=== PATIENT | female | born 1985 | race Two or more races ===

== ENCOUNTER → 2020-07-08 11:19 | Outpatient (BNVA) | payer MEDICAID, SELFPAY | PROVIDERS: Visit Provider Obstetrics & Gynecology | DX: Z76.89 Persons encountering health services in other specified circumstances (principal) ==

== ENCOUNTER 2020-11-19 21:19 | Emergency (ER) | payer MEDICAID, SELFPAY ==
[2020-11-19 21:59] VITALS: BP 134/80; PULSE 71; RESP 16; TEMP 36.6; O2SAT 100; BMI 21.6
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
[2020-11-20] MEDS: Lidocaine HCl 1 % MPF 5 ML VIAL SUBCUT (01:47)
[2020-11-20] MEDS: Ibuprofen 600 MG TABLET PO (02:01)
== END 2020-11-20 02:02 | disposition home or self-care (01) ==
PROVIDERS: Emergency Provider Emergency Medicine; PCP Internal Medicine
DX: M60.28 Foreign body granuloma of soft tissue, not elsewhere classified, other site (principal); Z18.81 Retained glass fragments
CPT/HCPCS: 20520; 99283; 99284

== ENCOUNTER 2022-02-05 22:07 | Emergency (ER) | payer MEDICAID, SELFPAY ==
--- NOTE | 2022-02-05 23:17 | PC.NURSE ---
pt called to triage, no answer
[2022-02-05 23:27] VITALS: BP 118/70; PULSE 80; RESP 20; TEMP 37.6; O2SAT 100; BMI 24.3
--- NOTE | 2022-02-06 00:22 | ED.EXTPRO ---
HPI - Extremity Problem General Chief complaint: Extremity Problem Stated complaint: knee/ thigh injury Time Seen by Provider: 02/05/22 23:24 Source: patient Mode of arrival: ambulatory Limitations: no limitations History of Present Illness HPI Narrative: Patient healthy was lifting heavy box at work about 4 days ago since then complaining of slight pain in the left lower back and left knee able to ambulate as such no swelling of the knee no prior history of knee or back problems Related Data Home Medications Medication Instructions Recorded Confirmed azithromycin 250 mg tablet mg PO 07/08/20 benzonatate 100 mg capsule 100 mg PO Q8H PRN cough 07/08/20 ussuptkfkp-hvbtmaqlmhjmi-echiavnk 1 tab PO TID PRN migraine 07/08/20 50 mg-325 mg-40 mg tablet docusate sodium 100 mg capsule 100 mg PO BID PRN 07/08/20 hydrochlorothiazide 12.5 mg capsule 12.5 mg PO DAILY 07/08/20 sertraline 50 mg tablet 50 mg PO DAILY 07/08/20 tramadol 50 mg tablet 50 mg PO Q12H PRN 07/08/20 Previous Rx's Medication Instructions Recorded ibuprofen 600 mg tablet 600 mg PO Q6H PRN pain #20 tabs 02/06/22 Allergies Allergy/AdvReac Type Severity Reaction Status Date / Time acetaminophen [ACETAMINOPHEN] Allergy Severe FATTY LIVER Unverified 02/05/22 23:31 sodium [SODIUM] Allergy Unknown UNKNOWN Unverified 02/05/22 23:31 sodium chloride Allergy Unknown Swelling Verified 02/05/22 23:31 Motrin Allergy Unknown Swelling Uncoded 02/05/22 23:31 Review of Systems Review of Systems: Yes all other systems are reviewed and are negative PMFSH Past Medical History Medical History Endometriosis Surgical History Tubal ligation status Social History Social History Alcohol intake: never Advance Directives: No Advance Directives Information Provided: Yes Physical Exam Vital Signs: Vital Signs: Last Vital Signs Temp 99.6 F 02/05/22 23:27 Pulse 80 02/05/22 23:27 Resp 20 02/05/22 23:27 BP 118/70 02/05/22 23:27 Pulse Ox 100 02/05/22 23:27 O2 Del Method 02/05/22 23:27 BMI result Body Mass Index 24.3 Back/Spine/Pelvis: Back/spine/pelvis image: 1. Slight tenderness no midline tenderness good range of movement Extrem: Knee images: 1. Slight tenderness about the patella good tendon function no knee effusion anterior drawer sign negative Huy's sign negative MDM - Extremity (Nontraumatic) MDM Narrative Medical decision making narrative: Patient with musculoskeletal lower back and left knee discharge patient home on ibuprofen Discharge Plan Discharge Clinical Impression: Strain of left knee Patient Disposition: Home, Self-Care Instructions: Knee Pain (ED) Additional Instructions: Rest your left knee apply Deangelo wrap or knee brace Ibuprofen for pain as prescribed Prescriptions: New ibuprofen 600 mg tablet 600 mg PO Q6H PRN (Reason: pain) Qty: 20 0RF No Action tramadol 50 mg tablet 50 mg PO Q12H PRN cgvpbdzftr-cgeskpgobgeqc-tccn 50-325-40 mg tablet 1 tab PO TID PRN (Reason: migraine) sertraline 50 mg tablet 50 mg PO DAILY hydrochlorothiazide 12.5 mg capsule 12.5 mg PO DAILY docusate sodium 100 mg capsule 100 mg PO BID PRN benzonatate 100 mg capsule 100 mg PO Q8H PRN (Reason: cough) azithromycin 250 mg tablet PO Interventions: ED Discharge Assessment Last Done: 02/06/22 00:30 Discharge Date/Time: 02/06/22 00:32
== END 2022-02-06 00:32 | disposition home or self-care (01) ==
PROVIDERS: Emergency Provider Internal Medicine
DX: S86.812A Strain of other muscle(s) and tendon(s) at lower leg level, left leg, initial encounter (principal); X50.0XXA Overexertion from strenuous movement or load, initial encounter; M54.50 Low back pain, unspecified; Y93.89 Activity, other specified; Y92.59 Other trade areas as the place of occurrence of the external cause; Y99.0 Civilian activity done for income or pay
CPT/HCPCS: 99282; 99283

== ENCOUNTER 2022-03-06 14:02 | Emergency (ER) | payer MEDICAID, SELFPAY ==
--- NOTE | ~2022-03-06 | XR_ITS ---
EXAMINATION: XR KNEE, RIGHT CLINICAL INFORMATION: Fall, bilateral knee pain COMPARISON: None TECHNIQUE: Four views of the right knee. FINDINGS: Bones and soft tissues are normal. No fracture or joint effusion. Alignment is anatomic. Joint spaces are well maintained. No abnormal soft tissue calcification. XR/XR knee RT 4V IMPRESSION: Normal right knee.
--- NOTE | ~2022-03-06 | XR_ITS ---
EXAMINATION: XR KNEE, LEFT CLINICAL INFORMATION: Fall, bilateral knee pain. COMPARISON: None TECHNIQUE: Four views of the left knee. FINDINGS: Bones and soft tissues are normal. No fracture or joint effusion. Alignment is anatomic. Joint spaces are well maintained. No abnormal soft tissue calcification. XR/XR knee LT 4V IMPRESSION: Normal left knee.
--- NOTE | ~2022-03-06 | CT_ITS ---
EXAMINATION: CT ANGIOGRAM OF THE CHEST WITH AND WITHOUT CONTRAST (CT PULMONARY ANGIOGRAM FOR PE) CLINICAL INFORMATION: Reason for Exam elevated d-dimer and bilateral leg swelling COMPARISON: Chest CT 01/18/2019 TECHNIQUE: Prior to contrast administration, noncontrast localization images were obtained. Subsequently, multidetector volumetric imaging was performed from the thoracic inlet to below the diaphragms following the administration of 61 mL Omnipaque 350 intravenous contrast. No contrast reaction reported Sagittal, coronal, and MIP oblique sagittal reformatted images were obtained on the CT workstation, uploaded to PACS, and reviewed. This CT examination was performed using dose optimization techniques as appropriate, variously including the following: *Automated exposure control *Adjustment of mA and/or kV according to patient size (this includes techniques or standardized protocols for targeted exams where dose is matched to indication/reason for exam; i.e. extremities or head) *Use of iterative reconstruction technique Total exam dose-length product 243 mGy-cm FINDINGS: QUALITY OF STUDY/CONTRAST BOLUS: Satisfactory. PULMONARY ARTERIES: No central or segmental pulmonary emboli. THORACIC AORTA: No aneurysm or dissection. LUNG: Tiny calcified granuloma along the horizontal fissure in the right lung. No noncalcified pulmonary nodules. No airspace consolidation. Central airways are clear. PLEURA: No pleural effusion or pneumothorax. MEDIASTINUM: Normal heart size. No pericardial effusion. No hilar or mediastinal lymphadenopathy. Soft tissue density in the anterior mediastinum is compatible with residual thymic tissue. No evidence of septal bowing or right heart strain. CHEST WALL/AXILLA: No axillary or internal mammary lymphadenopathy. OSSEOUS STRUCTURES: No acute or suspicious osseous abnormality. UPPER ABDOMEN: Status post cholecystectomy. Surgical clips in the gallbladder fossa. No biliary ductal dilation. Imaged upper abdominal viscera otherwise grossly unremarkable. No reflux of contrast into the hepatic veins to suggest elevated right heart pressures. CT/CT angio chest PE protocol IMPRESSION: 1. No evidence of pulmonary embolus. VTE: negative
--- NOTE | ~2022-03-06 | XR_ITS ---
EXAMINATION: XR CHEST CLINICAL INFORMATION: Leg swelling COMPARISON: Chest x-ray on 08/08/2019 TECHNIQUE: 2 views of the chest were obtained. FINDINGS: No significant abnormality is noted involving the heart, lungs, mediastinum, bony thorax or soft tissues. XR/XR chest 2V IMPRESSION: Unremarkable examination.
--- NOTE | ~2022-03-06 | XR_ITS ---
EXAMINATION: XR HIP, LEFT CLINICAL INFORMATION: Fall, left hip and bilateral knee pain COMPARISON: None TECHNIQUE: Two views of the left hip. PA view of the pelvis. FINDINGS: Bones and soft tissues are normal. No fracture. Alignment is anatomic. Hip joint space is maintained. XR/XR hip LT w PEL1V IMPRESSION: Normal left hip.
--- NOTE | ~2022-03-06 | US_ITS ---
EXAMINATION: US VENOUS ULTRASOUND WITH DOPPLER LOWER EXTREMITY, BILATERAL CLINICAL INFORMATION: Bilateral leg swelling with pain COMPARISON: None TECHNIQUE: Ultrasound of the deep veins is performed from the hip to the calf with compression sonography and color and pulse Doppler assessment. Spectral analysis with color-flow imaging is performed. FINDINGS: RIGHT: There is normal venous compression and respiratory variation and augmented flow. The visualized common femoral vein, superficial femoral vein, profunda femoral vein shows no evidence of deep venous thrombosis. There is echogenic material within the lumen of the right popliteal vein eccentrically, concerning for nonocclusive thrombus. Posterior tibial and peroneal veins are not well seen. There is dopplerable flow within the imaged of the vessels. LEFT: There is normal venous compression and respiratory variation and augmented flow. The visualized common femoral vein, superficial femoral vein, profunda femoral vein, popliteal vein, and the trifurcation region shows no evidence of deep venous thrombosis. Visualized posterior tibial and peroneal calf veins appear patent. US/US venous duplex LE BI IMPRESSION: 1. Findings concerning for small amount of nonocclusive thrombus in the right popliteal vein. 2. Limited assessment of the right calf veins. 3. No evidence of left lower extremity DVT. This critical result was discussed with Agata COLLINS at 8:40 PM on 03/06/2022 and it was ascertained that the content and urgency of the report was understood at the time of direct communication.
[2022-03-06 14:11] VITALS: BP 112/70; PULSE 87; RESP 16; TEMP 36.6; O2SAT 96; BMI 25.3
[2022-03-06] MEDS: oxyCODONE HCl Immed Release 5 MG TABLET PO (16:37)
[2022-03-06 17:17] LABS: MANUAL DIFF FLAG NO
[2022-03-06 17:19] LABS: Basophils Percent Auto 0.1 % (0-2); Eosinophils Percent Auto 0.1 % (0-4); Hematocrit 32.7 % (37.0-47.0); Hemoglobin 10.8 g/dl (12.0-16.0); Imm Gran Abs Auto 0.04 X10*3/uL (0.00-0.03); Imm Gran Pct Auto 0.4 % (0.0-0.4); Lymphocytes Absolute Auto 1.4 X10*3/uL (1.2-4.9); Mean Corpuscular Hemoglobin 26.7 pg (27.0-33.0); Mean Corpuscular Volume 80.7 fL (80.0-98.0); Mean Platelet Volume 11.1 fL (9.4-12.3); Monocytes Absolute Auto 0.7 X10*3/uL (0.1-1.2); Monocytes Percent Auto 7.6 % (2-11); Neutrophils Absolute Auto 7.1 x10*3/uL (2.0-8.3); Neutrophils Percent Auto 76.8 % (45-73); Platelet Count 208 X10*3/uL (160-400); Red Blood Count 4.05 X10*6/uL (4.20-5.50); Red Cell Distribution Width 13.5 % (11.0-16.0); White Blood Count 9.2 X10*3/uL (4.8-10.8)
[2022-03-06 17:25] LABS: INTERNATIONAL NORM RATIO 1.1 (0.9-1.1); Prothrombin Time 12.2 SEC (10.0-13.1)
[2022-03-06 17:27] LABS: D Dimer High Sensitivity 360 NG/ML
[2022-03-06 17:46] LABS: Alanine Aminotransferase 11 U/L (0-31); Albumin Level 4.4 g/dL (3.5-5.0); Alkaline Phosphatase 90 U/L (39-117); Anion Gap 15 (12-20); Aspartate Amino Transferase 16 U/L (5-31); Bilirubin Total 0.4 mg/dL (0.0-1.0); Blood Urea Nitrogen 10 mg/dL (9-16); Calcium 8.9 mg/dL (8.4-10.2); Carbon Dioxide 25 mmol/L (22-29); Chloride 102 mmol/L (96-108); Creatinine Clr Calc Pharmacy 108.5; Estimated Glomerular Filt Rate > 60; Glucose Random 91 mg/dL (60-115); Magnesium 2.3 mg/dL (1.6-2.6); Potassium 3.3 mmol/L (3.3-5.1); Sodium 139 mmol/L (135-145); Total Protein 7.2 g/dL (6.5-8.0)
[2022-03-06 17:54] LABS: B Type Natriuretic Peptide 39 pg/mL (<100)
--- NOTE | 2022-03-06 18:25 | ED.EXTPRO ---
HPI - Extremity Problem General Chief complaint: Extremity Injury, Lower <DENNIS Manley - Last Filed: 03/06/22 19:19> Stated complaint: knee pain/ankle pain, swollen <DENNIS Manley - Last Filed: 03/06/22 19:19> Time Seen by Provider: 03/06/22 16:08 <DENNIS Manley - Last Filed: 03/06/22 19:19> Source: patient <DENNIS Manley - Last Filed: 03/06/22 19:19> Mode of arrival: ambulatory <DENNIS Manley - Last Filed: 03/06/22 19:19> Limitations: no limitations <DENNIS Manley Last Filed: 03/06/22 19:19> History of Present Illness HPI Narrative: 36-year-old female who is [place]-speaking presenting to the ED with her daughter at bedside with a past medical history of hypertension endometriosis currently on 12.5 mg of hydrochlorothiazide recently increased to 25 mg over the past few weeks due to her PCP recommended presenting to the ED with increased bilateral leg swelling/pain from her knees down for the past few weeks worse today. She reports that this all initially started on 02/01/22 when she was at work and she carried a 50 lb box and her knees she came here for further evaluation treatment on 02/06/22 they explained to her that she had a strain she did not have any imaging although since then she has been having severe pain and now this swelling which she has never had in the past. She reports she has been having some difficulty walking in a few days ago she fell down approximately 12 steps injuring her left hip. She denies head injury loss of consciousness or prolonged down time or any symptoms prior to the fall. She reports only pain to left hip and worsening difficulty walking since she fell. She denies neck pain or back pain or injury. She denies any paresthesias, fevers, recent travel on a long plane train or car ride, hypercoagulation disorder that she is aware of, history of cancer or recent immobilization or surgery, any estrogen usage or any IV drug use. She is currently on Suboxone reports that she is on that due to she was given tramadol in the past and her PCP did not want her to get addicted therefore she they placed her on Suboxone for pain control. <DENNIS Manley - Last Filed: 03/06/22 19:19> MD Complaint: extremity swelling <DENNIS Manley - Last Filed: 03/06/22 19:19> Onset (ago): week(s) (2-3 weeks ) <DENNIS Manley - Last Filed: 03/06/22 19:19> Pain Consistency: constant <DENNIS Manley - Last Filed: 03/06/22 19:19> Location: left, right and lower extremity <DENNIS Manley - Last Filed: 03/06/22 19:19> Quality: burning <DENNIS Manley - Last Filed: 03/06/22 19:19> Radiation: distal <DENNIS Malney - Last Filed: 03/06/22 19:19> Relieving factors: nothing <DENNIS Manley - Last Filed: 03/06/22 19:19> Exacerbating factors: weight bearing, walking and palpation <DENNIS Manley - Last Filed: 03/06/22 19:19> Associated symptoms: denies other symptoms <DENNIS Manley - Last Filed: 03/06/22 19:19> Related Data Home medications: Home Medications Medication Instructions Recorded Confirmed azithromycin 250 mg tablet mg PO 07/08/20 benzonatate 100 mg capsule 100 mg PO Q8H PRN cough 07/08/20 glkpqsuhds-kqfyiyjjbhuba-lzoqgvtu 1 tab PO TID PRN migraine 07/08/20 50 mg-325 mg-40 mg tablet docusate sodium 100 mg capsule 100 mg PO BID PRN 07/08/20 hydrochlorothiazide 12.5 mg capsule 12.5 mg PO DAILY 07/08/20 sertraline 50 mg tablet 50 mg PO DAILY 07/08/20 tramadol 50 mg tablet 50 mg PO Q12H PRN 07/08/20 Previous Rx's Medication Instructions Recorded ibuprofen 600 mg tablet 600 mg PO Q6H PRN pain #20 tabs 02/06/22 apixaban 5 mg (74 tabs) tablets in 5 mg PO BID #74 ea 03/06/22 a dose pack (Eliquis DVT-PE Treat 30D Start) <DENNIS Manley - Last Filed: 03/06/22 19:19> Allergies/Adverse reactions: Allergies Allergy/AdvReac Type Severity Reaction Status Date / Time acetaminophen [ACETAMINOPHEN] Allergy Severe FATTY LIVER Verified 03/06/22 14:11 sodium [SODIUM] Allergy Unknown UNKNOWN Verified 03/06/22 14:11 sodium chloride Allergy Unknown Swelling Verified 03/06/22 14:11 Motrin Allergy Unknown Swelling Uncoded 02/05/22 23:31 <DENNIS Manley - Last Filed: 03/06/22 19:19> Review of Systems Review of Systems: Constitutional : No Weight loss, No Fever, No Chills, No Night Sweats, No Fatigue, No Malaise ENT/Mouth : No Hearing loss, No Ear Pain, No Nasal Congestion, No Sinus Pain, No Hoarseness, No sore throat, No Rhinorrhea, No Swallowing Difficulty Eyes: No Eye Pain, No Swelling, No Redness, No Foreign Body, No Discharge, No Vision Changes Cardiovascular : + bilateral lower leg edema, No Chest Pain, No SOB, No Dyspnea on Exertion, No Orthopnea, No Palpitations Respiratory : No Cough, No Sputum, No Wheezing, No Smoke Exposure, No Dyspnea Gastrointestinal : No Nausea, No Vomiting, No Diarrhea, No Constipation, No abdominal Pain, No Hematochezia, No Melena Genitourinary : no irregular bleeding, No Dysuria, No Urinary Frequency, No Hematuria, No Urinary Incontinence, No Urgency, No Flank Pain, No Urinary Flow Changes, No Hesitancy Musculoskeletal : No joint pain, No Myalgias, No Joint Swelling Skin : No Skin Lesions, No rash Neuro : No Weakness, No Numbness, No Paresthesias, No Loss of Consciousness, No Dizziness, No Headache Psych : No Anxiety/Panic, No Depression, No SI/HI/AH/VH, No Social Issues, Heme/Lymph: No Bruising, No Bleeding,No Lymphadenopathy Endocrine : No Polyuria, No Polydipsia, No Temperature Intolerance <DENNIS Manley - Last Filed: 03/06/22 19:19> Yes all other systems are reviewed and are negative <DENNIS Manely - Last Filed: 03/06/22 19:19> [facility] Past Medical History Attestation statement: The following information was validated with the patient. <DENNIS Manley Last Filed: 03/06/22 19:19> Source: old records reviewed, obtained from family and nursing notes reviewed <DENNIS Manley - Last Filed: 03/06/22 19:19> Medical History: Medical History Endometriosis <DENNIS Manley - Last Filed: 03/06/22 19:19> Surgical History: Surgical History Tubal ligation status <DENNIS Manley - Last Filed: 03/06/22 19:19> Social History Social History: Social History Alcohol intake: never Advance Directives: No Advance Directives Information Provided: No <DENNIS Manley - Last Filed: 03/06/22 19:19> Physical Exam Vital Signs: Vital Signs: Last Vital Signs Temp 97.9 F 03/06/22 14:11 Pulse 87 03/06/22 14:11 Resp 16 03/06/22 14:11 BP 112/70 03/06/22 14:11 Pulse Ox 96 03/06/22 14:11 O2 Del Method 03/06/22 14:11 BMI result Body Mass Index 25.3 vital signs have been reviewed as normal and appeared to be correct. Blood pressure normal. Heart rate normal. Respiration rate normal. Temperature normal. Oxygen saturation normal. <DENNIS Manley - Last Filed: 03/06/22 19:19> Vital Signs: Last Vital Signs Temp 97.9 F 03/06/22 14:11 Pulse 87 03/06/22 14:11 Resp 16 03/06/22 14:11 BP 112/70 03/06/22 14:11 Pulse Ox 96 03/06/22 14:11 O2 Del Method 03/06/22 14:11 BMI result Body Mass Index 25.3 <DENNIS Magana - Last Filed: 03/06/22 22:09> Appearance: Alert. Oriented X3. No acute distress. Head: Normal external exam. Normocephalic. Atraumatic. Eyes: PERRLA. EOMI. Conjunctiva and sclera normal. Eyelids normal. ENT: Pharynx normal. Uvula midline. Moist mucous membranes. No lesions/ulcerations or masses noted on the tongue. Normal voice. No trismus noted. No drooling noted. No muffled voice noted. Neck: Normal inspection. Neck supple. FROM. No adenopathy. Thyroid Normal. No meningeal signs. No neck mass noted. CVS: Normal heart rate and rhythm. Heart sound normal. Pulses normal throughout. No murmurs/rales/gallops. Respiratory: No respiratory distress. Painless inspiration. Breath sounds normal. No wheezes/rales/rhonchi noted. Chest nontender. No crepitus is noted. No accessory muscle usage noted or decreased air movement noted. Abdomen: Soft and nontender. Bowel sounds normal in all 4 quadrants. No distention noted. No organomegaly noted. No visible injury noted. Back: No CVA tenderness. Full range of motion noted. Nontender. No signs of trauma. Patient neuro intact bilaterally and distally on all 4 extremities. Patient's reflexes intact bilaterally and distally on all 4 extremities. No rashes/lesion/induration/fluctuance or signs of infection noted. Skin: Skin warm and dry. Normal skin color. Normal skin turgor. No rashes/lesions/lacerations noted. Extremities: Patient with bilateral knee tenderness although full range of motion no obvious ligamentous or tendon injury noted. Not consistent with joint effusion. She does have +1 lower extremity pitting edema in bilateral calf tenderness. She does also have some tenderness palpation to the left hip/buttocks with some bruising although no obvious deformities and she has full range of motion of bilateral hips no obvious ligamentous or tendon injury noted to bilateral hips. Otherwise all other Extremities exhibit normal range of motion and nontender. Neuro: Oriented X 3. No motor deficit. No sensory deficit. Reflexes normal. Normal steady gait. No focal neuro deficits noted. CN's II-XII intact bilaterally? Vascular: + radial pulses/+ 2 distal pedal pulses/+2 dorsalis pedis b/l. Normal cap refill. No cyanosis noted to upper extremity nails and lower extremity toes nails. <DENNIS Manley - Last Filed: 03/06/22 19:19> Course Course Course Narrative: 16:30pm - 36-year-old female who is [place]-speaking presenting to the ED with a past medical history of hypertension and endometriosis currently on 12.5 mg of hydrochlorothiazide recently increased to 25 mg over the past few weeks presenting to the ED with increased bilateral leg swelling/pain from her knees down for the past few weeks worse today. She reports that this all initially started on 02/01/22 when she was at work and she carried a 50 lb box and since then her knees have been having pains and swelling progressively worsening since January 2022. She came here for further evaluation treatment on 02/06/22 they explained to her that she had a strain she did not have any imaging. She reports she has been having some difficulty walking in a few days ago she fell down approximately 12 steps injuring her left hip. She denies head injury loss of consciousness or prolonged down time or any symptoms prior to the fall. She reports only pain to left hip and worsening difficulty walking since she fell. Plan: Will obtain labs, chest x-ray, venous duplex ultrasound of bilateral lower extremity, D-dimer, x-ray of left hip and bilateral knees provide symptomatic treatment with 5 mg of oxycodone and re-evaluate. <DENNIS Manley - Last Filed: 03/06/22 19:19> Reevaluation(s) Reevaluation #1: - labs reviewed patient with an H&H of 10.8/32.7 this is new when compared to prior although our priors are and 2019. Patient denies any bleeding at this time. D-dimer [address] at this time although patient denies any shortness of breath/dyspnea on exertion or orthopnea or chest pain. Otherwise all other labs are within normal limits. BNP is 39. Chest x-ray is within normal limits no acute processes noted. Left hip x-ray within normal limits no acute processes noted. Bilateral knee x-rays within normal limits no acute processes noted. - at this time waiting for CT and bilateral duplex ultrasound of lower extremity. If negative patient most likely pedal edema. Sign out to [facility] <DENNIS Manley - Last Filed: 03/06/22 19:19> Time: 18:42 <DENNIS Manley - Last Filed: 03/06/22 19:19> Reevaluation #2: Patient was noted to have a nonocclusive thrombus in the right popliteal vein. No evidence of left lower extremity DVT. CTA without acute findings. I reached out to Dr. Byrd who recommends Eliquis and follow up with PCP promptly. Patient will be started on Eliquis, she has normal platelets and coags. Advised her to look out for any bleeding, if she is bleeding she is to return for further evaluation. Advised her to not take aspirin or ibuprofen. At this time patient will be discharged home with Eliquis. Advised for for prompt PCP follow-up. <DENNIS Magana - Last Filed: 03/06/22 22:09> Time: 22:09 <DENNIS Magana - Last Filed: 03/06/22 22:09> MDM - Extremity (Nontraumatic) Medical Records Attestation: I reviewed the patient's medical records. <DENNIS Manley - Last Filed: 03/06/22 19:19> Lab Data Attestation: I reviewed the patient's lab results. <DENNIS Manley - Last Filed: 03/06/22 19:19> Result diagrams: : 03/06/22 17:08 03/06/22 17:08 <DENNIS Manley - Last Filed: 03/06/22 19:19> Labs: Lab Results 03/06/22 03/06/22 03/06/22 Range/Units 17:08 17:08 17:08 WBC 9.2 (4.8-10.8) X10*3/uL RBC 4.05 L (4.20-5.50) X10*6/uL Hgb 10.8 L (12.0-16.0) g/dl Hct 32.7 L (37.0-47.0) % MCV 80.7 (80.0-98.0) fL MCH 26.7 L (27.0-33.0) pg MCHC 33.0 (31.0-35.0) g/dl RDW 13.5 (11.0-16.0) % Plt Count 208 (160-400) X10*3/uL MPV 11.1 (9.4-12.3) fL Immature Gran % (Auto) 0.4 (0.0-0.4) % Neut % (Auto) 76.8 H (45-73) % Lymph % (Auto) 15.0 L (20-40) % [place] % (Auto) 7.6 (2-11) % Eos % (Auto) 0.1 (0-4) % Baso % (Auto) 0.1 (0-2) % Lymph # (Auto) 1.4 (1.2-4.9) X10*3/uL [place] # (Auto) 0.7 (0.1-1.2) X10*3/uL Eos # (Auto) 0.0 (0.0-0.4) X10*3/uL Baso # (Auto) 0.0 (0.0-0.2) X10*3/uL Abs Immat Gran (auto) 0.04 H (0.00-0.03) X10*3/uL Absolute Neuts (auto) 7.1 (2.0-8.3) x10*3/uL Absolute Nucleated RBC 0.000 (0.0-0.012) X10*3/uL Nucleated RBC % (auto) 0.0 (0.0-0.2) /100WBC PT 12.2 (10.0-13.1) SEC INR 1.1 (0.9-1.1) D-Dimer High Sensitivty 360 NG/ML Sodium 139 (135-145) mmol/L Potassium 3.3 (3.3-5.1) mmol/L Chloride 102 (96-108) mmol/L Carbon Dioxide 25 (22-29) mmol/L Anion Gap 15 (12-20) BUN 10 (9-16) mg/dL Creatinine 0.71 (0.5-1.4) mg/dL Estim Creat Clear Calc 108.5 Estimated GFR > 60 Random Glucose 91 (60-115) mg/dL Calcium 8.9 (8.4-10.2) mg/dL Magnesium 2.3 (1.6-2.6) mg/dL Total Bilirubin 0.4 (0.0-1.0) mg/dL AST 16 (5-31) U/L ALT 11 (0-31) U/L Alkaline Phosphatase 90 (39-117) U/L B-Natriuretic Peptide (<100) pg/mL Total Protein 7.2 (6.5-8.0) g/dL Albumin 4.4 (3.5-5.0) g/dL 03/06/22 Range/Units 17:08 WBC (4.8-10.8) X10*3/uL RBC (4.20-5.50) X10*6/uL Hgb (12.0-16.0) g/dl Hct (37.0-47.0) % MCV (80.0-98.0) fL MCH (27.0-33.0) pg MCHC (31.0-35.0) g/dl RDW (11.0-16.0) % Plt Count (160-400) X10*3/uL MPV (9.4-12.3) fL Immature Gran % (Auto) (0.0-0.4) % Neut % (Auto) (45-73) % Lymph % (Auto) (20-40) % [place] % (Auto) (2-11) % Eos % (Auto) (0-4) % Baso % (Auto) (0-2) % Lymph # (Auto) (1.2-4.9) X10*3/uL [place] # (Auto) (0.1-1.2) X10*3/uL Eos # (Auto) (0.0-0.4) X10*3/uL Baso # (Auto) (0.0-0.2) X10*3/uL Abs Immat Gran (auto) (0.00-0.03) X10*3/uL Absolute Neuts (auto) (2.0-8.3) x10*3/uL Absolute Nucleated RBC (0.0-0.012) X10*3/uL Nucleated RBC % (auto) (0.0-0.2) /100WBC PT (10.0-13.1) SEC INR (0.9-1.1) D-Dimer High Sensitivty NG/ML Sodium (135-145) mmol/L Potassium (3.3-5.1) mmol/L Chloride (96-108) mmol/L Carbon Dioxide (22-29) mmol/L Anion Gap (12-20) BUN (9-16) mg/dL Creatinine (0.5-1.4) mg/dL Estim Creat Clear Calc Estimated GFR Random Glucose (60-115) mg/dL Calcium (8.4-10.2) mg/dL Magnesium (1.6-2.6) mg/dL Total Bilirubin (0.0-1.0) mg/dL AST (5-31) U/L ALT (0-31) U/L Alkaline Phosphatase (39-117) U/L B-Natriuretic Peptide 39 (<100) pg/mL Total Protein (6.5-8.0) g/dL Albumin (3.5-5.0) g/dL <DENNIS Manley - Last Filed: 03/06/22 19:19> Lab Results 03/06/22 03/06/22 03/06/22 Range/Units 17:08 17:08 17:08 WBC 9.2 (4.8-10.8) X10*3/uL RBC 4.05 L (4.20-5.50) X10*6/uL Hgb 10.8 L (12.0-16.0) g/dl Hct 32.7 L (37.0-47.0) % MCV 80.7 (80.0-98.0) fL MCH 26.7 L (27.0-33.0) pg MCHC 33.0 (31.0-35.0) g/dl RDW 13.5 (11.0-16.0) % Plt Count 208 (160-400) X10*3/uL MPV 11.1 (9.4-12.3) fL Immature Gran % (Auto) 0.4 (0.0-0.4) % Neut % (Auto) 76.8 H (45-73) % Lymph % (Auto) 15.0 L (20-40) % [place] % (Auto) 7.6 (2-11) % Eos % (Auto) 0.1 (0-4) % Baso % (Auto) 0.1 (0-2) % Lymph # (Auto) 1.4 (1.2-4.9) X10*3/uL [place] # (Auto) 0.7 (0.1-1.2) X10*3/uL Eos # (Auto) 0.0 (0.0-0.4) X10*3/uL Baso # (Auto) 0.0 (0.0-0.2) X10*3/uL Abs Immat Gran (auto) 0.04 H (0.00-0.03) X10*3/uL Absolute Neuts (auto) 7.1 (2.0-8.3) x10*3/uL Absolute Nucleated RBC 0.000 (0.0-0.012) X10*3/uL Nucleated RBC % (auto) 0.0 (0.0-0.2) /100WBC PT 12.2 (10.0-13.1) SEC INR 1.1 (0.9-1.1) D-Dimer High Sensitivty 360 NG/ML Sodium 139 (135-145) mmol/L Potassium 3.3 (3.3-5.1) mmol/L Chloride 102 (96-108) mmol/L Carbon Dioxide 25 (22-29) mmol/L Anion Gap 15 (12-20) BUN 10 (9-16) mg/dL Creatinine 0.71 (0.5-1.4) mg/dL Estim Creat Clear Calc 108.5 Estimated GFR > 60 Random Glucose 91 (60-115) mg/dL Calcium 8.9 (8.4-10.2) mg/dL Magnesium 2.3 (1.6-2.6) mg/dL Total Bilirubin 0.4 (0.0-1.0) mg/dL AST 16 (5-31) U/L ALT 11 (0-31) U/L Alkaline Phosphatase 90 (39-117) U/L B-Natriuretic Peptide (<100) pg/mL Total Protein 7.2 (6.5-8.0) g/dL Albumin 4.4 (3.5-5.0) g/dL 03/06/22 Range/Units 17:08 WBC (4.8-10.8) X10*3/uL RBC (4.20-5.50) X10*6/uL Hgb (12.0-16.0) g/dl Hct (37.0-47.0) % MCV (80.0-98.0) fL MCH (27.0-33.0) pg MCHC (31.0-35.0) g/dl RDW (11.0-16.0) % Plt Count (160-400) X10*3/uL MPV (9.4-12.3) fL Immature Gran % (Auto) (0.0-0.4) % Neut % (Auto) (45-73) % Lymph % (Auto) (20-40) % [place] % (Auto) (2-11) % Eos % (Auto) (0-4) % Baso % (Auto) (0-2) % Lymph # (Auto) (1.2-4.9) X10*3/uL [place] # (Auto) (0.1-1.2) X10*3/uL Eos # (Auto) (0.0-0.4) X10*3/uL Baso # (Auto) (0.0-0.2) X10*3/uL Abs Immat Gran (auto) (0.00-0.03) X10*3/uL Absolute Neuts (auto) (2.0-8.3) x10*3/uL Absolute Nucleated RBC (0.0-0.012) X10*3/uL Nucleated RBC % (auto) (0.0-0.2) /100WBC PT (10.0-13.1) SEC INR (0.9-1.1) D-Dimer High Sensitivty NG/ML Sodium (135-145) mmol/L Potassium (3.3-5.1) mmol/L Chloride (96-108) mmol/L Carbon Dioxide (22-29) mmol/L Anion Gap (12-20) BUN (9-16) mg/dL Creatinine (0.5-1.4) mg/dL Estim Creat Clear Calc Estimated GFR Random Glucose (60-115) mg/dL Calcium (8.4-10.2) mg/dL Magnesium (1.6-2.6) mg/dL Total Bilirubin (0.0-1.0) mg/dL AST (5-31) U/L ALT (0-31) U/L Alkaline Phosphatase (39-117) U/L B-Natriuretic Peptide 39 (<100) pg/mL Total Protein (6.5-8.0) g/dL Albumin (3.5-5.0) g/dL <DENNIS Magana - Last Filed: 03/06/22 22:09> Imaging Data Chest x-ray: Attestation: I personally reviewed and interpreted this imaging study as follows: <DENNIS Manley - Last Filed: 03/06/22 19:19> Radiologist's impression: FINDINGS: No significant abnormality is noted involving the heart, lungs, mediastinum, bony thorax or soft tissues. XR/XR chest 2V IMPRESSION: Unremarkable examination. <DENNIS Manley - Last Filed: 03/06/22 19:19> Left hip and pelvis x-ray: Attestation: I personally reviewed and interpreted this imaging study as follows: <DENNIS Manley - Last Filed: 03/06/22 19:19> Radiologist's impression: FINDINGS: Bones and soft tissues are normal. No fracture. Alignment is anatomic. Hip joint space is maintained. XR/XR hip LT w [id number] IMPRESSION: Normal left hip. <DENNIS Manley - Last Filed: 03/06/22 19:19> Bilateral knee x-ray: Attestation: I personally reviewed and interpreted this imaging study as follows: <DENNIS Manley - Last Filed: 03/06/22 19:19> Radiologist's impression: FINDINGS: Bones and soft tissues are normal. No fracture or joint effusion. Alignment is anatomic. Joint spaces are well maintained. No abnormal soft tissue calcification.? XR/XR knee LT 4V IMPRESSION: Normal left knee. FINDINGS: Bones and soft tissues are normal. No fracture or joint effusion. Alignment is anatomic. Joint spaces are well maintained. No abnormal soft tissue calcification.? XR/XR knee RT 4V IMPRESSION: Normal right knee. <DENNIS Mnaley - Last Filed: 03/06/22 19:19> Critical Care Time Critical Care Time Critical Care Time: Yes <DENNIS Manley - Last Filed: 03/06/22 19:19> Total Critical Care Time: 60 <DENNIS Manley - Last Filed: 03/06/22 19:19> Attestation: I personally attest to this time spent taking care of the patient <DENNIS Manley - Last Filed: 03/06/22 19:19> Discharge Plan Discharge Clinical Impression: Deep vein blood clot of right lower extremity, Pedal edema, Sprain of left hip, Fall, Left knee sprain, Right knee sprain, Anemia <DENNIS Manley Last Filed: 03/06/22 19:19> Patient Disposition: Home, Self-Care <DENNIS Manley Last Filed: 03/06/22 19:19> Instructions: Knee Sprain (ED), Hip Sprain (ED), Anemia (ED), Fall Prevention (ED), Edema (ED) <DENNIS Manley Last Filed: 03/06/22 19:19> Additional Instructions: Take your medications as prescribed. If you were prescribed antibiotics today, it is important that you take your medication to their entirety, do not skip any doses, do not finish them early. Follow-up with your primary care provider this week. Return to the emergency department with new or worsening symptoms. Such as fevers, chills, chest pain, shortness of breath, nausea, vomiting, dizziness, headache, vision changes, lethargy In case of emergency call 911 You will be started on Eliquis, this is a blood thinner to take care of the blood clot in your right lower extremity, it is important that you take this medication as prescribed, follow-up with your PCP for chronic management of this. If you fall or hit your head it is important that you be evaluated as you are now on a blood thinner. This increases chances of bleeding. Do not take aspirin or ibuprofen with this blood thinner as it increases chances of bleeding US/US venous duplex LE BI IMPRESSION: ? 1. Findings concerning for small amount of nonocclusive thrombus in the right popliteal vein. 2. Limited assessment of the right calf veins. 3. No evidence of left lower extremity DVT. CT/CT angio chest PE protocol IMPRESSION: ? 1. No evidence of pulmonary embolus. ? VTE: negative ? <DENNIS Manley Last Filed: 03/06/22 19:19> Prescriptions: New Eliquis DVT-PE Treat 30D Start 5 mg (74 tabs) tablets,dose pack 5 mg PO BID Qty: 74 0RF No Action ibuprofen 600 mg tablet 600 mg PO Q6H PRN (Reason: pain) Qty: 20 0RF tramadol 50 mg tablet 50 mg PO Q12H PRN kovymyysbm-aoyetqzleptbm-tgtl 50-325-40 mg tablet 1 tab PO TID PRN (Reason: migraine) sertraline 50 mg tablet 50 mg PO DAILY hydrochlorothiazide 12.5 mg capsule 12.5 mg PO DAILY docusate sodium 100 mg capsule 100 mg PO BID PRN benzonatate 100 mg capsule 100 mg PO Q8H PRN (Reason: cough) azithromycin 250 mg tablet PO <DENNIS Manley - Last Filed: 03/06/22 19:19> Referrals: Kelsey Huggins MD [Primary Care Provider] - 2 days <DENNIS Manley - Last Filed: 03/06/22 19:19>
[2022-03-06] MEDS: iohexoL 350 MG/ML 100 ML INFUS..BTL IV (19:45)
== END 2022-03-06 22:57 | disposition home or self-care (01) ==
PROVIDERS: Physician Assistant Medical; Emergency Provider Emergency Medicine; PCP Internal Medicine
DX: I82.431 Acute embolism and thrombosis of right popliteal vein (principal); R60.0 Localized edema; S83.91XA Sprain of unspecified site of right knee, initial encounter; S83.92XA Sprain of unspecified site of left knee, initial encounter; S73.102A Unspecified sprain of left hip, initial encounter; M79.605 Pain in left leg; M79.604 Pain in right leg; D64.9 Anemia, unspecified; M25.552 Pain in left hip; I10 Essential (primary) hypertension; W10.9XXA Fall (on) (from) unspecified stairs and steps, initial encounter; Y93.9 Activity, unspecified; Y92.9 Unspecified place or not applicable; Y99.9 Unspecified external cause status; Z79.891 Long term (current) use of opiate analgesic
CPT/HCPCS: 36415; 71046; 71275; 73502; 73564; 80053; 83735; 83880; 85025; 85379; 85610; 93970; 99283; 99284; Q9967

== ENCOUNTER 2022-05-09 15:13 | Emergency (ER) | payer MEDICAID, SELFPAY ==
--- NOTE | ~2022-05-09 | US_ITS ---
EXAMINATION: US VENOUS ULTRASOUND WITH DOPPLER LOWER EXTREMITY, BILATERAL CLINICAL INFORMATION: Pain, rule out DVT COMPARISON: None TECHNIQUE: Ultrasound of the deep veins is performed from the hip to the calf with compression sonography and color and pulse Doppler assessment. Spectral analysis with color-flow imaging is performed. FINDINGS: RIGHT: There is normal venous compression and respiratory variation and augmented flow. The visualized common femoral vein, superficial femoral vein, profunda femoral vein, popliteal vein, and the trifurcation region shows no evidence of deep venous thrombosis. There is no significant popliteal fossa cyst. LEFT: There is normal venous compression and respiratory variation and augmented flow. The visualized common femoral vein, superficial femoral vein, profunda femoral vein, popliteal vein, and the trifurcation region shows no evidence of deep venous thrombosis. There is no significant popliteal fossa cyst. If the patient's symptoms persist, followup ultrasound in 5 days 7 days might be of value to exclude proximal propagation from a non-visualized calf vein. US/US venous duplex LE BI IMPRESSION: No DVT demonstrated in the bilateral lower extremity.
[2022-05-09 15:50] VITALS: BP 107/75; PULSE 97; RESP 16; TEMP 37.6; O2SAT 98; BMI 26.4
--- NOTE | 2022-05-09 17:09 | PC.NURSE ---
called to emc x 2 no answer
--- NOTE | 2022-05-09 20:52 | ED.GENADULT ---
HPI - General Adult General Chief complaint: Extremity Problem Stated complaint: pain in both legs Time Seen by Provider: 05/09/22 20:52 Source: patient Mode of arrival: ambulatory Limitations: no limitations History of Present Illness HPI narrative: Patient is a 36 year old female presenting to the emergency department today with bilateral leg pain. Patient states that she has a history of a DVT and is currently on Xarelto. Patient states that she is concerned that she may have another clot. Patient denies any dizziness, lightheadedness, abdominal pain, nausea, vomiting, fever, chills, blurry vision, double vision, loss of vision, chest pain, difficulty breathing, shortness of breath, back pain, night sweats, pain with urination, increased urinary frequency, increased urinary urgency, blood in her urine or stool, syncope or a near syncopal episode, recent trauma or falls, bowel incontinence, bladder incontinence, bowel retention, bladder retention, or any other complaints at this time. Onset (ago): day(s) Location: left, right and lower extremity Radiation: non-radiation Severity: mild Severity scale (1-10): 2 Quality: aching and dull Pain Consistency: constant Relieving factors: none Exacerbating factors: none Associated symptoms: denies other symptoms Treatments prior to arrival: none Related Data Home Medications Medication Instructions Recorded Confirmed azithromycin 250 mg tablet mg PO 07/08/20 benzonatate 100 mg capsule 100 mg PO Q8H PRN cough 07/08/20 03/16/22 [id number]-[id number] 1 tab PO TID PRN migraine 07/08/20 03/16/22 50 mg-325 mg-40 mg tablet hydrochlorothiazide 12.5 mg capsule 12.5 mg PO DAILY 07/08/20 03/16/22 sertraline 50 mg tablet 50 mg PO DAILY 07/08/20 03/16/22 tramadol 50 mg tablet 50 mg PO Q12H PRN Pain, Severe 07/08/20 03/16/22 Previous Rx's Medication Instructions Recorded ibuprofen 600 mg tablet 600 mg PO Q6H PRN pain #20 tabs 02/06/22 apixaban 5 mg (74 tabs) tablets in 5 mg PO BID #74 ea 03/06/22 a dose pack (Appies DVT-PE Treat 30D Start) oxycodone 5 mg capsule 5 mg PO BID PRN pain #8 caps 03/06/22 ferrous sulfate 325 mg (65 mg 325 mg PO BID #60 tabs 03/16/22 iron) tablet (iron) Allergies Allergy/AdvReac Type Severity Reaction Status Date / Time acetaminophen [ACETAMINOPHEN] Allergy Severe FATTY LIVER Verified 03/16/22 16:10 sodium [SODIUM] Allergy Unknown UNKNOWN Verified 03/16/22 16:10 sodium chloride Allergy Unknown Swelling Verified 03/16/22 16:10 Motrin Allergy Unknown Swelling Uncoded 03/16/22 16:10 Review of Systems Constitutional: Constitutional: Reports no additional constitutional complaints, Denies chills, Denies fever(s) and Denies night sweats Eyes: Eyes: Reports no additional eye complaints, Denies blurry vision, Denies change in vision, Denies diplopia, Denies eye discharge, Denies loss of vision and Denies eye pain ENT: Denies dizziness Cardiovascular: Cardiovascular: Reports no additional cardiovascular complaints, Denies chest pain, Denies lightheadedness, Denies Loss of Consciousness and Denies dyspnea Respiratory: Respiratory: Reports no additional respiratory complaints and Denies dyspnea Gastrointestinal: Gastrointestinal: Reports no additional gastrointestinal complaints, Denies abdominal pain, Denies melena, Denies hematochezia, Denies change in bowel habits and Denies change in stool character Genitourinary: Genitourinary: Denies hematuria, Denies urinary frequency, Denies dysuria, Denies urinary incontinence, Denies urinary hesitancy and Denies urinary urgency Musculoskeletal: Musculoskeletal: Reports no additional musculoskeletal complaints, Denies numbness and Denies tingling Comments: bilateral lower leg pain Neurologic: Denies dizziness, Denies loss of vision, Denies numbness and Denies tingling Psychiatric: Psychiatric: Reports no additional psychiatric complaints Endocrine: Endocrine: Reports no additional endocrine complaints Hematologic/Lymphatic: Hematologic/Lymphatic: Reports no additional hematologic/lymphatic complaints Allergic/Immunologic: Allergic/Immunologic: Reports no additional allergic/immunologic complaints [facility] Past Medical History Attestation statement: The following information was validated with the patient. Source: old records reviewed Medical History Endometriosis Surgical History Tubal ligation status Family History Family History Mother Arthritis Maternal Grandmother Arthritis Mother Epilepsia Paternal Grandmother Cancer Social History Social History Household Members: Children Housing: Apartment Alcohol intake: never Patient Tobacco Use Status: Current everyday Tobacco user Tobacco use type: Cigarette Advance Directives: No service: No Current occupational status: employed Physical Exam ED Vital Signs: Vital Signs - 24 hr 05/09/22 15:50 Temperature 99.7 F Pulse Rate 97 Respiratory Rate 16 Blood Pressure 107/75 Pulse Oximetry 98 Oxygen Delivery Method Room Air BMI result Body Mass Index 26.4 Const General: cooperative, no acute distress, alert and awake Nutritional Appearance: well nourished Orientation/consciousness: patient oriented x3 Limitations: no limitations HENMT Head: Yes normal to inspection and Yes atraumatic Ears: hearing grossly normal bilaterally and external ears normal General nose exam: Normal external nose present, no nasal discharge noted and no epistaxis Face and sinus: Yes normal facial exam, No abrasion and No laceration Mouth: Normal oral and palatal mucosa present, no drooling and no muffled voice Eyes General: appearance normal, both eyes and all related structures Periorbital: periorbital findings normal Eyelids: Yes eyelids normal Conjunctivae: conjunctivae normal Pupils: Equal, round and reactive pupils present EOM: EOMs intact bilaterally Neck Neck: Yes normal visual inspection, Yes full ROM and Yes no lymphadenopathy Chest Chest palpation & inspection: normal inspection of the chest Resp Effort & Inspection: normal respiratory effort and able to speak in complete sentences Auscultation: clear to auscultation bilaterally Cardio Rate: regular rate Rhythm: regular rhythm GI Inspection: Yes normal to inspection Neuro General: patient oriented x3 and moves all extremities Cranial nerves: Yes Equal, round and reactive pupils present Cognition (Neuro): normal cognition Motor exam (neuro): 5/5 motor strength present throughout Sensory Exam: Normal double simultaneous stimulation for sensation Coordination: [id number] test normal Extrem General: Yes normal to inspection, Yes full ROM and Yes capillary refill normal Psych Appearance: grossly normal Mental Status: mental status grossly normal Affect: normal affect Attitude: cooperative Thought process: Normal thought process present Thought content: Normal thought content present Insight: Good insight present (Psych) Medical Decision Making MDM Narrative Medical decision making narrative: Patient is a 36 year old female presenting to the emergency department today with bilateral lower leg pain. Patient's physical exam was unremarkable. Patient's bilateral lower leg US showed no acute process. I explained my physical exam findings as well as all test results to the patient. I answered all questions asked by the patient. Patient received PO Flexeril which she stated helped her pain significantly. I stressed the importance of the patient taking her medication as prescribed. I stressed the importance of the patient following up with her primary care provider. I stressed the importance of the patient returning to the emergency department immediately if her symptoms were to worsen or if she were to develop any dizziness, shortness of breath, difficulty breathing, chest pain, blurry vision, loss of vision, nausea, vomiting, abdominal pain, fever, chills, back pain, or any other complaints. Patient verbalized agreement and understanding with this treatment plan and discharge. Medical Records Medical records reviewed: Yes I reviewed the patient's medical records. Imaging Data Venous US: Attestation: I personally reviewed and interpreted this imaging study as follows: My impression: No acute process. Radiologist's impression: EXAMINATION:? US VENOUS ULTRASOUND WITH DOPPLER LOWER EXTREMITY, BILATERAL CLINICAL INFORMATION:? Pain, rule out DVT COMPARISON:? None TECHNIQUE: Ultrasound of the deep veins is performed from the hip to the calf with compression sonography and color and pulse Doppler assessment. Spectral analysis with color-flow imaging is performed. FINDINGS: RIGHT: There is normal venous compression and respiratory variation and augmented flow. The visualized common femoral vein, superficial femoral vein, profunda femoral vein, popliteal vein, and the trifurcation region shows no evidence of deep venous thrombosis. ? There is no significant popliteal fossa cyst. LEFT: There is normal venous compression and respiratory variation and augmented flow. The visualized common femoral vein, superficial femoral vein, profunda femoral vein, popliteal vein, and the trifurcation region shows no evidence of deep venous thrombosis. ? There is no significant popliteal fossa cyst. If the patient's symptoms persist, followup ultrasound in 5 days 7 days might be of value to exclude proximal propagation from a non-visualized calf vein. US/US venous duplex LE BI IMPRESSION: No DVT demonstrated in the bilateral lower extremity. Dictated By: Chung Monte MD Signed By: Electronically signed by Chung Monte MD 05/09/22 [id number] Discharge Plan Discharge Clinical Impression: Acute leg pain Patient Disposition: Home, Self-Care Instructions: Leg Pain (ED) Additional Instructions: Follow up with your primary care provider. Return to the emergency department immediately if your symptoms worsen or if you develop any dizziness, shortness of breath, difficulty breathing, chest pain, blurry vision, loss of vision, nausea, vomiting, abdominal pain, fever, chills, back pain, or any other complaints. Prescriptions: No Action ferrous sulfate [iron] 325 mg (65 mg iron) Tablet 325 mg PO BID Qty: 60 3RF ibuprofen 600 mg tablet 600 mg PO Q6H PRN (Reason: pain) Qty: 20 0RF Eliquis DVT-PE Treat 30D Start 5 mg (74 tabs) tablets,dose pack 5 mg PO BID Qty: 74 0RF oxycodone 5 mg capsule 5 mg PO BID PRN (Reason: pain) Qty: 8 0RF Rx Instructions: Partial Fill upon patient request. tramadol 50 mg tablet 50 mg PO Q12H PRN (Reason: Pain, Severe) keykxkbxlt-wntxbflawsaio-dotl 50-325-40 mg tablet 1 tab PO TID PRN (Reason: migraine) sertraline 50 mg tablet 50 mg PO DAILY hydrochlorothiazide 12.5 mg capsule 12.5 mg PO DAILY benzonatate 100 mg capsule 100 mg PO Q8H PRN (Reason: cough) azithromycin 250 mg tablet PO Referrals: [facility] [place] [facility] [Provider Group] (Call to establish and follow up with an orthopedic provider. ) Kelsey Huggins MD [Primary Care Provider] - Interventions: ED Discharge Assessment Last Done: 05/09/22 21:27 Discharge Date/Time: 05/09/22 21:28 Print Language: Yi
== END 2022-05-09 21:28 | disposition home or self-care (01) ==
PROVIDERS: Emergency Provider Internal Medicine; PCP Internal Medicine
DX: M79.604 Pain in right leg (principal); M79.605 Pain in left leg; R60.0 Localized edema; F17.210 Nicotine dependence, cigarettes, uncomplicated; Z79.899 Other long term (current) drug therapy; Z71.6 Tobacco abuse counseling
CPT/HCPCS: 93970; 99282; 99283

== ENCOUNTER 2022-05-12 08:23 | Outpatient (REF) | payer MEDICAID, SELFPAY ==
[2022-05-12 08:46] LABS: COVID-19 Test Negative (Negative); IDNOW Serial# 16C4AD1C
== END 2022-05-12 08:24 | disposition home or self-care (01) ==
LOC: HO.LAB 08:23
PROVIDERS: Visit Provider Internal Medicine
DX: Z20.822 Contact with and (suspected) exposure to COVID-19 (principal)
CPT/HCPCS: 87635; C9803

== ENCOUNTER 2022-05-12 16:51 | Outpatient (REF) | payer MEDICAID, SELFPAY ==
--- NOTE | ~2022-05-12 | CT_ITS ---
EXAMINATION: CT HEAD WITHOUT CONTRAST CLINICAL INFORMATION: Vomiting. Headache. COMPARISON: None. TECHNIQUE: Contiguous axial imaging was performed from the skull base to vertex without intravenous administration of contrast. Coronal and sagittal reformatted images are performed at the CT scanner. [This CT examination was performed using dose optimization techniques as appropriate, variously including the following: *Automated exposure control *Adjustment of mA and/or kV according to patient size (this includes techniques or standardized protocols for targeted exams where dose is matched to indication/reason for exam; i.e. extremities or head) *Use of iterative reconstruction technique] DLP: 757 mGy-cm. FINDINGS: There is no evidence of acute intracranial hemorrhage or territorial infarction. No abnormal mass-effect or midline shift is seen. Rivera to white matter differentiation is well preserved. No extra-axial fluid collections are identified. The ventricles are normal in size. There is no abnormal attenuation within the brain parenchyma. There is no osseous abnormality. The mastoid air cells and visualized portions of the paranasal sinuses are well-aerated. CT/CT head/brain wo IV con IMPRESSION: No acute intracranial pathology.
== END 2022-05-12 16:52 | disposition home or self-care (01) ==
LOC: HO.CT 16:51
PROVIDERS: PCP Internal Medicine; Visit Provider Emergency Medicine
DX: R51.9 Headache, unspecified (principal); R11.2 Nausea with vomiting, unspecified
CPT/HCPCS: 36415; 70450; 80048; 85027; 99283

== ENCOUNTER 2022-05-12 17:41 | Emergency (ER) | payer MEDICAID, SELFPAY ==
[2022-05-12 18:34] VITALS: BP 108/77; PULSE 65; RESP 16; TEMP 36.8; O2SAT 98; BMI 24.5
[2022-05-12 19:21] LABS: Hematocrit 39.7 % (37.0-47.0); Hemoglobin 12.8 g/dl (12.0-16.0); Mean Corpuscular HGB Conc 32.2 g/dl (31.0-35.0); Mean Corpuscular Volume 77.7 fL (80.0-98.0); Mean Platelet Volume 10.4 fL (9.4-12.3); Platelet Count 321 X10*3/uL (160-400); Red Blood Count 5.11 X10*6/uL (4.20-5.50); Red Cell Distribution Width 14.6 % (11.0-16.0); White Blood Count 8.8 X10*3/uL (4.8-10.8)
[2022-05-12 19:37] LABS: Anion Gap 17 (12-20); Blood Urea Nitrogen 16 mg/dL (9-16); Calcium 9.6 mg/dL (8.4-10.2); Carbon Dioxide 33 mmol/L (22-29); Chloride 96 mmol/L (96-108); Creatinine Clr Calc Pharmacy 102.5; Estimated Glomerular Filt Rate > 60; Glucose Random 112 mg/dL (60-115); Potassium 3.2 mmol/L (3.3-5.1); Sodium 143 mmol/L (135-145)
[2022-05-12 21:07] VITALS: BP 117/67; PULSE 76; RESP 17; TEMP 36.7; O2SAT 99
[2022-05-13] MEDS: Butalb/Acetamin/Caff 50/325/40 TABLET 1 TAB PO (00:28)
[2022-05-13] MEDS: Ondansetron ODT 4 MG TAB.RAPDIS TRANSLINGU (00:28)
--- NOTE | 2022-05-13 00:37 | ED_ITS ---
HPI - Headache General Chief Complaint: Nausea/Vomiting/Diarrhea Stated Complaint: Vomiting, PCP referred Time Seen by Provider: 05/12/22 23:51 Source: patient Mode of arrival: ambulatory Limitations: no limitations History of Present Illness HPI Narrative: Patient presents emergency department for evaluation of concern for headache with vomiting while on anticoagulants. She states that she presented to her doctor's office today reporting episodes of vomiting since early this morning. She had COVID-19 and influenza testing which was negative, had a urinalysis performed and testing which she also reports was negative. Her PCP tried to give her oral ondansetron but she was unable to keep this down. She then reported that she was experiencing a posterior headache that was brought on during episodes of vomiting, however when not vomiting was not experiencing headache. She did have some light sensitivity during these episodes as well however and reports a distant history of migraines but has not required medications in quite some time. PCP was concerned about possible intracranial bleeding given that she is on Xarelto for DVT. Denies fevers, chills, dizziness, lightheadedness, neck pain, neck stiffness, chest pain, palpitations, shortness of breath, difficulty breathing, numbness or tingling of the extremities, unsteady gait, weakness. Denies recent fall, head injury. Related Data Home Medications Medication Instructions Recorded Confirmed azithromycin 250 mg tablet mg PO 07/08/20 benzonatate 100 mg capsule 100 mg PO Q8H PRN cough 07/08/20 03/16/22 ykewglonlm-dzxbndzhbnvmg-jzeealtp 1 tab PO TID PRN migraine 07/08/20 03/16/22 50 mg-325 mg-40 mg tablet hydrochlorothiazide 12.5 mg capsule 12.5 mg PO DAILY 07/08/20 03/16/22 sertraline 50 mg tablet 50 mg PO DAILY 07/08/20 03/16/22 tramadol 50 mg tablet 50 mg PO Q12H PRN Pain, Severe 07/08/20 03/16/22 Previous Rx's Medication Instructions Recorded ibuprofen 600 mg tablet 600 mg PO Q6H PRN pain #20 tabs 02/06/22 apixaban 5 mg (74 tabs) tablets in 5 mg PO BID #74 ea 03/06/22 a dose pack ([employer] DVT-PE Treat 30D Start) oxycodone 5 mg capsule 5 mg PO BID PRN pain #8 caps 03/06/22 ferrous sulfate 325 mg (65 mg 325 mg PO BID #60 tabs 03/16/22 iron) tablet (iron) Allergies Allergy/AdvReac Type Severity Reaction Status Date / Time acetaminophen [ACETAMINOPHEN] Allergy Severe FATTY LIVER Verified 03/16/22 16:10 sodium [SODIUM] Allergy Unknown UNKNOWN Verified 03/16/22 16:10 sodium chloride Allergy Unknown Swelling Verified 03/16/22 16:10 Motrin Allergy Unknown Swelling Uncoded 03/16/22 16:10 Review of Systems Review of Systems: Constitutional: No weight loss. No fever. No chills. No weakness. No fatigue. Skin: No rash. No itching. Cardiovascular: No chest pain. No chest pressure. No palpitations. No pedal edema. Respiratory: No shortness of breath. No cough. No sputum production. Gastrointestinal: No anorexia. Positive nausea. Positive vomiting. No diarrhea. No abdominal pain. No blood in stool. Genitourinary: No burning micturition. No urinary frequency. No incontinence. Neurologic: Positive headache. No dizziness. No pre-syncope/ syncope. No unilateral weakness. No ataxia. No numbness. No tingling. No change in bowel or bladder control. Musculoskeletal: No muscle pain. No back pain. No joint pain. No stiffness. Hematologic: No bleeding. No bruising. Yes all other systems are reviewed and are negative PMFSH Past Medical History Attestation statement: The following information was validated with the patient. Source: old records reviewed Medical History Endometriosis Surgical History Tubal ligation status Family History Family History Mother Arthritis Maternal Grandmother Arthritis Mother Epilepsia Paternal Grandmother Cancer Social History Social History Household Members: Children Housing: Apartment Alcohol intake: never Patient Tobacco Use Status: Current everyday Tobacco user Tobacco use type: Cigarette Advance Directives: No service: No Current occupational status: employed Physical Exam Vital Signs: Vital Signs: Last Vital Signs Temp 98.0 F 05/12/22 21:07 Pulse 76 05/12/22 21:07 Resp 17 05/12/22 21:07 BP 117/67 05/12/22 21:07 Pulse Ox 99 05/12/22 21:07 O2 Del Method 05/12/22 21:07 BMI result Body Mass Index 24.5 Appearance: Alert.?Oriented to person, place and time. No acute distress.?Normal affect. Eyes: Pupils equal, round and reactive to light.? ENT: Pharynx normal.?? Neck: Normal inspection.? Neck supple.?? CVS: Heart sounds normal. Normal heart rate and rhythm.? Pulses normal.?? Respiratory: No respiratory distress.? Lung sounds clear to auscultation bi laterally?? Abdomen: Soft and non-tender. Normoactive bowel sounds. ? Skin: Skin warm and dry.? Normal skin color.? Extremities: No lower extremity edema.? Neuro: Moves all extremities spontaneously. Sensation intact bilaterally. CN II- XII intact. No focal neuro deficits. Ambulates with normal steady gait. NIH Stroke Scale Time: 00:00 Level of Consciousness: Alert Level of Consciousness Questions: Answers both questions correctly Level of Consciousness Commands: Performs both tasks correctly Best Gaze: Normal Visual: No visual loss Facial Palsy: Normal Motor Arm (Right): No drift Motor Arm (Left): No drift Motor Leg (Right): No drift Motor Leg (Left): No drift Limb Ataxia: Absent Sensory: Normal Best Language: No aphasia Dysarthia: Normal Extinction and Inattention: No abnormality Score: 0 Course Course Course Narrative: Patient is a 36-year-old female with a past medical history of migraine, hypertension, endometriosis, DVT presenting to emergency department for evaluation of vomiting with headache referred from PCP for rule out intracranial bleeding. She is currently on Xarelto for DVT. She is overall well-appearing. No focal neurological deficits upon examination. Review of labs obtained from triage reveals an overall unremarkable CBC no anemia or thrombocytopenia. BMP is overall unremarkable. CT of the head reveals no acute intracranial pathology . Will trial sublingual ondansetron and Fioricet at this time, disposition pending results. Reevaluation(s) Reevaluation #1: Patient reports improvement in headache, completely resolved at this time. Has not had any further episodes of vomiting while in the emergency department. Requesting to be discharged at this time, stating she will follow up with her primary care provider she continues to have persistent vomiting. At this time she states that she thinks it may be secondary to something that she ate as she did go out to dinner the night previous. She is tolerating oral intake. Stable for discharge home. Reviewed worrisome signs symptoms that she should return back to the emergency department for. All questions were answered, patient was discharged home in stable condition. Time: 00:45 [facility] - Headache Medical Records Attestation: I reviewed the patient's medical records. Lab Data Attestation: I reviewed the patient's lab results. Result diagrams: 05/12/22 19:16 05/12/22 19:16 Labs: Lab Results 05/12/22 05/12/22 Range/Units 19:16 19:16 WBC 8.8 (4.8-10.8) X10*3/uL RBC 5.11 D (4.20-5.50) X10*6/uL Hgb 12.8 (12.0-16.0) g/dl Hct 39.7 D (37.0-47.0) % MCV 77.7 L (80.0-98.0) fL MCH 25.0 L (27.0-33.0) pg MCHC 32.2 (31.0-35.0) g/dl RDW 14.6 (11.0-16.0) % Plt Count 321 D (160-400) X10*3/uL MPV 10.4 (9.4-12.3) fL Absolute Nucleated RBC 0.000 (0.0-0.012) X10*3/uL Nucleated RBC % (auto) 0.0 (0.0-0.2) /100WBC Sodium 143 (135-145) mmol/L Potassium 3.2 L (3.3-5.1) mmol/L Chloride 96 (96-108) mmol/L Carbon Dioxide 33 H (22-29) mmol/L Anion Gap 17 (12-20) BUN 16 D (9-16) mg/dL Creatinine 0.78 (0.5-1.4) mg/dL Estim Creat Clear Calc 102.5 Estimated GFR > 60 Random Glucose 112 (60-115) mg/dL Calcium 9.6 D (8.4-10.2) mg/dL Imaging Data CT scan - head: Radiologist's impression: CT/CT head/brain wo IV con IMPRESSION: No acute intracranial pathology. ? Discharge Plan Discharge Clinical Impression: Headache, Vomiting Patient Disposition: Home, Self-Care Additional Instructions: As discussed, the CT of your head was normal there is no evidence of bleeding. Use ondansetron as prescribed by your doctor to help with nausea. You can take Tylenol 500 mg, 2 tablets (1,000mg) every 4-6 hours as needed for pain, but not to exceed 3 doses daily (3,000mg).? Return to the emergency department any new or worsening symptoms or concerns. Follow up with her primary care provider Prescriptions: No Action ferrous sulfate [iron] 325 mg (65 mg iron) Tablet 325 mg PO BID Qty: 60 3RF ibuprofen 600 mg tablet 600 mg PO Q6H PRN (Reason: pain) Qty: 20 0RF Eliquis DVT-PE Treat 30D Start 5 mg (74 tabs) tablets,dose pack 5 mg PO BID Qty: 74 0RF oxycodone 5 mg capsule 5 mg PO BID PRN (Reason: pain) Qty: 8 0RF Rx Instructions: Partial Fill upon patient request. tramadol 50 mg tablet 50 mg PO Q12H PRN (Reason: Pain, Severe) rtzjbfigae-gojjhvylfnsmq-bwsq 50-325-40 mg tablet 1 tab PO TID PRN (Reason: migraine) sertraline 50 mg tablet 50 mg PO DAILY hydrochlorothiazide 12.5 mg capsule 12.5 mg PO DAILY benzonatate 100 mg capsule 100 mg PO Q8H PRN (Reason: cough) azithromycin 250 mg tablet PO Interventions: ED Discharge Assessment Last Done: 05/13/22 00:49 Discharge Date/Time: 05/13/22 00:50
== END 2022-05-13 00:50 | disposition home or self-care (01) ==
PROVIDERS: Emergency Provider Internal Medicine; PCP Internal Medicine
DX: R11.2 Nausea with vomiting, unspecified (principal); R51.9 Headache, unspecified; R19.7 Diarrhea, unspecified; F17.210 Nicotine dependence, cigarettes, uncomplicated; Z71.6 Tobacco abuse counseling; Z79.899 Other long term (current) drug therapy
CPT/HCPCS: 36415; 80048; 85027; 99283

== ENCOUNTER 2022-06-09 12:09 | Outpatient (REF) | payer MEDICAID, SELFPAY ==
--- NOTE | ~2022-06-09 | US_ITS ---
EXAMINATION: US VENOUS ULTRASOUND WITH DOPPLER LOWER EXTREMITY, BILATERAL CLINICAL INFORMATION: Bilateral lower extremity swelling and redness COMPARISON: 05/09/2022 TECHNIQUE: Ultrasound of the deep veins is performed from the hip to the calf with compression sonography and color and pulse Doppler assessment. Spectral analysis with color-flow imaging is performed. FINDINGS: RIGHT: There is normal venous compression and respiratory variation and augmented flow. The visualized common femoral vein, superficial femoral vein, profunda femoral vein, popliteal vein, and the trifurcation region shows no evidence of deep venous thrombosis. There is no significant popliteal fossa cyst. LEFT: There is normal venous compression and respiratory variation and augmented flow. The visualized common femoral vein, superficial femoral vein, profunda femoral vein, popliteal vein, and the trifurcation region shows no evidence of deep venous thrombosis. There is no significant popliteal fossa cyst. If the patient's symptoms persist, followup ultrasound in 5 days 7 days might be of value to exclude proximal propagation from a non-visualized calf vein. US/US venous duplex LE BI IMPRESSION: No DVT demonstrated in the bilateral lower extremities.
== END 2022-06-09 12:10 | disposition home or self-care (01) ==
LOC: HO.US 12:09
PROVIDERS: PCP Internal Medicine; Visit Provider Internal Medicine
DX: I82.401 Acute embolism and thrombosis of unspecified deep veins of right lower extremity (principal); R60.0 Localized edema
CPT/HCPCS: 93970

== ENCOUNTER 2022-06-22 11:47 | Outpatient (REF) | payer MEDICAID, SELFPAY ==
--- NOTE | ~2022-06-22 | US_ITS ---
EXAMINATION: US PELVIS CLINICAL INFORMATION: Pelvic pain. COMPARISON: Pelvic ultrasound 04/16/2020. TECHNIQUE: Ultrasound of the pelvis is performed using both transabdominal and transvaginal transducers along with Doppler. Transvaginal imaging is performed due to inadequate visualization transabdominally. FINDINGS: UTERUS: The uterus is anteverted and measures 9.6 x 5.6 x 6.6 cm. The double wall endometrial thickness is 0.3 mm. The uterus is smooth in contour and has normal myometrial echogenicity. No visible fibroid. ADNEXA: Both ovaries are visualized. There is normal color flow to the adnexa. There is no ovarian torsion. There is no pelvic ascites or fluid collection. There is a tubular cystic region present in the region of the right adnexa which could represent a hydrosalpinx. Right ovary measures 3.4 x 3.2 x 2.2 cm for a volume of 8.6 mL which includes some cysts, the largest measuring 1.5 x 1.3 x 1.5 cm. Left ovary measures 3.6 x 2.5 x 1.4 cm for a volume of 6.6 mL and appears normal. US/US pelvic and transvaginal IMPRESSION: 1. Question of right-sided hydrosalpinx. 2. Benign-appearing right ovarian cyst.
== END 2022-06-22 11:48 | disposition home or self-care (01) ==
LOC: HO.US 11:47
PROVIDERS: PCP Internal Medicine; Visit Provider Internal Medicine
DX: N93.8 Other specified abnormal uterine and vaginal bleeding (principal); R10.2 Pelvic and perineal pain
CPT/HCPCS: 76830; 76856

== ENCOUNTER 2022-06-27 17:24 | Emergency (ER) | payer MEDICAID, SELFPAY ==
--- NOTE | ~2022-06-27 | US_ITS ---
EXAMINATION: US VENOUS ULTRASOUND WITH DOPPLER LOWER EXTREMITY, RIGHT CLINICAL INFORMATION: Right leg pain and swelling COMPARISON: Bilateral lower extremity venous ultrasound 06/09/2022 TECHNIQUE: Ultrasound of the deep veins is performed from the hip to the calf with compression sonography and color and pulse Doppler assessment. Spectral analysis with color-flow imaging is performed. FINDINGS: There is normal venous compression and respiratory variation and augmented flow. The visualized common femoral vein, superficial femoral vein, profunda femoral vein, popliteal vein, and the trifurcation region shows no evidence of deep venous thrombosis. There is a 4.3 x 1.1 x 4.6 cm anechoic collection of fluid at the anterior knee consistent with suprapatellar joint effusion. If the patient's symptoms persist, followup ultrasound in 5 days 7 days might be of value to exclude proximal propagation from a non-visualized calf vein. US/US venous duplex LE RT IMPRESSION: 1. No DVT demonstrated in the right lower extremity. 2. Suprapatellar knee joint effusion.
--- NOTE | ~2022-06-27 | XR_ITS ---
EXAMINATION: XR KNEE, RIGHT CLINICAL INFORMATION: Pain and swelling COMPARISON: None TECHNIQUE: Four views of the right knee. FINDINGS: Bones and soft tissues are normal. No fracture or joint effusion. Alignment is anatomic. Joint spaces are well maintained. No abnormal soft tissue calcification. XR/XR knee RT 4V IMPRESSION: Normal right knee.
[2022-06-27 17:25] VITALS: BP 117/64; PULSE 91; RESP 18; TEMP 36.3; O2SAT 100; BMI 25.8
[2022-06-27 17:50] LABS: MANUAL DIFF FLAG NO
[2022-06-27 17:51] LABS: Basophils Percent Auto 0.4 % (0-2); Eosinophils Percent Auto 0.2 % (0-4); Hematocrit 34.4 % (37.0-47.0); Hemoglobin 10.9 g/dl (12.0-16.0); Imm Gran Abs Auto 0.01 X10*3/uL (0.00-0.03); Imm Gran Pct Auto 0.2 % (0.0-0.4); Lymphocytes Absolute Auto 1.7 X10*3/uL (1.2-4.9); Lymphocytes Percent Auto 29.9 % (20-40); Mean Corpuscular HGB Conc 31.7 g/dl (31.0-35.0); Mean Corpuscular Hemoglobin 25.2 pg (27.0-33.0); Mean Corpuscular Volume 79.6 fL (80.0-98.0); Mean Platelet Volume 10.5 fL (9.4-12.3); Monocytes Absolute Auto 0.6 X10*3/uL (0.1-1.2); Neutrophils Absolute Auto 3.3 x10*3/uL (2.0-8.3); Neutrophils Percent Auto 59.3 % (45-73); Platelet Count 222 X10*3/uL (160-400); Red Blood Count 4.32 X10*6/uL (4.20-5.50); Red Cell Distribution Width 15.6 % (11.0-16.0); White Blood Count 5.5 X10*3/uL (4.8-10.8)
[2022-06-27 17:56] LABS: INTERNATIONAL NORM RATIO 1.1 (0.9-1.1); Prothrombin Time 12.4 SEC (10.0-13.1)
[2022-06-27 18:11] LABS: Anion Gap 13 (12-20); Blood Urea Nitrogen 9 mg/dL (9-16); Carbon Dioxide 28 mmol/L (22-29); Chloride 102 mmol/L (96-108); Creatinine Clr Calc Pharmacy 121.3; Estimated Glomerular Filt Rate > 60; Glucose Random 96 mg/dL (60-115); Sodium 140 mmol/L (135-145)
[2022-06-27 20:43] VITALS: BP 112/69; PULSE 82; RESP 18; TEMP 36.9; O2SAT 100
--- NOTE | 2022-06-27 21:31 | ED.GENADULT ---
HPI - General Adult General Chief complaint: General Medical Stated complaint: lump on knee, right leg swollen Time Seen by Provider: 06/27/22 21:07 Source: patient Mode of arrival: ambulatory History of Present Illness HPI narrative: 36-year-old female who works for [employer] and has sustained a knee injury for which she is currently unemployed and receiving care under orthopedic service and there are plans for her to attend physical therapy as well as obtain an MRI this Tuesday. Patient comes in with complaint of right knee pain and swelling. She denies any fevers or chills. Related Data Home Medications Medication Instructions Recorded Confirmed benzonatate 100 mg capsule 100 mg PO Q8H PRN cough 07/08/20 06/09/22 jjikzlprxm-swlloqilouawk-rihsyasx 1 tab PO TID PRN migraine 07/08/20 06/09/22 50 mg-325 mg-40 mg tablet hydrochlorothiazide 12.5 mg capsule 12.5 mg PO DAILY 07/08/20 06/09/22 sertraline 50 mg tablet 50 mg PO DAILY 07/08/20 06/09/22 tramadol 50 mg tablet 50 mg PO Q12H PRN Pain, Severe 07/08/20 06/09/22 rivaroxaban 20 mg tablet (Xarelto) 1 tab PO QPM 06/09/22 06/09/22 Previous Rx's Medication Instructions Recorded ibuprofen 600 mg tablet 600 mg PO Q6H PRN pain #20 tabs 02/06/22 oxycodone 5 mg capsule 5 mg PO BID PRN pain #8 caps 03/06/22 ferrous sulfate 325 mg (65 mg 325 mg PO BID #60 tabs 03/16/22 iron) tablet (iron) Allergies Allergy/AdvReac Type Severity Reaction Status Date / Time acetaminophen [ACETAMINOPHEN] Allergy Severe FATTY LIVER Verified 03/16/22 16:10 sodium [SODIUM] Allergy Unknown UNKNOWN Verified 03/16/22 16:10 sodium chloride Allergy Unknown Swelling Verified 03/16/22 16:10 Motrin Allergy Unknown Swelling Uncoded 03/16/22 16:10 Review of Systems Review of Systems: Pertinent positives and negatives as stated in HPI 10 point review of systems is otherwise negative. PMFSH Past Medical History Source: nursing notes reviewed Medical History Endometriosis Surgical History Tubal ligation status Family History Family History Mother Arthritis Maternal Grandmother Arthritis Mother Epilepsia Paternal Grandmother Cancer Social History Social History Household Members: Children Housing: Apartment Alcohol intake: never Patient Tobacco Use Status: Current everyday Tobacco user Tobacco use type: Cigarette Advance Directives: No Advance Directives Information Provided: No service: No Current occupational status: employed Physical Exam ED Vital Signs: Vital Signs - 24 hr 06/27/22 17:25 06/27/22 20:43 Temperature 97.4 F 98.5 F Pulse Rate 91 82 Respiratory Rate 18 18 Blood Pressure 117/64 112/69 Pulse Oximetry 100 100 Oxygen Delivery Method Room Air Room Air BMI result Body Mass Index 25.8 VITAL SIGNS: Reviewed. GENERAL: Well developed, well nourished, in no acute distress. HEAD: Normocephalic/atraumatic EYES: PERRLA, EOMI EARS: Ext canals without abnormality OROPHARYNX: no oral lesions noted LUNGS: Normal breath sounds. No adventitious sounds or accessory muscle use. SpO2<100> CARDIOVASCULAR: Regular rate and rhythm without noted murmurs ABDOMEN: Soft, non-tender, non-distended with bowel sounds. MUSCULOSKELETAL: No tenderness, deformities, or effusions noted on gross inspection. EXTREMITIES: No cyanosis, clubbing or edema; RIGHT KNEE: Mild swelling without erythema/induration and very small amount edema noted at the suprapatellar SKIN: Inspection of the skin reveals no rashes NEUROLOGIC: Alert and oriented x 4. Strength and sensation to light touch were grossly intact x 4. Course Course Course Narrative: 36-year-old female with history and clinical presentation after review of all investigations negative for acute findings and these were all discussed with patient at bedside. Placed in Deangelo wrap to the right knee and also provided crutches as well as a 1 time dose of tramadol. Medical Decision Making Lab Data Result diagrams: 06/27/22 17:45 06/27/22 17:45 Labs: Lab Results 06/27/22 06/27/22 06/27/22 Range/Units 17:45 17:45 17:45 WBC 5.5 (4.8-10.8) X10*3/uL RBC 4.32 (4.20-5.50) X10*6/uL Hgb 10.9 L (12.0-16.0) g/dl Hct 34.4 L (37.0-47.0) % MCV 79.6 L (80.0-98.0) fL MCH 25.2 L (27.0-33.0) pg MCHC 31.7 (31.0-35.0) g/dl RDW 15.6 (11.0-16.0) % Plt Count 222 D (160-400) X10*3/uL MPV 10.5 (9.4-12.3) fL Immature Gran % (Auto) 0.2 (0.0-0.4) % Neut % (Auto) 59.3 (45-73) % Lymph % (Auto) 29.9 (20-40) % [place] % (Auto) 10.0 (2-11) % Eos % (Auto) 0.2 (0-4) % Baso % (Auto) 0.4 (0-2) % Lymph # (Auto) 1.7 (1.2-4.9) X10*3/uL [place] # (Auto) 0.6 (0.1-1.2) X10*3/uL Eos # (Auto) 0.0 (0.0-0.4) X10*3/uL Baso # (Auto) 0.0 (0.0-0.2) X10*3/uL Abs Immat Gran (auto) 0.01 (0.00-0.03) X10*3/uL Absolute Neuts (auto) 3.3 (2.0-8.3) x10*3/uL Absolute Nucleated RBC 0.000 (0.0-0.012) X10*3/uL Nucleated RBC % (auto) 0.0 (0.0-0.2) /100WBC PT 12.4 (10.0-13.1) SEC INR 1.1 (0.9-1.1) Sodium 140 (135-145) mmol/L Potassium 3.0 L (3.3-5.1) mmol/L Chloride 102 (96-108) mmol/L Carbon Dioxide 28 (22-29) mmol/L Anion Gap 13 (12-20) BUN 9 (9-16) mg/dL Creatinine 0.69 (0.5-1.4) mg/dL Estim Creat Clear Calc 121.3 Estimated GFR > 60 Random Glucose 96 (60-115) mg/dL Calcium 9.0 D (8.4-10.2) mg/dL Discharge Plan Discharge Clinical Impression: Knee pain, right Patient Disposition: Home, Self-Care Instructions: Knee Pain (ED), Crutch Instructions (ED) Additional Instructions: 1. Resume all home medications as prescribed. 2. Keep the Deangelo wrap on your knee at all times while walking. All use crutches and extreme situations. 3. Keep all of your appointments as scheduled. Return to the ER for worsening symptoms. Prescriptions: No Action ferrous sulfate [iron] 325 mg (65 mg iron) Tablet 325 mg PO BID Qty: 60 3RF Xarelto 20 mg tablet 1 tab PO QPM ibuprofen 600 mg tablet 600 mg PO Q6H PRN (Reason: pain) Qty: 20 0RF oxycodone 5 mg capsule 5 mg PO BID PRN (Reason: pain) Qty: 8 0RF Rx Instructions: Partial Fill upon patient request. tramadol 50 mg tablet 50 mg PO Q12H PRN (Reason: Pain, Severe) swsbmbtvic-hqjswjciqoikr-xidh 50-325-40 mg tablet 1 tab PO TID PRN (Reason: migraine) sertraline 50 mg tablet 50 mg PO DAILY hydrochlorothiazide 12.5 mg capsule 12.5 mg PO DAILY benzonatate 100 mg capsule 100 mg PO Q8H PRN (Reason: cough) Referrals: Kelsey Huggins MD [Primary Care Provider] -
[2022-06-27] MEDS: traMADoL HCL 50 MG TABLET 25 MG PO (21:50)
== END 2022-06-27 21:59 | disposition home or self-care (01) ==
PROVIDERS: Emergency Provider Student in an Organized Health Care Education/Training Program; PCP Internal Medicine
DX: M25.561 Pain in right knee (principal); R60.0 Localized edema; Z79.899 Other long term (current) drug therapy
CPT/HCPCS: 36415; 73564; 80048; 85025; 85610; 93971; 99283

== ENCOUNTER 2022-07-06 14:34 | Outpatient (REF) | payer MEDICAID, SELFPAY ==
--- NOTE | ~2022-07-06 | MR_ITS ---
EXAMINATION: MR KNEE WITHOUT CONTRAST, RIGHT CLINICAL INFORMATION: Right knee pain COMPARISON: None TECHNIQUE: MRI of the knee without contrast was performed using routine sequences on a high-field scanner. FINDINGS: MENISCI: Medial Meniscus: Intact Lateral Meniscus: Intact LIGAMENTS: Cruciate: Intact Collateral: Intact EXTENSOR MECHANISM: Intact ARTICULAR CARTILAGE/BONE: Patellofemoral Compartment: Normal Medial Compartment: Normal Lateral Compartment: Normal JOINT FLUID AND BURSAE: Moderate joint effusion. MR/MR knee RT wo con IMPRESSION: 1. Moderate joint effusion. 2. No internal derangement.
== END 2022-07-06 14:35 | disposition home or self-care (01) ==
LOC: HO.MRI 14:34
PROVIDERS: PCP Internal Medicine; Visit Provider Internal Medicine
DX: M25.561 Pain in right knee (principal)
CPT/HCPCS: 73721

== ENCOUNTER 2023-08-29 01:42 | Inpatient (IN) | payer MEDICAID, SELFPAY ==
[2023-08-29] VITALS (10 sets, daily range): BP systolic 93–124; BP diastolic 41–86; PULSE 16–64; RESP 16–20; TEMP 36.8–37; O2SAT 95–100; BMI 24.2
--- NOTE | ~2023-08-29 | US_ITS ---
EXAMINATION: US PELVIS CLINICAL INFORMATION: Right lower quadrant pain with question of ovarian torsion COMPARISON: CT abdomen pelvis 08/29/2023, ultrasound pelvis 06/22/2022 TECHNIQUE: Ultrasound of the pelvis is performed using both transabdominal and transvaginal transducers along with Doppler. Transvaginal imaging is performed due to inadequate visualization transabdominally. FINDINGS: Uterus: The uterus is anteverted and measures 11.6 x 5.2 x 7.5 cm. The double wall endometrial thickness is 12 mm. An echogenic endometrial polyp is seen measuring 10 x 7 x 7 mm. The uterus is smooth in contour and has normal myometrial echogenicity. No visible fibroid. Small nabothian cyst is present in the cervix. Adnexa: Both ovaries are visualized. There is normal color flow to the adnexa. There is no ovarian torsion. There is a small fluid collection in the right lower. Right ovary measures 4.6 x 1.5 x 1.9 cm for a volume of 6.9 mL. There is a tubular structure medial to the ovary measuring 2.1 x 1.0 x 1.0 cm which can also be seen on the CT scan (3:70) could represent a cyst versus a small area of hydrosalpinx. Left ovary measures 3.5 x 2.6 x 3.0 cm for a volume of 14.3 mL. Appendix: Completely visualized appendix. Location: Right lower quadrant. Fluid-filled: No. Compressible: Partially Maximum Diameter With Compression (Outer Wall To Outer Wall): 0.6 cm (normal less 0.7 cm). Appendicolith: No. Wall: Hyperemia: No. Thickening (>0.2 cm): No. Loss of Mural Stratification: No. Free Fluid: Tiny bit in the right lower quadrant Increased Echogenicity Of Periappendiceal Fat: No. US/US pelvic and transvaginal IMPRESSION: 1. No evidence of ovarian torsion. 2. The appendix is relatively unremarkable, upper limits of normal in size, without inflammatory change. Recommend correlation with clinical exam as well as CRP, WBC, etc. 3. Incidental note made of a 10 mm endometrial polyp. 4. Tubular structure medial to the right ovary could represent a small area of hydrosalpinx versus a small cyst.
--- NOTE | ~2023-08-29 | CT_ITS ---
EXAMINATION: CT ABDOMEN AND PELVIS WITHOUT CONTRAST CLINICAL INFORMATION: Right flank pain. COMPARISON: 11/13/2016. TECHNIQUE: Multidetector volumetric imaging was performed from the superior aspect of the liver through the pubic symphysis. Sagittal and coronal reformatted images were obtained on the technologist's workstation. This CT examination was performed using dose optimization techniques as appropriate, variously including the following: *Automated exposure control *Adjustment of mA and/or kV according to patient size (this includes techniques or standardized protocols for targeted exams where dose is matched to indication/reason for exam; i.e. extremities or head) *Use of iterative reconstruction technique DLP: 479 mGy-cm FINDINGS: LUNG BASES: The visualized lung bases are unremarkable. LIVER, GALLBLADDER, AND BILIARY TREE: The liver is normal in size, shape, and attenuation. No focal hepatic lesion or biliary ductal dilatation is present. There has been a prior cholecystectomy. PANCREAS: Unremarkable. SPLEEN: Unremarkable. ADRENAL GLANDS: Unremarkable. KIDNEYS AND URETERS: The kidneys are normal in size, shape, and attenuation. No hydronephrosis, hydroureter, or calculi seen. No perinephric stranding. BLADDER: Unremarkable. GASTROINTESTINAL TRACT: The small and large bowel are unremarkable. The appendix is borderline in size measuring 6 to 7 mm. ABDOMINAL WALL: No significant hernia is appreciated. LYMPH NODES: Normal. VASCULAR: Unremarkable. PELVIC VISCERA: Unremarkable. OSSEOUS STRUCTURES: Unremarkable. CT/CT abdomen pelvis wo IV con IMPRESSION: 1. No evidence of renal calculi or hydronephrosis. 2. The appendix is borderline in size measuring 6 to 7 mm in diameter. No surrounding inflammatory changes are seen to suggest acute appendicitis. Correlation and follow-up suggested. Fleischner guidelines were followed.
--- NOTE | 2023-08-29 02:04 | ED.NAVMDI ---
HPI - Nausea/Vomiting/Diarrhea General Chief complaint: Abdominal Pain Stated complaint: vomiting, abd pain Time Seen by Provider: 08/29/23 01:52 Source: patient Mode of arrival: ambulatory History of Present Illness HPI Narrative: 38-year-old female presents with acute onset right flank pain with radiation into the anterior aspect associated with nausea and vomiting. Patient is status post cholecystectomy and LMP is 08/15/2023. Related Data Home Medications Medication Instructions Recorded Confirmed benzonatate 100 mg capsule 100 mg PO Q8H PRN cough 07/08/20 06/09/22 [id number]-icvbozvpemgzi-wbwncjjd 1 tab PO TID PRN migraine 07/08/20 06/09/22 50 mg-325 mg-40 mg tablet hydrochlorothiazide 12.5 mg capsule 12.5 mg PO DAILY 07/08/20 06/09/22 sertraline 50 mg tablet 50 mg PO DAILY 07/08/20 06/09/22 tramadol 50 mg tablet 50 mg PO Q12H PRN Pain, Severe 07/08/20 06/09/22 rivaroxaban 20 mg tablet (Xarelto) 1 tab PO QPM 06/09/22 06/09/22 Previous Rx's Medication Instructions Recorded ibuprofen 600 mg tablet 600 mg PO Q6H PRN pain #20 tabs 02/06/22 oxycodone 5 mg capsule 5 mg PO BID PRN pain #8 caps 03/06/22 ferrous sulfate 325 mg (65 mg 325 mg PO BID #60 tabs 03/16/22 iron) tablet (iron) Allergies Allergy/AdvReac Type Severity Reaction Status Date / Time Motrin Allergy Unknown Swelling Uncoded 03/16/22 16:10 Review of Systems Review of Systems: Pertinent positives and negatives as stated in HPI [facility] Past Medical History Source: nursing notes reviewed Onset Date is defined in the Problem List Problems that require an onset date and time if occurred within 24 hrs of arrival to the ED Aortic Dissection and Rupture; Neurologic impairment; Cardiopulmonary Arrest; Endotracheal Intubation; Insertion or Replacement of Mechanical Circulatory Assist Device Medical History Endometriosis Surgical History Tubal ligation status Family History Family History Mother Arthritis Maternal Grandmother Arthritis Mother Epilepsia Paternal Grandmother Cancer Social History Social History Household Members: Children Housing: Apartment Alcohol intake: never Patient Tobacco Use Status: Current everyday Tobacco user Tobacco use type: Cigarette Advance Directives: No Advance Directives Information Provided: Yes service: No Current occupational status: employed Physical Exam Vital Signs: Vital Signs: Last Vital Signs Temp 98.6 F 08/29/23 06:07 Pulse 50 08/29/23 06:07 Resp 17 08/29/23 06:07 BP 115/68 08/29/23 06:07 Pulse Ox 95 08/29/23 06:07 O2 Del Method Room Air 08/29/23 06:07 BMI result Body Mass Index 24.2 VITAL SIGNS: Reviewed. GENERAL: Well developed, well nourished, in no acute distress. HEAD: Normocephalic/atraumatic EYES: PERRLA, EOMI EARS: Ext canals without abnormality LUNGS: Normal breath sounds. No adventitious sounds or accessory muscle use. SpO2<100> CARDIOVASCULAR: Regular rate and rhythm without noted murmurs ABDOMEN: Soft, right abdominal pain on deep palpation, non-distended with bowel sounds. MUSCULOSKELETAL: No tenderness, deformities, or effusions noted on gross inspection. EXTREMITIES: No cyanosis, clubbing or edema. SKIN: Inspection of the skin reveals no rashes NEUROLOGIC: Alert and oriented x 4. Strength and sensation to light touch were grossly intact x 4. Medications Administered Generic Name Dose Route Start Last Admin Trade Name Freq PRN Reason Stop Dose Admin Sodium Chloride 1,000 mls @ 999 mls/hr 08/29/23 05:15 08/29/23 06:04 Ns IV 08/29/23 06:15 999 mls/hr .Q1H1M KASEY Administration Discontinued Medications Generic Name Dose Route Start Last Admin Trade Name Freq PRN Reason Stop Dose Admin Fentanyl 25 mcg 08/29/23 02:17 08/29/23 02:28 Fentanyl Citrate/Pf 100 Mcg/2 Ml Vial IVPUSH 08/29/23 02:18 25 mcg ONCE ONE Administration Protocol Fentanyl 25 mcg 08/29/23 03:11 08/29/23 03:20 Fentanyl Citrate/Pf 100 Mcg/2 Ml Vial IVPUSH 08/29/23 03:12 25 mcg ONCE ONE Administration Protocol Hydromorphone HCl 0.25 mg 08/29/23 05:47 08/29/23 05:53 Hydromorphone Hcl 0.5 Mg/0.5 Ml Syringe IVPUSH 08/29/23 05:48 0.25 mg ONCE ONE Administration Protocol Sodium Chloride 1,000 mls @ 999 mls/hr 08/29/23 02:15 08/29/23 03:31 Ns IV 08/29/23 03:15 Infused .Q1H1M KASEY Infusion Piperacillin Sod/Tazobactam 50 mls @ 100 mls/hr 08/29/23 05:00 08/29/23 06:09 Sod 3.375 gm/ Sodium Chloride IV 08/29/23 05:29 Infused ONCE ONE Infusion Ondansetron HCl 4 mg 08/29/23 01:50 08/29/23 02:23 Ondansetron Hcl 4 Mg/2 Ml Vial IVPUSH 08/29/23 01:51 4 mg ONCE ONE Administration Medical Decision Making Medical Decision Making MDM Narrative: 38-year-old female with history and clinical presentation, DDX: Renal colic, pyelonephritis but doubt appendicitis. 0455: I suspect infection, lactic acid/blood cultures/antibiotics have been ordered. I reviewed all investigations and hematologic indices demonstrate a mild leukocytosis with left shift but otherwise no anemia or thrombocytopenia. Chemistries demonstrate a mild hypokalemia but otherwise no JOCELYNN and no liver enzyme derangements, beta hCG is undetectable. Viral testing is negative for COVID. CT scan describes an upper limit normal for appendix without resulting stranding and on re-evaluation patient is very tender in the right lower quadrant and pain is persisting despite receiving pain medication. 0504: Reached out to General surgery, Dr. Ureña, who recommends pelvic ultrasound with Doppler to rule out torsion/ovarian cyst despite providing additional information such as no evidence on CT scan of free fluid or findings of the adnexa to otherwise suggest ovarian cyst or torsion. Patient continues to receive pain medication and is awaiting ultrasound evaluation, Dr. Ureña to see patient at bedside. Signed out to Dr Collazo - f/u US and decision by Dr Ureña for admission Differential Diagnosis Differential Diagnoses: The differential diagnosis associated with the presentation includes Please see the discussion above Admission/Observation Consideration of admission/observation: Escalation of care including admission/observation considered Please see the discussion Lab Data 08/29/23 02:09 08/29/23 02:09 Labs: Lab Results 08/29/23 08/29/23 Range/Units 02:09 05:13 WBC 11.3 H (4.8-10.8) X10*3/uL RBC 4.29 (4.20-5.50) X10*6/uL Hgb 12.3 (12.0-16.0) g/dl Hct 36.8 L (37.0-47.0) % MCV 85.8 (80.0-98.0) fL MCH 28.7 (27.0-33.0) pg MCHC 33.4 (31.0-35.0) g/dl RDW 13.2 (11.0-16.0) % Plt Count 215 (160-400) X10*3/uL MPV 11.5 (9.4-12.3) fL Immature Gran % (Auto) 0.4 (0.0-0.4) % Neut % (Auto) 85.0 H (45-73) % Lymph % (Auto) 11.3 L (20-40) % [place] % (Auto) 3.2 (2-11) % Eos % (Auto) 0.0 (0-4) % Baso % (Auto) 0.1 (0-2) % Lymph # (Auto) 1.3 (1.2-4.9) X10*3/uL [place] # (Auto) 0.4 (0.1-1.2) X10*3/uL Eos # (Auto) 0.0 (0.0-0.4) X10*3/uL Baso # (Auto) 0.0 (0.0-0.2) X10*3/uL Abs Immat Gran (auto) 0.04 H (0.00-0.03) X10*3/uL Absolute Neuts (auto) 9.6 H (2.0-8.3) x10*3/uL Absolute Nucleated RBC 0.000 (0.0-0.012) X10*3/uL Nucleated RBC % (auto) 0.0 (0.0-0.2) /100WBC Sodium 139 (135-145) mmol/L Potassium 3.1 L (3.3-5.1) mmol/L Chloride 101 (96-108) mmol/L Carbon Dioxide 26 (22-29) mmol/L Anion Gap 15 (12-20) BUN 10 (9-16) mg/dL Creatinine 0.75 (0.5-1.4) mg/dL Estim Creat Clear Calc 100.8 Estimated GFR > 60 Random Glucose 160 H (60-115) mg/dL Lactic Acid 1.8 (0.5-2.0) mmol/L Calcium 9.5 (8.4-10.2) mg/dL Magnesium 1.8 (1.6-2.6) mg/dL Total Bilirubin 0.3 (0.0-1.0) mg/dL AST 12 (5-31) U/L ALT 12 (0-31) U/L Alkaline Phosphatase 71 (39-117) U/L Total Protein 7.1 (6.5-8.0) g/dL Albumin 4.2 (3.5-5.0) g/dL Beta HCG, Quant < 2 mIU/mL COVID-19 (JUAREZ) Negative (Negative) COVID-19 Clin Com See Note Discharge Plan Discharge Clinical Impression: Right lower quadrant abdominal pain Patient Disposition: Still a Patient Prescriptions: No Action ferrous sulfate [iron] 325 mg (65 mg iron) Tablet 325 mg PO BID Qty: 60 3RF Xarelto 20 mg tablet 1 tab PO QPM ibuprofen 600 mg tablet 600 mg PO Q6H PRN (Reason: pain) Qty: 20 0RF oxycodone 5 mg capsule 5 mg PO BID PRN (Reason: pain) Qty: 8 0RF Rx Instructions: Partial Fill upon patient request. tramadol 50 mg tablet 50 mg PO Q12H PRN (Reason: Pain, Severe) sgvlpaahod-ydkxmnlhlqszi-wetz 50-325-40 mg tablet 1 tab PO TID PRN (Reason: migraine) sertraline 50 mg tablet 50 mg PO DAILY hydrochlorothiazide 12.5 mg capsule 12.5 mg PO DAILY benzonatate 100 mg capsule 100 mg PO Q8H PRN (Reason: cough)
[2023-08-29 02:15] LABS: Basophils Percent Auto 0.1 % (0-2); Hematocrit 36.8 % (37.0-47.0); Hemoglobin 12.3 g/dl (12.0-16.0); Imm Gran Abs Auto 0.04 X10*3/uL (0.00-0.03); Imm Gran Pct Auto 0.4 % (0.0-0.4); Lymphocytes Absolute Auto 1.3 X10*3/uL (1.2-4.9); Lymphocytes Percent Auto 11.3 % (20-40); MANUAL DIFF FLAG NO; Mean Corpuscular HGB Conc 33.4 g/dl (31.0-35.0); Mean Corpuscular Hemoglobin 28.7 pg (27.0-33.0); Mean Corpuscular Volume 85.8 fL (80.0-98.0); Mean Platelet Volume 11.5 fL (9.4-12.3); Monocytes Absolute Auto 0.4 X10*3/uL (0.1-1.2); Monocytes Percent Auto 3.2 % (2-11); Neutrophils Absolute Auto 9.6 x10*3/uL (2.0-8.3); Platelet Count 215 X10*3/uL (160-400); Red Blood Count 4.29 X10*6/uL (4.20-5.50); Red Cell Distribution Width 13.2 % (11.0-16.0); White Blood Count 11.3 X10*3/uL (4.8-10.8)
[2023-08-29] MEDS: ondansetron HCL 4 MG/2 ML VIAL IVPUSH ×2 (02:23→08:36)
[2023-08-29] MEDS: 0.9 % Sodium Chloride 1,000 ML 999 ML IV ×2 (02:24→06:04)
[2023-08-29 02:27] LABS: COVID-19 Test Negative (Negative); IDNOW Serial# 152EDE1D
[2023-08-29] MEDS: fentaNYL citrate/PF 100 MCG/2 ML VIAL 25 MCG IVPUSH ×2 (02:28→03:20)
--- NOTE | 2023-08-29 02:35 | PC.NURSE ---
Medicated per OCT. Allergy list updated and corrected.
[2023-08-29 02:36] LABS: Alanine Aminotransferase 12 U/L (0-31); Albumin Level 4.2 g/dL (3.5-5.0); Alkaline Phosphatase 71 U/L (39-117); Anion Gap 15 (12-20); Aspartate Amino Transferase 12 U/L (5-31); Bilirubin Total 0.3 mg/dL (0.0-1.0); Blood Urea Nitrogen 10 mg/dL (9-16); Calcium 9.5 mg/dL (8.4-10.2); Carbon Dioxide 26 mmol/L (22-29); Chloride 101 mmol/L (96-108); Creatinine Clr Calc Pharmacy 100.8; Estimated Glomerular Filt Rate > 60; Glucose Random 160 mg/dL (60-115); Potassium 3.1 mmol/L (3.3-5.1); Sodium 139 mmol/L (135-145); Total Protein 7.1 g/dL (6.5-8.0)
--- NOTE | 2023-08-29 02:36 | PC.NURSE ---
Pt is a 38 y/o female who presents for evaluation of abd pain with vomiting that started at approximately 2030 hours yesterday evening. No similar episodes reported in the past. Pain started in the right flank and radiates around to the front in RUQ. No history of kideny stones. Had gallbladder removed. Pain is rated 10/10 and pt is visibly uncomfortable on the stretcher, unable to get into a comfortable position. Last food intake was lunch today, consumed a slice of [employer] lovers pizza. Denies any trauma. No recent illness or fever reported. No contact with anyone sick. No recent travel.
[2023-08-29 02:38] LABS: HCG Quantitative < 2 mIU/mL
--- NOTE | 2023-08-29 02:40 | PC.NURSE ---
20G IV access established right AC. Line is patent without pain and no signs of infiltration.
[2023-08-29 05:23] LABS: Magnesium 1.8 mg/dL (1.6-2.6)
[2023-08-29] MEDS: Piperacillin Sodium/Tazobactam 3.375 GM in 0.9 % Sodium Chloride 50 ML IV ×3 (05:28→20:59)
[2023-08-29 05:31] LABS: Lactic Acid 1.8 mmol/L (0.5-2.0)
[2023-08-29] MEDS: HYDROmorphone HCl 0.5 MG/0.5 ML SYRINGE 0.25 MG IVPUSH (05:53)
--- NOTE | 2023-08-29 07:16 | PC.NURSE ---
Resumed care of patient. She is currently resting comfortably, all needs met, and call tinajero placed within reach
--- NOTE | 2023-08-29 08:32 | PM.HPGS ---
History of Present Illness History of Present Illness Date of Service: 09/01/23 Chief complaint: abdominal pain Narrative: Malena Sánchez is a 38 year old female here in the ER because of abdominal pain. She actually describes this as having started on the back and up to the front of her abdomen. She says this was mostly in the upper abdomen as well as the suprapubic area and be to the right side. She says this started about 03:00 o'clock yesterday afternoon She also had multiple episodes of vomiting overnight She says that currently her pain has resolved. She has had no further vomiting this morning here in the ER. She denies any problems with bowel movements. She denies dysuria. Review of Systems Constitutional: Constitutional: Denies chills and Denies fever(s) Cardiovascular: Cardiovascular: Denies chest pain, Denies dyspnea and Denies dyspnea on exertion Respiratory: Respiratory: Denies cough, Denies dyspnea and Denies dyspnea on exertion Gastrointestinal: Gastrointestinal: Denies hematochezia and Denies change in bowel habits Genitourinary: Genitourinary: Denies hematuria Musculoskeletal: Musculoskeletal: Denies back pain and Denies limited range of motion Neurologic: Denies focal weakness and Denies convulsions Psychiatric: Psychiatric: Denies depression and Denies mood swings PMFSH Past Medical History Medical History (Updated 09/01/23 @ 09:17 by Kushal Valderrama MD) Hypokalemia Hx of deep venous thrombosis Abdominal pain Endometriosis Family History Family History Mother Arthritis Maternal Grandmother Arthritis Mother Epilepsia Paternal Grandmother Cancer Surgical History Surgical History Tubal ligation status Social History Social History Household Members: Family Housing: House Do you presently have visiting nurse or other home services: No Alcohol intake: never Patient Tobacco Use Status: Never used Tobacco Tobacco use type: Cigarette service: No Current occupational status: employed Meds Allergies Allergy/AdvReac Type Severity Reaction Status Date / Time Motrin Allergy Unknown Swelling Uncoded 03/16/22 16:10 Active Medications: Current Medications Morphine Sulfate (Morphine Sulfate 2 Mg/Ml Cartridge) 2 mg IVPUSH Q3H PRN; Protocol PRN Reason: Pain, Severe (Pain Scale 7-10) Ondansetron HCl (Ondansetron Hcl 4 Mg/2 Ml Vial) 4 mg IVPUSH Q8H PRN PRN Reason: nausea Sodium Chloride (0.9 % Sodium Chloride Flush 3 Ml Syringe) 3 ml IVFLUSH QSHIFT [facility] Home Medications Medication Instructions Recorded Confirmed Last Taken Type wuthtbgeyf-udcekuvibbzep-mewzlzkl 1 tab PO TID PRN migraine 07/08/20 08/29/23 Unknown History 50 mg-325 mg-40 mg tablet hydrochlorothiazide 12.5 mg capsule 12.5 mg PO DAILY 07/08/20 08/29/23 Unknown History sertraline 50 mg tablet 50 mg PO DAILY 07/08/20 08/29/23 Unknown History rivaroxaban 20 mg tablet (Xarelto) 1 tab PO QPM 06/09/22 08/29/23 3 Days Ago History ~08/26/23 Physical Exam Vital Signs: Vital Signs: Last Vital Signs Temp 98.6 F 08/29/23 06:07 Pulse 50 08/29/23 06:07 Resp 17 08/29/23 06:07 BP 115/68 08/29/23 06:07 Pulse Ox 95 08/29/23 06:07 O2 Del Method Room Air 08/29/23 06:07 BMI result Body Mass Index 24.2 Const: Other: Looks well General: comfortable and no acute distress Orientation/consciousness: patient oriented x3 Neck: Neck: Yes no lymphadenopathy Resp: Auscultation: clear to auscultation bilaterally Cardio: Rhythm: regular rhythm GI: Palpation (GI): Soft to palpation, nontender and no guarding Neuro: General: patient oriented x3 Results Results Labs: Short CBC 08/29/23 Range/Units 02:09 WBC 11.3 H (4.8-10.8) X10*3/uL Hgb 12.3 (12.0-16.0) g/dl Hct 36.8 L (37.0-47.0) % Plt Count 215 (160-400) X10*3/uL BMP 08/29/23 02:09 Sodium 139 Potassium 3.1 L Chloride 101 Carbon Dioxide 26 BUN 10 Creatinine 0.75 Calcium 9.5 Liver Function 08/29/23 Range/Units 02:09 Total Bilirubin 0.3 (0.0-1.0) mg/dL AST 12 (5-31) U/L ALT 12 (0-31) U/L Alkaline Phosphatase 71 (39-117) U/L Albumin 4.2 (3.5-5.0) g/dL Assessment and Plan (1) Abdominal pain: Status: Acute Plan 38 year old female here in the ER for abdominal pain and vomiting. I have reviewed her CAT scan. There was note of a little bit of thickening of the appendix but no other inflammatory changes. Furthermore, her overall clinical picture does not present as a high index of suspicion for acute appendicitis. She her exam is very benign right now and she does not have any tenderness currently. I was requested by the ER to admit her for observation. I will not start her on antibiotics at this time although very early appendicitis can not be ruled out. There is no appendicolith seen on CT scan. She has an ultrasound pending. We will hold her Xarelo for now. Heparin subcutaneous has been ordered. I explained the plan to the patient. Quality Stroke Does the patient have a stroke diagnosis?: No VTE Prior VTE?: Yes VTE Risk Level:: Medical - low VTE Device Contraindication: N/A - Device Ordered VTE Drug Contraindication: Treatment Not Indicated Procedures Date of Service Date of Service: 09/01/23
[2023-08-29] MEDS: Morphine Sulfate 2 MG/ML CARTRIDGE IVPUSH ×4 (08:36→21:00)
--- NOTE | 2023-08-29 09:00 | PHA.MEDREC ---
Pharmacy Consult ? Medication Reconciliation Pharmacy has completed the medication reconciliation. Spoke to patient
[2023-08-29 11:50] LABS: Appearance Urine Cloudy; Color Urine Yellow; Glucose Urine UA Negative (Negative); Leukocyte Esterase Urine Trace (Negative); Nitrite Urine Negative (Negative); PH 6.5 (5.0-9.0); Specific Gravity - Urine >= 1.030 (1.005-1.025); UMIC TRIGGER UACC YES; Urine Blood Negative (Negative); Urine Ketones Trace mg/dL (Negative); Urine Protein Negative (Neg-Trace)
[2023-08-29 12:03] LABS: Bacteria Urine None Seen (None Seen); Hyaline Casts Urine 0-2 /LPF (0-2); RBC Urine 0-2 /HPF (0-2); WBC Urine 0-5 /HPF (0-5)
[2023-08-29] MEDS: Heparin Sodium,Porcine 5,000 UNIT/ML VIAL 5000 UNIT SUBCUT ×2 (14:30→21:00)
[2023-08-29] MEDS: Butalb/Acetamin/Caff 50/325/40 TABLET 1 TAB PO (14:30)
--- NOTE | 2023-08-29 15:25 | PM.EVENT ---
Event Note Date of Service: 08/29/23 Event Note: followed multiple times today she had another episode of pain around noontime she says this was on the epigastric area mostly as well as lower abdomen now feels well again comfortable exam benign, no signficant tenderness US report questions appencitis will start ZOsyn she currently looks well repeat labs in AM Time Spent With Patient Time: Total time managing care of this patient today ____ minutes.
[2023-08-29] MEDS: Dextrose 5 % and 0.9 % NaCl 1,000 ML 80 ML IVCONT (17:59)
[2023-08-29] MEDS: 0.9 % Sodium Chloride Flush 3 ML SYRINGE IVFLUSH (18:01)
[2023-08-30] VITALS (8 sets, daily range): BP systolic 92–106; BP diastolic 55–60; PULSE 50–62; RESP 16–19; TEMP 36.6–37.2; O2SAT 99–100; BMI 24.2
[2023-08-30] MEDS: Piperacillin Sodium/Tazobactam 3.375 GM in 0.9 % Sodium Chloride 50 ML IV ×4 (03:31→21:26)
[2023-08-30] MEDS: Heparin Sodium,Porcine 5,000 UNIT/ML VIAL 5000 UNIT SUBCUT ×2 (04:15→21:26)
[2023-08-30] MEDS: Morphine Sulfate 2 MG/ML CARTRIDGE IVPUSH ×6 (04:15→20:23)
[2023-08-30 06:51] LABS: Hematocrit 33.8 % (37.0-47.0); Mean Corpuscular HGB Conc 32.5 g/dl (31.0-35.0); Mean Corpuscular Hemoglobin 28.9 pg (27.0-33.0); Mean Corpuscular Volume 88.9 fL (80.0-98.0); Mean Platelet Volume 12.4 fL (9.4-12.3); Platelet Count 173 X10*3/uL (160-400); Red Cell Distribution Width 13.6 % (11.0-16.0); White Blood Count 7.9 X10*3/uL (4.8-10.8)
[2023-08-30 07:08] LABS: Anion Gap 10 (12-20); Blood Urea Nitrogen 8 mg/dL (9-16); Calcium 8.5 mg/dL (8.4-10.2); Carbon Dioxide 29 mmol/L (22-29); Chloride 106 mmol/L (96-108); Creatinine Clr Calc Pharmacy 102.2; Estimated Glomerular Filt Rate > 60; Glucose Random 114 mg/dL (60-115); Sodium 142 mmol/L (135-145)
[2023-08-30] MEDS: Dextrose 5 % and 0.9 % NaCl 1,000 ML 80 ML IVCONT (07:55)
--- NOTE | 2023-08-30 09:18 | MHC.CM.PN ---
ANEUDY DELIVERED PT LIVES WITH CHILDREN. INDEPENDENT AT BASELINE. NO HCP, PT DECLINES AT THIS TIME. PCP DR. HUNT AT [facility]. DP: HOME, NO SERVICES ANTICIPATED. PT HAS OWN RIDE HOME. CM WILL CONTINUE TO FOLLOW FOR ANY CHANGE IN PLAN.
--- NOTE | 2023-08-30 10:10 | PM.PNGS ---
Subjective Subjective Date of Service: 08/30/23 Interval history: States she has periodic abdominal pain although not as bad Says this was pain on the right lower quadrant Overall feels better No fever Physical Exam Vital Signs: Vital Signs: Last Vital Signs Temp 98.1 F 08/30/23 07:29 Pulse 50 08/30/23 07:29 Resp 19 08/30/23 07:50 BP 102/55 L 08/30/23 07:29 Pulse Ox 100 08/30/23 07:29 O2 Del Method Room Air 08/30/23 07:29 BMI result Body Mass Index 24.2 Const: Other: Looks well General: comfortable and no acute distress Resp: Effort & Inspection: normal respiratory effort Cardio: Rate: regular rate GI: Other: Very minimal tenderness lower abdomen Palpation (GI): Soft to palpation, not firm and no guarding Objective Data Active Medications Acetaminophen/Butalbital/Caffeine (Butalb/Acetamin/Caff 50/325/40 Tablet) 1 tab PO TID PRN PRN Reason: migraine Last Admin: 08/29/23 14:30 Dose: 1 tab Documented By: AROLDO Heparin Sodium (Porcine) (Heparin Sodium,Porcine 5,000 Unit/Ml Vial) 5,000 unit SUBCUT Q8H COUNTS INCLUDE 234 BEDS AT THE [facility] Last Admin: 08/30/23 04:15 Dose: 5,000 unit Documented By: MANUELITO Hydrochlorothiazide (Hydrochlorothiazide 12.5 Mg Tablet) 12.5 mg PO DAILY COUNTS INCLUDE 234 BEDS AT THE [facility]; Protocol Last Admin: 08/30/23 07:50 Dose: Not Given Documented By: DASHAWN Non-Admin Reason: Patient Refused Dextrose/Sodium Chloride (D5ns) 1,000 mls @ 80 mls/hr IVCONT .[id number] COUNTS INCLUDE 234 BEDS AT THE [facility] Last Admin: 08/30/23 07:55 Dose: 80 mls/hr Documented By: COTJESSICA Piperacillin Sod/Tazobactam (Sod 3.375 gm/ Sodium Chloride) 50 mls @ 100 mls/hr IV Q6H COUNTS INCLUDE 234 BEDS AT THE [facility] Last Infusion: 08/30/23 08:51 Dose: Infused Documented By: DASHAWN Morphine Sulfate (Morphine Sulfate 2 Mg/Ml Cartridge) 2 mg IVPUSH Q3H PRN; Protocol PRN Reason: Pain, Severe (Pain Scale 7-10) Last Admin: 08/30/23 07:50 Dose: 2 mg Documented By: DASHAWN Ondansetron HCl (Ondansetron Hcl 4 Mg/2 Ml Vial) 4 mg IVPUSH Q8H PRN PRN Reason: nausea Last Admin: 08/29/23 08:36 Dose: 4 mg Documented By: AROLDO Sertraline HCl (Sertraline Hcl 50 Mg Tablet) 50 mg PO DAILY COUNTS INCLUDE 234 BEDS AT THE [facility] Last Admin: 08/30/23 07:50 Dose: Not Given Documented By: DASHAWN Non-Admin Reason: Patient Refused Sodium Chloride (0.9 % Sodium Chloride Flush 3 Ml Syringe) 3 ml IVFLUSH QSHIFT COUNTS INCLUDE 234 BEDS AT THE [facility] Last Admin: 08/30/23 07:50 Dose: Not Given Documented By: DASHAWN Non-Admin Reason: IV Running Labs 08/30/23 05:28 08/30/23 05:28 Labs: Laboratory Results - last 24 hr 08/29/23 08/30/23 11:44 05:28 MCV 88.9 MCH 28.9 MCHC 32.5 RDW 13.6 Plt Count 173 MPV 12.4 H Absolute Nucleated RBC 0.000 Nucleated RBC % (auto) 0.0 Anion Gap 10 L Estim Creat Clear Calc 102.2 Estimated GFR > 60 Random Glucose 114 Calcium 8.5 D Urine Color Yellow Urine Appearance Cloudy Urine pH 6.5 Ur Specific [place] >= 1.030 H Urine Protein Negative Urine Glucose (UA) Negative Urine Ketones Trace Urine Blood Negative Urine Nitrite Negative Ur Leukocyte Esterase Trace H Urine RBC 0-2 Urine WBC 0-5 Ur Squamous Epith Cells 11-20 Urine Bacteria None Seen Hyaline Casts 0-2 Microbiology Microbiology Results: Microbiology 08/29/23 05:13 Blood Culture - Preliminary Blood - Venous No growth after 24 hours. 08/29/23 05:13 Blood Culture - Preliminary Blood - Venous No growth after 24 hours. Procedures Date of Service Date of Service: 08/30/23 Progress Note: A&P Assessment and plan (1) Hypokalemia: Status: Acute Assessment and Plan: Replaced with p.o. potassium (2) Abdominal pain: Status: Acute Assessment and Plan: Question of appendicitis although pain was very atypical Much improved She had been on Xarelto this has been on hold No leukocytosis No fever She looks well so we will continue with current treatment Time Spent With Patient Time: Total time managing care of this patient today ____ minutes. Quality Stroke Does the patient have a stroke diagnosis?: No VTE Prior VTE?: No VTE Risk Level:: Medical - low VTE Device Contraindication: N/A - Device Ordered VTE Drug Contraindication: Treatment Not Indicated
[2023-08-30] MEDS: Potassium Chloride Packet 20 MEQ PACKET 40 MEQ PO ×2 (10:37→13:00)
[2023-08-30] MEDS: Butalb/Acetamin/Caff 50/325/40 TABLET 1 TAB PO ×2 (13:32→21:25)
[2023-08-31] MEDS: Morphine Sulfate 2 MG/ML CARTRIDGE IVPUSH ×7 (00:20→23:53)
[2023-08-31] MEDS: Dextrose 5 % and 0.9 % NaCl 1,000 ML 80 ML IVCONT ×3 (00:22→19:42)
[2023-08-31] MEDS: Piperacillin Sodium/Tazobactam 3.375 GM in 0.9 % Sodium Chloride 50 ML IV ×4 (03:11→21:02)
[2023-08-31 03:21] VITALS: BP 118/74; PULSE 61; RESP 18; TEMP 36.2; O2SAT 100
[2023-08-31] MEDS: Heparin Sodium,Porcine 5,000 UNIT/ML VIAL 5000 UNIT SUBCUT ×3 (05:05→21:03)
[2023-08-31 07:35] VITALS: BP 120/62; PULSE 50; RESP 18; TEMP 36.6; O2SAT 100
[2023-08-31] MEDS: Sertraline HCL 50 MG TABLET PO (08:01)
[2023-08-31 09:41] LABS: Anion Gap 8 (12-20); Blood Urea Nitrogen 6 mg/dL (9-16); Calcium 8.6 mg/dL (8.4-10.2); Carbon Dioxide 27 mmol/L (22-29); Chloride 109 mmol/L (96-108); Creatinine Clr Calc Pharmacy 109.6; Estimated Glomerular Filt Rate > 60; Glucose Random 109 mg/dL (60-115); Potassium 3.4 mmol/L (3.3-5.1); Sodium 141 mmol/L (135-145)
[2023-08-31] MEDS: Butalb/Acetamin/Caff 50/325/40 TABLET 1 TAB PO ×2 (11:19→21:12)
--- NOTE | 2023-08-31 12:36 | P.PNGS_ITS ---
Subjective Subjective Date of Service: 09/01/23 Interval history: says she still has occasional pain tolerating clears passing flatus no fever Physical Exam 2 Vital Signs: Vital Signs: Last Vital Signs Temp 97.9 F 08/31/23 07:35 Pulse 50 08/31/23 07:35 Resp 18 08/31/23 07:35 BP 120/62 08/31/23 07:35 Pulse Ox 100 08/31/23 07:35 O2 Del Method Room Air 08/31/23 07:35 BMI result Body Mass Index 24.2 Const: General: comfortable and no acute distress Resp: Effort & Inspection: normal respiratory effort Cardio: Rate: regular rate GI: Palpation (GI): Soft to palpation, not firm, Tenderness to palpation present (GI) (says she is a little tender on the left) and no guarding Objective Data Active Medications Acetaminophen/Butalbital/Caffeine (Butalb/Acetamin/Caff 50/325/40 Tablet) 1 tab PO TID PRN PRN Reason: migraine Last Admin: 08/31/23 11:19 Dose: 1 tab Documented By: DASHAWN Heparin Sodium (Porcine) (Heparin Sodium,Porcine 5,000 Unit/Ml Vial) 5,000 unit SUBCUT Q8H [facility] Last Admin: 08/31/23 11:19 Dose: 5,000 unit Documented By: DASHAWN Hydrochlorothiazide (Hydrochlorothiazide 12.5 Mg Tablet) 12.5 mg PO DAILY [facility]; Protocol Last Admin: 08/31/23 07:41 Dose: Not Given Documented By: DASHAWN Non-Admin Reason: Patient Refused Dextrose/Sodium Chloride (D5ns) 1,000 mls @ 80 mls/hr IVCONT .[id number] [facility] Last Admin: 08/31/23 00:22 Dose: 80 mls/hr Documented By: BOURQC Piperacillin Sod/Tazobactam (Sod 3.375 gm/ Sodium Chloride) 50 mls @ 100 mls/hr IV Q6H [facility] Last Infusion: 08/31/23 08:41 Dose: Infused Documented By: DASHAWN Morphine Sulfate (Morphine Sulfate 2 Mg/Ml Cartridge) 2 mg IVPUSH Q3H PRN; Protocol PRN Reason: Pain, Severe (Pain Scale 7-10) Last Admin: 08/31/23 08:01 Dose: 2 mg Documented By: DASHAWN Ondansetron HCl (Ondansetron Hcl 4 Mg/2 Ml Vial) 4 mg IVPUSH Q8H PRN PRN Reason: nausea Last Admin: 08/29/23 08:36 Dose: 4 mg Documented By: AROLDO Sertraline HCl (Sertraline Hcl 50 Mg Tablet) 50 mg PO DAILY [facility] Last Admin: 08/31/23 08:01 Dose: 50 mg Documented By: DASHAWN Sodium Chloride (0.9 % Sodium Chloride Flush 3 Ml Syringe) 3 ml IVFLUSH QSHIFT [facility] Last Admin: 08/31/23 07:11 Dose: Not Given Documented By: DASHAWN Non-Admin Reason: IV Running Labs 08/30/23 05:28 08/31/23 09:00 Labs: Laboratory Results - last 24 hr 08/31/23 09:00 Anion Gap 8 L Estim Creat Clear Calc 109.6 Estimated GFR > 60 Random Glucose 109 Calcium 8.6 Microbiology Microbiology Results: Microbiology 08/29/23 05:13 Blood Culture - Preliminary Blood - Venous No growth after 48 hours. 08/29/23 05:13 Blood Culture - Preliminary Blood - Venous No growth after 48 hours. Procedures Date of Service Date of Service: 09/01/23 Progress Note: A&P Assessment and plan (1) Abdominal pain: Status: Acute Assessment and Plan: clinically not appendicitis has had no fever she actually looks well but says she still has periodic pain abdl exam try full liquids K replaced - now 3.4 Time Spent With Patient Time: Total time managing care of this patient today ____ minutes. Quality Stroke Does the patient have a stroke diagnosis?: No VTE Prior VTE?: No VTE Risk Level:: Medical - low VTE Device Contraindication: N/A - Device Ordered VTE Drug Contraindication: Treatment Not Indicated
[2023-08-31 15:16] VITALS: BP 110/69; PULSE 60; RESP 18; TEMP 37.3; O2SAT 100
--- NOTE | 2023-08-31 15:56 | MHC.CM.PN ---
pt per rounds pt not medically ready for dc
--- NOTE | 2023-08-31 16:01 | P.EN_ITS ---
Event Note Date of Service: 08/31/23 Event Note: Seen on afternoon rounds She describes pinkish vaginal discharge She also says she has pain on the left side of the pelvis She otherwise appears comfortable Exam remains very benign Stable vital signs On full liquid diet She wants to see a counter waitress/waiter - I will consult Dr. Valderrama Time Spent With Patient Time: Total time managing care of this patient today ____ minutes.
[2023-08-31 16:24] VITALS: RESP 19
[2023-08-31 19:21] VITALS: BP 129/72; PULSE 70; RESP 16; TEMP 36.2; O2SAT 100
[2023-08-31] MEDS: ondansetron HCL 4 MG/2 ML VIAL IVPUSH (21:12)
[2023-09-01] MEDS: Dextrose 5 % and 0.9 % NaCl 1,000 ML 80 ML IVCONT (03:02)
[2023-09-01] MEDS: Piperacillin Sodium/Tazobactam 3.375 GM in 0.9 % Sodium Chloride 50 ML IV ×2 (03:03→09:34)
[2023-09-01 03:16] VITALS: BP 110/64; PULSE 44; RESP 16; TEMP 36.1; O2SAT 97
[2023-09-01] MEDS: Heparin Sodium,Porcine 5,000 UNIT/ML VIAL 5000 UNIT SUBCUT (05:21)
[2023-09-01] MEDS: Morphine Sulfate 2 MG/ML CARTRIDGE IVPUSH ×2 (05:50→09:43)
[2023-09-01 07:25] VITALS: BP 111/69; PULSE 51; RESP 12; TEMP 36.9; O2SAT 100
--- NOTE | 2023-09-01 08:33 | P.CONOB_ITS ---
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 The patient has been on IV piperacillin since admission. Patient states that she had a new sexual partner and has been having unprotected intercourse, started complaining of vaginal pinkish discharge since yesterday no foul smell and/or vulvovaginal irritation/itching . Urine test and hCG on 08/29 both were negative. Pelvic ultrasound showed right hydrosalpinx which was seen on a previous ultrasound in 2021, and an endometrial polyp preop cc:: CC: Wiliam Ureña MD OB [facility] Past Medical History Medical History (Updated 09/01/23 @ 09:17 by Kushal Valderrama MD) Hypokalemia Hx of deep venous thrombosis Abdominal pain Endometriosis Family History Family History Mother Arthritis Maternal Grandmother Arthritis Mother Epilepsia Paternal Grandmother Cancer Surgical History Surgical History Tubal ligation status Social History Social History Household Members: Family Housing: House Do you presently have visiting nurse or other home services: No Alcohol intake: never Patient Tobacco Use Status: Never used Tobacco Tobacco use type: Cigarette Use of substances other than those prescribed or required for medical reasons: No Currently Displaying Signs/Symptoms of Drug Intoxication Withdrawal: No Have you been hit, kicked, punched, or otherwise hurt by someone within the past year? If so, by whom?: No Do you feel safe in your current relationship?: Yes Is there a partner from a previous relationship who is making you feel unsafe now?: No Are you made to feel afraid or neglected: No Advance Directives: No Advance Directives Information Provided: Yes Do you have thoughts of harming others: None Do you have a plan to hurt others: No Plan Recently lost weight without trying: No How much weight loss: Not applicable Eating poorly because of decreased appetite: No Nutrition screen score: 0 Nutrition Risks: No Nutritional Risk Patient : No : No Poor oral hygiene: No service: No Current occupational status: employed Meds Allergies Allergy/AdvReac Type Severity Reaction Status Date / Time Motrin Allergy Unknown Swelling Uncoded 03/16/22 16:10 Active Medications: Current Medications Acetaminophen/Butalbital/Caffeine (Butalb/Acetamin/Caff 50/325/40 Tablet) 1 tab PO TID PRN PRN Reason: migraine Last Admin: 08/31/23 21:12 Dose: 1 tab Heparin Sodium (Porcine) (Heparin Sodium,Porcine 5,000 Unit/Ml Vial) 5,000 unit SUBCUT Q8H [facility] Last Admin: 09/01/23 05:21 Dose: 5,000 unit Hydrochlorothiazide (Hydrochlorothiazide 12.5 Mg Tablet) 12.5 mg PO DAILY [facility]; Protocol Last Admin: 09/01/23 07:29 Dose: Not Given Piperacillin Sod/Tazobactam (Sod 3.375 gm/ Sodium Chloride) 50 mls @ 100 mls/hr IV Q6H [facility] Last Infusion: 09/01/23 03:38 Dose: Infused Dextrose/Sodium Chloride (D5ns) 1,000 mls @ 80 mls/hr IVCONT .[id number] [facility] Last Admin: 09/01/23 03:02 Dose: 80 mls/hr Morphine Sulfate (Morphine Sulfate 2 Mg/Ml Cartridge) 2 mg IVPUSH Q3H PRN; Protocol PRN Reason: Pain, Severe (Pain Scale 7-10) Last Admin: 09/01/23 05:50 Dose: 2 mg Ondansetron HCl (Ondansetron Hcl 4 Mg/2 Ml Vial) 4 mg IVPUSH Q8H PRN PRN Reason: nausea Last Admin: 08/31/23 21:12 Dose: 4 mg Sertraline HCl (Sertraline Hcl 50 Mg Tablet) 50 mg PO DAILY [facility] Last Admin: 08/31/23 08:01 Dose: 50 mg Sodium Chloride (0.9 % Sodium Chloride Flush 3 Ml Syringe) 3 ml IVFLUSH QSHIFT [facility] Last Admin: 09/01/23 07:28 Dose: Not Given Home Medications Medication Instructions Recorded Confirmed Last Taken Type [id number]-fykccefnldhhb-[id number] 1 tab PO TID PRN migraine 07/08/20 08/29/23 Unknown History 50 mg-325 mg-40 mg tablet hydrochlorothiazide 12.5 mg capsule 12.5 mg PO DAILY 07/08/20 08/29/23 Unknown History sertraline 50 mg tablet 50 mg PO DAILY 07/08/20 08/29/23 Unknown History rivaroxaban 20 mg tablet (Xarelto) 1 tab PO QPM 06/09/22 08/29/23 3 Days Ago History ~08/26/23 SENIOR ASIC DESIGN ENGINEER Physical Exam Vitals Vital signs: Temp Pulse Resp BP Pulse Ox O2 Del Method 98.4 F 51 12 111/69 100 Room Air 09/01/23 07:25 09/01/23 07:25 09/01/23 07:25 09/01/23 07:25 09/01/23 07:25 09/01/23 07:25 BMI result Body Mass Index 24.2 Abdomen Auscultation/Inspection/Palpation: Soft and Tenderness (Mild bilateral lower quadrant tenderness) Female Genitalia (Pelvic) Bladder/Urethra: Normal meatus Vagina: Nontender and Abnormal discharge Cervix: Cervical motion tenderness Uterus: Tender Adnexa/Parametria: Adnexal Tenderness: Bilateral SENIOR ASIC DESIGN ENGINEER - Results Labs 08/30/23 05:28 08/31/23 09:00 Labs: BMP 08/31/23 09:00 Sodium 141 Potassium 3.4 Chloride 109 H Carbon Dioxide 27 BUN 6 L Creatinine 0.69 Calcium 8.6 Urine 08/29/23 Range/Units 11:44 Urine Color Yellow Urine Appearance Cloudy Urine pH 6.5 (5.0-9.0) Ur Specific White >= 1.030 H (1.005-1.025) Urine Protein Negative (Neg-Trace) mg/dL Urine Glucose (UA) Negative (Negative) mg/dL Imaging US - abdomen: Radiologist's impression: ITS Impressions Abdomen/Pelvis CT 08/29/23 03:05 IMPRESSION: 1. No evidence of renal calculi or hydronephrosis. 2. The appendix is borderline in size measuring 6 to 7 mm in diameter. No surrounding inflammatory changes are seen to suggest acute appendicitis. Correlation and follow-up suggested. Fleischner guidelines were followed. Doppler Study Ultrasound 08/29/23 08:09 IMPRESSION: 1. No evidence of ovarian torsion. 2. The appendix is relatively unremarkable, upper limits of normal in size, without inflammatory change. Recommend correlation with clinical exam as well as CRP, WBC, etc. 3. Incidental note made of a 10 mm endometrial polyp. 4. Tubular structure medial to the right ovary could represent a small area of hydrosalpinx versus a small cyst. Pelvic/Transvag US 08/29/23 08:09 IMPRESSION: 1. No evidence of ovarian torsion. 2. The appendix is relatively unremarkable, upper limits of normal in size, without inflammatory change. Recommend correlation with clinical exam as well as CRP, WBC, etc. 3. Incidental note made of a 10 mm endometrial polyp. 4. Tubular structure medial to the right ovary could represent a small area of hydrosalpinx versus a small cyst. Assessment and Plan (1) Abdominal pain: Status: Acute GC and chlamydia with BV panel taken. Will order STD screen including hepatitis-B surface antigen, HIV, syphilis screen, hep C antibody . As long as the patient is able to tolerate p.o. regimen Will treat per CDC recommended oral regimen for PID with ceftriaxone 500 mg IM x1, doxycycline 100 mg p.o. b.i.d. with Flagyl 500 mg p.o. b.i.d. for 14 days, otherwise I recommend ceftriaxone 1 g Q 24 hours with doxycycline 100 mg IV q.12 and metronidazole 500 mg IV q.12 till the patient is able to tolerate p.o. and can be discharged on the p.o. regimen to follow-up in my office within a week. Instructions were given the patient after discharge to call or go to emergency room in case of fever equal or above 100.4, persistent or worsening of her abdominal/pelvic pain, nausea or vomiting and to schedule a 1 week follow-up appointment (2) Endometrial polyp: Status: Acute Discussed with the patient the finding on ultrasound showing endometrial polyp, will manage on outpatient basis , hysteroscopic polypectomy (3) Hydrosalpinx: Status: Acute Since this not a new finding, right hydrosalpinx was seen on a previous pelvic ultrasound dated 06/29, it is unlikely that her pain is related to the right hydrosalpinx, will manage or outpatient patient's if the pain persists will consider laparoscopic right salpingectomy.
[2023-09-01] MEDS: metroNIDAZOLE 500 MG TABLET PO (09:33)
[2023-09-01] MEDS: Sertraline HCL 50 MG TABLET PO (09:33)
[2023-09-01] MEDS: Doxycycline Monohydrate 100 MG CAPSULE PO (09:33)
[2023-09-01 09:43] VITALS: RESP 19
--- NOTE | 2023-09-01 09:46 | PM.PNGS ---
Subjective Subjective Date of Service: 09/01/23 Interval history: Tolerating liquids Some occasional pain the left pelvic area A little bit of vaginal discharge Physical Exam Vital Signs: Vital Signs: Last Vital Signs Temp 98.4 F 09/01/23 07:25 Pulse 51 09/01/23 07:25 Resp 19 09/01/23 09:43 BP 111/69 09/01/23 07:25 Pulse Ox 100 09/01/23 07:25 O2 Del Method Room Air 09/01/23 07:25 BMI result Body Mass Index 24.2 Const: General: comfortable and no acute distress Resp: Effort & Inspection: normal respiratory effort GI: Palpation (GI): Soft to palpation, not firm, Tenderness to palpation present (GI) (Mild tenderness on the left pelvic area) and no guarding Objective Data Active Medications Acetaminophen/Butalbital/Caffeine (Butalb/Acetamin/Caff 50/325/40 Tablet) 1 tab PO TID PRN PRN Reason: migraine Last Admin: 08/31/23 21:12 Dose: 1 tab Documented By: JACKIE Doxycycline Monohydrate (Doxycycline Monohydrate 100 Mg Capsule) 100 mg PO Q12H [facility] Last Admin: 09/01/23 09:33 Dose: 100 mg Documented By: DASHAWN Heparin Sodium (Porcine) (Heparin Sodium,Porcine 5,000 Unit/Ml Vial) 5,000 unit SUBCUT Q8H [facility] Last Admin: 09/01/23 05:21 Dose: 5,000 unit Documented By: JACKIE Hydrochlorothiazide (Hydrochlorothiazide 12.5 Mg Tablet) 12.5 mg PO DAILY [facility]; Protocol Last Admin: 09/01/23 07:29 Dose: Not Given Documented By: ISELAEMA Non-Admin Reason: Patient Refused Piperacillin Sod/Tazobactam (Sod 3.375 gm/ Sodium Chloride) 50 mls @ 100 mls/hr IV Q6H [facility] Last Admin: 09/01/23 09:34 Dose: 100 mls/hr Documented By: COTEMA Dextrose/Sodium Chloride (D5ns) 1,000 mls @ 80 mls/hr IVCONT .[id number] [facility] Last Admin: 09/01/23 03:02 Dose: 80 mls/hr Documented By: JACKIE Metronidazole (Metronidazole 500 Mg Tablet) 500 mg PO Q12H [facility] Last Admin: 09/01/23 09:33 Dose: 500 mg Documented By: MARYANN.COTEMA Morphine Sulfate (Morphine Sulfate 2 Mg/Ml Cartridge) 2 mg IVPUSH Q3H PRN; Protocol PRN Reason: Pain, Severe (Pain Scale 7-10) Last Admin: 09/01/23 09:43 Dose: 2 mg Documented By: MARYANN.COTEMA Ondansetron HCl (Ondansetron Hcl 4 Mg/2 Ml Vial) 4 mg IVPUSH Q8H PRN PRN Reason: nausea Last Admin: 08/31/23 21:12 Dose: 4 mg Documented By: MARYANN.CROP Sertraline HCl (Sertraline Hcl 50 Mg Tablet) 50 mg PO DAILY [facility] Last Admin: 09/01/23 09:33 Dose: 50 mg Documented By: COTEMA Sodium Chloride (0.9 % Sodium Chloride Flush 3 Ml Syringe) 3 ml IVFLUSH QSHIFT [facility] Last Admin: 09/01/23 07:28 Dose: Not Given Documented By: COTEMA Non-Admin Reason: IV Running Labs 08/30/23 05:28 08/31/23 09:00 Microbiology Microbiology Results: Microbiology 08/29/23 05:13 Blood Culture - Preliminary Blood - Venous No growth after 48 hours. 08/29/23 05:13 Blood Culture - Preliminary Blood - Venous No growth after 48 hours. Procedures Date of Service Date of Service: 09/01/23 Progress Note: A&P Assessment and plan (1) Abdominal pain: Status: Acute Assessment and Plan: Evaluated by gift shop manager Likely PID Antibiotics started Exam benign Advance diet Likely DC home later on today Time Spent With Patient Time: Total time managing care of this patient today ____ minutes. Quality Stroke Does the patient have a stroke diagnosis?: No VTE Prior VTE?: No VTE Risk Level:: Medical - low VTE Device Contraindication: N/A - Device Ordered VTE Drug Contraindication: Treatment Not Indicated
[2023-09-01 10:20] LABS: Syphilis Screen Nonreactive (Nonreactive)
[2023-09-01 11:06] LABS: HBsAGNum1 0.29 S/CO (0.00-0.99); HIV AB/AG Nonreactive (Nonreactive); HIV Num 1 0.07 S/CO (0.00-0.99); Hepatitis B Surface Antigen Negative (Negative); ~HepC Num1 0.08 S/CO (0.00-0.79); ~Hepatitis C Antibody Nonreactive (Nonreactive)
--- NOTE | 2023-09-01 12:03 | PM.EVENT ---
Event Note Date of Service: 09/01/23 Event Note: tolerating diet occasional sharp pain L pelvic area seen by Gyne- likely PID Ceftriaxone now, Flagyl and Doxycyline PO x 2 weeks she looks comfortable no fever ok to dc home she is comfortable with plan ffup with Dr Valderrama Time Spent With Patient Time: Total time managing care of this patient today ____ minutes.
[2023-09-01 12:05] LABS: CT PCR NOT DETECTED (Not Detect.); NG PCR NOT DETECTED (Not Detect.)
--- NOTE | 2023-09-01 12:24 | MHC.CM.PN ---
EMR reviewed. Patient is medically cleared for dc on PO abx. Will f/u with [employer] outpatient. Patient's boyfriend will transport home at 1:30pm. RN aware.
[2023-09-01] MEDS: cefTRIAXone sodium 500 MG VIAL IM (12:32)
[2023-09-02 09:24] LABS: BV Int Neg Control Negative (Negative); BV Int Pos Control Positive (Positive)
--- NOTE | 2023-09-02 12:55 | PM.DS ---
DS: Providers Provider Date of Service: 09/01/23 Date of admission: 08/30/23 12:41 Primary care physician: Kelsey Huggins MD Attending physician on admission: Wiliam Ureña Consults: 08/31/23 16:02 Consult to Obstetrics / Gynecology Routine Consulting Provider: Kushal Valderrama Reason for consultation: vaginal discharge Attending physician on discharge: Wiliam Ureña DS: Diagnosis Discharge Diagnosis (1) Abdominal pain: Status: Acute DS: Summary Hospital Course Hospital Course: HPI AT ADMISSION: Malena Sánchez is a 38 year old female here in the ER because of abdominal pain. She actually describes this as having started on the back and up to the front of her abdomen. She says this was mostly in the upper abdomen as well as the suprapubic area and be to the right side. She says this started about 03:00 o'clock yesterday afternoon. She also had multiple episodes of vomiting overnight. She says that currently her pain has resolved. She has had no further vomiting this morning here in the ER. She denies any problems with bowel movements. She denies dysuria. HOSPITAL COURSE: She was admitted to the surgical service for the abdominal pain and observation. Her CT scan showed a little bit of thickening of the appendix but no other inflammatory changes and her overall clinical picture does not present as a high index of suspicion for acute appendicitis. She was very benign appearing. Her xarelto was held for possible surgical intervention. Heparin subcutaneous has been ordered. She was kept npo. She continued with abd pain and therefore was started on IV abx with some improvement. However she stated she still had intermittent severe pain. She then developed a pinkish vaginal discharge and her pain became more localized to her pelvis. She was seen by [employer] who recommended treating for PID. STD panel was obtained. She received ceftriaxone 500 mg IM x1 and then doxycycline 100 mg p.o. b.i.d. with Flagyl 500 mg p.o. b.i.d. for 14 days. She was tolerating a solid diet. Her pain improved. She had a benign abd exam and was non toxic appearing. She was discharged on 09/01/23 in stable condition with f/u in Early Childhood Education Instructor office in 2 weeks. Her xarelto was resumed. Status at Discharge Functional status at discharge: independent ambulation Overall status at discharge: patient is progressing back to baseline Time Attestation Discharge coordination time: Less than 30 minutes Quality: Safe Use of Opioids Does Pt have an Active Cancer Diagnosis on the Problem List?: No Quality: Stroke Does the patient have a stroke diagnosis?: No Physical Exam Vital Signs: Vital Signs: Last Vital Signs Temp 98.4 F 09/01/23 07:25 Pulse 51 09/01/23 07:25 Resp 19 09/01/23 09:43 BP 111/69 09/01/23 07:25 Pulse Ox 100 09/01/23 07:25 O2 Del Method Room Air 09/01/23 07:25 BMI result Body Mass Index 24.2 Const: General: comfortable, no acute distress and alert Orientation/consciousness: patient oriented x3 GI: Inspection: No distended Palpation (GI): Soft to palpation, nontender and no guarding Skin: General skin exam: no rashes or lesions noted Neuro: General: patient oriented x3 DS: Data Data Completed and Pending Labs on day of discharge: Laboratory Results - last 24 hr 09/01/23 08:45 Isabell species DNA Negative Gardnerella DNA Probe Negative Trichomonas DNA Probe Negative Preliminary micro results at discharge 08/29/23 05:13 Blood Culture - Preliminary Blood - Venous No growth after 48 hours. 08/29/23 05:13 Blood Culture - Preliminary Blood - Venous No growth after 48 hours. Discharge Plan Discharge Anticipated Discharge Date/Time: 09/01/23 14:00 Patient Disposition: Home, Self-Care Discharge Diagnosis: PID Referrals: Kelsey Huggins MD [Primary Care Provider] - 1 Week Kushal Valderrama MD [Physician] - 2 Weeks Discharge Medications: New doxycycline hyclate 100 mg capsule 100 mg PO BID Qty: 28 0RF metronidazole 500 mg tablet 500 mg PO BID Qty: 28 0RF Continued Xarelto 20 mg tablet 1 tab PO QPM pspjqohfsy-zjlllcqrhiipr-jgkh 50-325-40 mg tablet 1 tab PO TID PRN (Reason: migraine) sertraline 50 mg tablet 50 mg PO DAILY hydrochlorothiazide 12.5 mg capsule 12.5 mg PO DAILY Discharge Orders: Discharge Order (Routine); Ordered 09/01/23 Ordered By: Wiliam Ureña Diet: Advance to usual diet Activity on Discharge: No heavy lifting Stand Alone Forms: Patient Portal Discharge page Activity Restrictions/Additional Instructions: Need to follow-up with Dr. Valderrama in 2 weeks Care Plan Goals: Oral antibiotics for PID Health Concerns: PID History of DVT Plan of Treatment: Oral antibiotics Restart all home meds Assessment: Doing well Discharge Date/Time: 09/01/23 13:25
== END 2023-09-01 13:25 | disposition home or self-care (01) | DRG 531 ==
LOC: HO.ED 07:29 → HO.EDOVER 08:12 → HO.S3 16:06
PROVIDERS: Obstetrics & Gynecology; Student in an Organized Health Care Education/Training Program; Admitting Provider Surgery; Emergency Provider Emergency Medicine; PCP Internal Medicine; Visit Provider Surgery
DX: N73.9 Female pelvic inflammatory disease, unspecified (principal); E87.6 Hypokalemia; N84.0 Polyp of corpus uteri; N70.11 Chronic salpingitis; Z20.822 Contact with and (suspected) exposure to COVID-19; Z79.01 Long term (current) use of anticoagulants; Z79.899 Other long term (current) drug therapy
CPT/HCPCS: 0353U; 36415; 74176; 76830; 76856; 80048; 80053; 81001; 83605; 83735; 84702; 85025; 85027; 86780; 86803; 87040; 87340; 87389; 87480; 87510; 87635; 87660; 93975; 99221; 99285; J0696; J1170; J1644; J2270; J2405; J2543; J3010

== ENCOUNTER → 2023-08-29 08:06 | Outpatient (BNV) | payer MEDICAID, SELFPAY | PROVIDERS: Admitting Provider Surgery; Emergency Provider Emergency Medicine; Visit Provider Surgery | DX: R10.9 Unspecified abdominal pain (principal) | CPT/HCPCS: 99222; 99232; 99238; 99499 ==

== ENCOUNTER → 2023-08-30 12:41 | Outpatient (BNV) | payer MEDICAID, SELFPAY | PROVIDERS: Admitting Provider Surgery; Emergency Provider Emergency Medicine; PCP Internal Medicine; Visit Provider Obstetrics & Gynecology | DX: R10.9 Unspecified abdominal pain (principal); N84.0 Polyp of corpus uteri; N70.11 Chronic salpingitis | CPT/HCPCS: 99223 ==

== ENCOUNTER 2023-09-06 13:05 | Outpatient (AMB) | payer MEDICAID, SELFPAY ==
--- NOTE | 2023-09-06 13:06 | A.OFFVIS_ITS ---
Intake Vital Signs 09/06/23 13:13 Height 5 ft 7 in Weight 144 lb BMI 22.6 BP 108/58 L Intake Visit Reasons: Consult PID Senior Product Integrity Engineer Required: Yes Senior Product Integrity Engineer Language: Clinical Trial Specialist Name: Cici MARR Information Interpreted: non-clinical & clinical Forensic Dna Analyst: Forensic Dna Analyst Present (Cici MARR) Accompanied by: Self / Same As Patient Allergies Motrin Allergy (Unknown, Uncoded 09/06/23 13:14) Swelling Is last menstrual period known: Yes Last menstrual period: 08/15/23 HPI HPI Comments History of Present Illness Details Presenting for follow-up PID, the patient was admitted to the hospital with abdominal pain and was diagnosed with PID , she was given ceftriaxone 500 mg IM and was started on doxycycline and Flagyl p.o. and discharged home on 09/01. GC/chlamydia, BV panel and STD screen serology were all negative. Since then the patient is doing well, her abdominal/pelvic pain has improved but not completely resolved. No additional concerns PFSH Medical History Hypokalemia Hx of deep venous thrombosis Abdominal pain Endometriosis Surgical History (Updated 09/06/23 @ 13:17 by Cici Ocampo CMA) Hx of cholecystectomy Tubal ligation status Family History Mother Arthritis Maternal Grandmother Arthritis Mother Epilepsia Paternal Grandmother Cancer Social History (Updated 09/06/23 @ 13:18 by Cici Ocampo CMA) Household Members: Children Housing: House Do you presently have visiting nurse or other home services: No Alcohol intake: never Patient Tobacco Use Status: Never used Tobacco Tobacco use type: Cigarette Use of substances other than those prescribed or required for medical reasons: Yes Substance Use Type: Marijuana service: No Current occupational status: employed Current occupation: [employer] Sexually active: Yes Sexual orientation: Straight/Heterosexual Gender identity: Female Female Reproductive History Menstrual Duration of menses: 3-5 days Date of last menstrual period: 08/15/23 control method: permanent sterilization Review of Systems Const All systems reviewed & are unremarkable except as noted in HPI and below Physical Exam Vital Signs: Last Vital Signs BP 108/58 L 09/06/23 13:13 BMI result Body Mass Index 22.6 General: Yes no CVA tenderness External Female Exam: normal external appearance and normal appearance of the urethra Speculum Exam - Vagina: normal appearance of the vagina, normal palpation, no lesions and no masses Speculum Exam - Cervix: normal appearance of the cervix, normal palpation, no lesions, no masses and nontender Bimanual exam- vagina & uterus: normal bimanual exam, normal palpation, uterine size normal, normal palpation, uterine shape normal, No Cervical tenderness present and non-tender Bimanual Exam- Adnexa, other: normal adnexae Back/Spine/Pelvis Back: no CVA tenderness Assessment & Plan Assessment & Plan (1) PID (acute pelvic inflammatory disease): Code(s): N73.0 - Acute parametritis and pelvic cellulitis Plan: Recommend for the patient to continue both antibiotics, doxycycline and Flagyl till the end of the 14 day course . Instructions given the patient to call or go to emergency room in case of fever above 100.4, nausea or vomiting or heavy vaginal bleeding or worsening of her pain and to schedule a 2 week follow-up appointment. All questions answered, the patient verbalized understanding Coding Level of Care Code Est Pt Level 3 (09269) Diagnoses PID (acute pelvic inflammatory disease) N73.0
[2023-09-06 13:13] VITALS: BP 108/58; BMI 22.6
== END 2023-09-06 13:36 | disposition home or self-care (01) ==
PROVIDERS: PCP Internal Medicine; Visit Provider Obstetrics & Gynecology
DX: N73.0 Acute parametritis and pelvic cellulitis (principal)
CPT/HCPCS: 99213

== ENCOUNTER → 2023-09-06 13:05 | Outpatient (BNVA) | payer MEDICAID, SELFPAY | PROVIDERS: PCP Internal Medicine; Visit Provider Obstetrics & Gynecology | DX: N73.0 Acute parametritis and pelvic cellulitis (principal) | CPT/HCPCS: 99212 ==

== ENCOUNTER 2023-09-22 13:35 | Outpatient (AMB) | payer MEDICAID, SELFPAY ==
--- NOTE | 2023-09-22 13:38 | MHC.OFFVIS ---
Intake Vital Signs 09/22/23 13:41 Height 5 ft 7 in Weight 143 lb 4.807 oz BMI 22.4 BP 118/76 Intake Visit Reasons: 2 week follow up PID ok per liss Airframe Technical Officer Required: Yes Airframe Technical Officer Language: Gluing Machine Adjuster Name: Liss MARR Information Interpreted: non-clinical & clinical Accompanied by: Self / Same As Patient Allergies Motrin Allergy (Unknown, Uncoded 09/22/23 13:44) Swelling Is last menstrual period known: Yes Last menstrual period: 09/15/23 HPI HPI Comments History of Present Illness Details Presenting for a 2 week follow-up post PID treatment, finished antibiotic course, the patient's pelvic pain has resolved completely. Serology STD all negative The patient has been complaining of right-sided pelvic pain, cyclic in nature and gets worse premenstrual and during menstrual cycle and improves afterwards. Pelvic ultrasound done on 08/29/2023 showed the following: IMPRESSION: 1. No evidence of ovarian torsion. 2. The appendix is relatively unremarkable, upper limits of normal in size, without inflammatory change. Recommend correlation with clinical exam as well as CRP, WBC, etc. 3. Incidental note made of a 10 mm endometrial polyp. 4. Tubular structure medial to the right ovary could represent a small area of hydrosalpinx versus a small cyst. Ultrasound done in 2021 showed the right hydrosalpinx, , the patient did not have right-sided pelvic pain then [facility] Medical History Hypokalemia Hx of deep venous thrombosis Abdominal pain Endometriosis Surgical History Hx of cholecystectomy Tubal ligation status Family History Mother Arthritis Maternal Grandmother Arthritis Mother Epilepsia Paternal Grandmother Cancer Social History Household Members: Children Housing: House Do you presently have visiting nurse or other home services: No Alcohol intake: never Patient Tobacco Use Status: Never used Tobacco Tobacco use type: Cigarette Substance Use Type: Marijuana service: No Current occupational status: employed Current occupation: [employer] Sexual orientation: Straight/Heterosexual Gender identity: Female Female Reproductive History Menstrual Date of last menstrual period: 09/15/23 Review of Systems Const All systems reviewed & are unremarkable except as noted in HPI and below Reports as per HPI and Reports no additional complaints GI Reports no additional complaints Reports no additional complaints Physical Exam Vital Signs: Last Vital Signs BP 118/76 09/22/23 13:41 BMI result Body Mass Index 22.4 Assessment & Plan Assessment & Plan (1) PID (acute pelvic inflammatory disease): Comment: Resolved Code(s): N73.0 - Acute parametritis and pelvic cellulitis Plan: Instructions given the patient to call in case of recurrence of her pelvic pain, fever above 100.4, nausea or vomiting (2) Endometrial polyp: Code(s): N84.0 - Polyp of corpus uteri Plan: Discussed with the patient the finding on ultrasound showing possibility of endometrial polyp, recommended hysteroscopy D&C possible polypectomy/myomectomy. Since the patient on Xarelto will refer to a tertiary Center, [facility], where more resources all available. 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 [facility] Instructed the patient to call our office back in case a referral appointment is not scheduled, missed or canceled so that we will assist on rescheduling another appointment, the patient verbalized understanding agreed with the plan. Coding Level of Care Code Est Pt Level 3 (49164) Diagnoses PID (acute pelvic inflammatory disease) N73.0 Endometrial polyp N84.0 Hydrosalpinx N70.11 Endometriosis N80.9
[2023-09-22 13:41] VITALS: BP 118/76; BMI 22.4
== END 2023-09-22 16:20 | disposition home or self-care (01) ==
LOC: HO.HWS 13:35
PROVIDERS: PCP Internal Medicine; Visit Provider Obstetrics & Gynecology
DX: N73.0 Acute parametritis and pelvic cellulitis (principal); N84.0 Polyp of corpus uteri; N70.11 Chronic salpingitis; N80.9 Endometriosis, unspecified
CPT/HCPCS: 99213

== ENCOUNTER → 2023-09-22 13:35 | Outpatient (BNVA) | payer MEDICAID, SELFPAY | PROVIDERS: PCP Internal Medicine; Visit Provider Obstetrics & Gynecology | DX: N73.0 Acute parametritis and pelvic cellulitis (principal); N84.0 Polyp of corpus uteri; N70.11 Chronic salpingitis; N80.9 Endometriosis, unspecified | CPT/HCPCS: 99212 ==

== ENCOUNTER 2023-09-29 12:56 | Outpatient (REF) | payer MEDICAID, SELFPAY ==
--- NOTE | ~2023-09-29 | US_ITS ---
EXAMINATION: US PELVIS CLINICAL INFORMATION: Worsening right lower quadrant pain with known right tubal lesion. COMPARISON: Ultrasound pelvis and transvaginal 08/29/2023. TECHNIQUE: Ultrasound of the pelvis is performed using both transabdominal and transvaginal transducers along with Doppler. Transvaginal imaging is performed due to inadequate visualization transabdominally. FINDINGS: Uterus: The uterus is anteverted, anteflexed and measures 10.4 x 5.8 x 6.8 cm. The double wall endometrial thickness is 1.1 cm and normal. Previously seen endometrial polyp is not visualized. The uterus is smooth in contour and has normal myometrial echogenicity. No visible fibroid. There is minimal fluid in the cervix. Adnexa: Both ovaries are visualized. There is normal color flow to the adnexa. There is no ovarian torsion. There is no pelvic ascites or fluid collection. Right ovary measures 3.5 x 1.6 x 2.0 cm. Volume 5.9 mL. It appears unremarkable. Previously right ovary measured 4.6 x 1.5 x 1.9 cm and volume 6.9 mL. Previously questioned tubular structure adjacent to right ovary is not visualized at this time. Left ovary measures 3.6 x 2.2 x 2.4 cm. Volume 10.0 mL. Appears unremarkable. Previously left ovary measured 2.5 x 2.6 x 3.0 cm and volume 14.3 mL. There is small amount of free fluid in cul-de-sac. US/US pelvic and transvaginal IMPRESSION: No endometrial polyp seen on this exam. The uterus is unremarkable. No tubular structure seen in the right adnexa adjacent ovary. Both ovaries and the uterus are unremarkable. There is small amount of free fluid in the pelvis likely physiological.
[2023-09-29 18:09] LABS: Appearance Urine Clear; Color Urine Yellow; Glucose Urine UA Negative (Negative); Leukocyte Esterase Urine Negative (Negative); Nitrite Urine Negative (Negative); PH 6.5 (5.0-9.0); Specific Gravity - Urine 1.015 (1.005-1.025); Urine Blood Negative (Negative); Urine Ketones Negative (Negative); Urine Protein Negative (Neg-Trace)
[2023-09-29 18:14] LABS: Bacteria Urine None Seen (None Seen); Hyaline Casts Urine 0-2 /LPF (0-2); RBC Urine 0-2 /HPF (0-2); WBC Urine 0-5 /HPF (0-5)
[2023-10-01 19:58] LABS: C. trachomatis RNA TMA NOT DETECTED (NOT DETECTED); N. gonorrhoeae RNA TMA NOT DETECTED (NOT DETECTED)
== END 2023-09-29 12:57 | disposition home or self-care (01) ==
LOC: HO.US 12:56
PROVIDERS: PCP Internal Medicine; Visit Provider Student in an Organized Health Care Education/Training Program
DX: R10.2 Pelvic and perineal pain (principal)
CPT/HCPCS: 36415; 76830; 76856; 81001; 81513; 87491; 87591

== ENCOUNTER 2023-10-04 11:24 | Outpatient (REF) | payer MEDICAID, SELFPAY ==
[2023-10-04 13:15] LABS: MANUAL DIFF FLAG NO
[2023-10-04 13:38] LABS: Basophils Percent Auto 0.4 % (0-2); Eosinophils Absolute Auto 0.2 X10*3/uL (0.0-0.4); Eosinophils Percent Auto 2.1 % (0-4); Hematocrit 40.4 % (37.0-47.0); Hemoglobin 13.2 g/dl (12.0-16.0); Imm Gran Abs Auto 0.05 X10*3/uL (0.00-0.03); Imm Gran Pct Auto 0.7 % (0.0-0.4); Lymphocytes Absolute Auto 2.2 X10*3/uL (1.2-4.9); Lymphocytes Percent Auto 29.7 % (20-40); Mean Corpuscular HGB Conc 32.7 g/dl (31.0-35.0); Mean Corpuscular Hemoglobin 29.1 pg (27.0-33.0); Mean Corpuscular Volume 89.2 fL (80.0-98.0); Mean Platelet Volume 11.5 fL (9.4-12.3); Monocytes Absolute Auto 0.4 X10*3/uL (0.1-1.2); Monocytes Percent Auto 5.4 % (2-11); Neutrophils Absolute Auto 4.6 x10*3/uL (2.0-8.3); Neutrophils Percent Auto 61.7 % (45-73); Platelet Count 257 X10*3/uL (160-400); Red Blood Count 4.53 X10*6/uL (4.20-5.50); Red Cell Distribution Width 12.9 % (11.0-16.0); White Blood Count 7.5 X10*3/uL (4.8-10.8)
[2023-10-04 13:57] LABS: Anion Gap 10 (12-20); Blood Urea Nitrogen 6 mg/dL (9-16); Calcium 9.5 mg/dL (8.4-10.2); Carbon Dioxide 26 mmol/L (22-29); Chloride 106 mmol/L (96-108); Estimated Glomerular Filt Rate > 60; Glucose Random 126 mg/dL (60-115); Potassium 3.8 mmol/L (3.3-5.1); Sodium 138 mmol/L (135-145); TSH reflex Free T4 0.48 uIU/mL (0.32-4.0); Vitamin D 25-OH Total 10.3 ng/mL (>30)
== END 2023-10-04 11:25 | disposition home or self-care (01) ==
LOC: HO.HHCL 11:24
PROVIDERS: Visit Provider Internal Medicine
DX: R10.2 Pelvic and perineal pain (principal); F33.1 Major depressive disorder, recurrent, moderate
CPT/HCPCS: 36415; 80048; 82306; 84443; 85025

== ENCOUNTER 2023-10-24 13:24 | Outpatient (AMB) | payer MEDICAID, SELFPAY ==
--- NOTE | 2023-10-24 13:39 | A.OFFVIS_ITS ---
Intake Vital Signs 10/24/23 13:43 Height 5 ft 7 in Weight 152 lb 6 oz BMI 23.9 BP 107/59 L Blood Pressure Location Lt brachial Position Sitting Pulse 67 Intake Visit Reasons: appendicitis Intake Note: Patient is seen in office for ER follow up visit, following appendicitis. Pt c/o: admits to increase pain followed by nausea, pain worse after meals, some diarrhea, had ultrasound done at emergency room Glass Vial Bending Conveyor Feeder Required: No Accompanied by: Daughter Allergies Motrin Allergy (Unknown, Uncoded 10/24/23 13:44) Swelling Medication List - Last Reconciled 10/24/23 by Wiliam Ureña MD kghxydkdtz-jtpojgdyhxkjd-zkww 50-325-40 mg 1 tab PO TID PRN hydrochlorothiazide 12.5 mg PO DAILY rivaroxaban (Xarelto) 1 tab PO QPM sertraline 50 mg PO DAILY HPI appendicitis HPI Details 38-year-old female here for follow-up. I had admitted her to the hospital last 08/29/2023 due to right lower quadrant pain with question of acute appendicitis. However, this turned out to be from PID and she had some vaginal discharge as well. She is being followed by Dr. Valderrama. She had been treated with antibiotics. She says she feels better. She also says that she was referred by Dr. Valderrama to another radiation officer in [place]. [facility] Medical History Hypokalemia Hx of deep venous thrombosis Abdominal pain Endometriosis Surgical History Hx of cholecystectomy Tubal ligation status Family History Mother Arthritis Maternal Grandmother Arthritis Mother Epilepsia Paternal Grandmother Cancer Social History Household Members: Children Housing: House Do you presently have visiting nurse or other home services: No Alcohol intake: never Patient Tobacco Use Status: Never used Tobacco Tobacco use type: Cigarette Substance Use Type: Marijuana service: No Current occupational status: employed Current occupation: [employer] Sexual orientation: Straight/Heterosexual Gender identity: Female Review of Systems Const Denies chills and Denies fever(s) Card Denies chest pain, Denies dyspnea and Denies dyspnea on exertion Resp Denies cough, Denies dyspnea and Denies dyspnea on exertion GI Denies hematochezia and Denies change in bowel habits Denies hematuria Musc Denies back pain and Denies limited range of motion Neuro Denies focal weakness and Denies convulsions Psych Denies depression and Denies mood swings Physical Exam Vital Signs: Last Vital Signs Pulse 67 10/24/23 13:43 BP 107/59 L 10/24/23 13:43 BMI result Body Mass Index 23.9 Const General: comfortable and no acute distress Orientation/consciousness: patient oriented x3 Neck Neck: Yes no lymphadenopathy Resp Auscultation: clear to auscultation bilaterally Cardio Rhythm: regular rhythm GI Palpation (GI): Soft to palpation, nontender and no guarding Neuro General: patient oriented x3 Assessment & Plan Assessment & Plan (1) Abdominal pain: Comment: Possible PID Code(s): R10.9 - Unspecified abdominal pain Plan: Her abdominal pain has resolved. This was unlikely to be acute appendicitis. She was diagnosed to have PID at that time and had undergone treatment with Dr. Valderrama. She also was diagnosed to have endometriosis. I told her that she does not need to undergo appendectomy. She can follow up with me on a p.r.n. basis. She is to continue to follow-up with the radiation officer service as well. Coding Level of Care Code Est Pt Level 2 (19818) Diagnoses Abdominal pain R10.9
[2023-10-24 13:43] VITALS: BP 107/59; PULSE 67; BMI 23.9
== END 2023-10-24 14:01 | disposition home or self-care (01) ==
PROVIDERS: PCP Internal Medicine; Visit Provider Surgery
DX: R10.9 Unspecified abdominal pain (principal)
CPT/HCPCS: 99212

== ENCOUNTER → 2023-10-24 13:24 | Outpatient (BNVA) | payer MEDICAID, SELFPAY | PROVIDERS: PCP Internal Medicine; Visit Provider Surgery | DX: R10.9 Unspecified abdominal pain (principal); N73.9 Female pelvic inflammatory disease, unspecified; N80.9 Endometriosis, unspecified | CPT/HCPCS: 99212 ==

== ENCOUNTER 2023-11-15 10:42 | Emergency (ER) | payer MEDICAID, SELFPAY ==
[2023-11-15 10:53] VITALS: BP 122/80; PULSE 62; RESP 18; TEMP 36.9; O2SAT 100; BMI 23.8
[2023-11-15 11:04] LABS: MANUAL DIFF FLAG NO
[2023-11-15 11:12] LABS: Basophils Percent Auto 0.4 % (0-2); Hematocrit 33.7 % (37.0-47.0); Hemoglobin 11.6 g/dl (12.0-16.0); Imm Gran Abs Auto 0.02 X10*3/uL (0.00-0.03); Imm Gran Pct Auto 0.2 % (0.0-0.4); Lymphocytes Absolute Auto 1.7 X10*3/uL (1.2-4.9); Lymphocytes Percent Auto 20.4 % (20-40); Mean Corpuscular HGB Conc 34.4 g/dl (31.0-35.0); Mean Corpuscular Hemoglobin 29.9 pg (27.0-33.0); Mean Corpuscular Volume 86.9 fL (80.0-98.0); Mean Platelet Volume 10.6 fL (9.4-12.3); Monocytes Absolute Auto 0.5 X10*3/uL (0.1-1.2); Monocytes Percent Auto 6.5 % (2-11); Neutrophils Percent Auto 72.5 % (45-73); Platelet Count 238 X10*3/uL (160-400); Red Blood Count 3.88 X10*6/uL (4.20-5.50); Red Cell Distribution Width 12.4 % (11.0-16.0); White Blood Count 8.3 X10*3/uL (4.8-10.8)
[2023-11-15 11:34] LABS: Alanine Aminotransferase 15 U/L (0-31); Albumin Level 4.2 g/dL (3.5-5.0); Alkaline Phosphatase 68 U/L (39-117); Anion Gap 11 (12-20); Aspartate Amino Transferase 17 U/L (5-31); Bilirubin Total 0.4 mg/dL (0.0-1.0); Blood Urea Nitrogen 7 mg/dL (9-16); Calcium 8.9 mg/dL (8.4-10.2); Carbon Dioxide 24 mmol/L (22-29); Chloride 106 mmol/L (96-108); Creatinine Clr Calc Pharmacy 109.6; Estimated Glomerular Filt Rate > 60; Glucose Random 102 mg/dL (60-115); Potassium 3.1 mmol/L (3.3-5.1); Sodium 138 mmol/L (135-145); Total Protein 6.8 g/dL (6.5-8.0)
--- NOTE | 2023-11-15 13:01 | ED_ITS ---
HPI - Dental/Oral General Chief complaint: Dental/Oral Stated complaint: l sided ear and jaw pain Time Seen by Provider: 11/15/23 12:59 Source: patient Mode of arrival: ambulatory Limitations: no limitations History of Present Illness HPI Narrative: 38-year-old female with a history of right lower extremity DVT on Xarelto, poor dentition, PID, dysmenorrhea, HTN, endometriosis, hydrosalpinx who presents to the ER for evaluation of left upper molar pain for the last 2 or 3 days. She states she has several broken teeth in that area that have been bothering her more than usual. She states she was not able to eat yesterday due to pain. She feels like her face on the left side is starting to get swollen, the pain radiates into the ear and jaw. She took Tylenol every 5 hours yesterday with no improvement. She has partial retainers from 8 years ago when she had several teeth extracted. She states she took Flagyl from home without any improvement in her symptoms MD Complaint: tooth pain Location: Tooth # (14-16) Onset (ago): day(s) Duration: constant Severity: severe Severity scale (1-10): 10 Relieving factors: nothing Exacerbating factors: chewing, cold and heat Context: history of dental caries and poor dental care Associated symptoms: ear pain Treatment prior to arrival: oral analgesic Related Data Home Medications ?Medication ?Instructions ?Recorded ?Confirmed domlrjftxh-bcuiepdhnqvoi-tipintqv 1 tab PO TID PRN migraine 07/08/20 10/24/23 50 mg-325 mg-40 mg tablet hydrochlorothiazide 12.5 mg capsule 12.5 mg PO DAILY 07/08/20 10/24/23 sertraline 50 mg tablet 50 mg PO DAILY 07/08/20 10/24/23 rivaroxaban 20 mg tablet (Xarelto) 1 tab PO QPM 06/09/22 10/24/23 Previous Rx's ?Medication ?Instructions ?Recorded amoxicillin 875 mg-potassium 1 tab PO BID #20 tabs 11/15/23 clavulanate 125 mg tablet tramadol 50 mg tablet 50 mg PO BID PRN pain #6 tabs 11/15/23 Allergies Allergy/AdvReac Type Severity Reaction Status Date / Time Motrin Allergy Unknown Swelling Uncoded 11/15/23 10:57 Review of Systems 2 Review of Systems: Yes all other systems are reviewed and are negative PMFSH Past Medical History Medical History Hypokalemia Hx of deep venous thrombosis Abdominal pain Endometriosis Surgical History Hx of cholecystectomy Tubal ligation status Family History Family History Mother Arthritis Maternal Grandmother Arthritis Mother Epilepsia Paternal Grandmother Cancer Social History Social History Household Members: Children Housing: House Do you presently have visiting nurse or other home services: No Alcohol intake: never Patient Tobacco Use Status: Never used Tobacco Tobacco use type: Cigarette Smoked in Last 30 Days: No Use of substances other than those prescribed or required for medical reasons: Yes Substance Use Type: Marijuana Advance Directives: No Advance Directives Information Provided: Yes service: No Current occupational status: employed Current occupation: [employer] Sexual orientation: Straight/Heterosexual Gender identity: Female Physical Exam 2 Vital Signs: Vital Signs: Last Vital Signs Temp 98.4 F 11/15/23 13:56 Pulse 62 11/15/23 13:56 Resp 18 11/15/23 13:56 BP 122/80 11/15/23 13:56 Pulse Ox 100 11/15/23 13:56 O2 Del Method Room Air 11/15/23 13:56 BMI result Body Mass Index 23.8 Appearance: Alert. Oriented X3. No acute distress. Head/face: normocephalic, atraumatic. minimal left maxillary facial swelling. Eyes: Pupils equal, round and reactive to light. ENT: Pharynx normal. No tonsillar swelling or exudate. poor dentition multiple cracked and decayed teeth, left upper molars are all decayed w/ associated gingival tenderness, no fluctance. no trismus Neck: Normal inspection. Neck supple. no swelling. CVS: Normal heart rate and rhythm. Respiratory: No respiratory distress. Skin: Skin warm and dry. Normal skin color. Normal skin turgor. No rashes. Extremities: No lower extremity edema. No joint swelling. Neuro/psych: Oriented X 3. Medications Administered Discontinued Medications Generic Name Dose Route Start Last Admin Trade Name Freq PRN Reason Stop Dose Admin Acetaminophen 975 mg 11/15/23 13:09 11/15/23 13:43 Acetaminophen 325 Mg Tablet PO 11/15/23 13:10 975 mg ONCE ONE Administration Oxycodone HCl 5 mg 11/15/23 13:11/15/23 13:43 Oxycodone Hcl Immed Release 5 Mg Tablet PO 11/15/23 13:10 5 mg ONCE ONE Administration Medical Decision Making Medical Decision Making [facility] Narrative: 78-year-old female with history of DVT on Xarelto presenting to the ER for evaluation of left upper molar pain for the last 2 or 3 days. Pain is now severe, unable to eat. She has no trismus on examination, no anterior neck swelling. She is handling her secretions normally. she has multiple broken and decayed teeth. possible early infection vs abscess forming in her left upper molar area - will start abx and pain control. cannot take nsaids as she is on xarelto for DVT. she was given dental clinics list and oral surgeon information. stable for d/c with outpatient dental follow up. return precautions discussed Differential Diagnosis Differential Diagnoses: The differential diagnosis associated with the presentation includes toothache, fracture tooth, dental abscess, Al's angina Lab Data [facility] Lab Attestation statement: I reviewed the patient's lab results. no leukocytosis 11/15/23 11:02 11/15/23 11:02 Labs: Lab Results 11/15/23 Range/Units 11:02 WBC 8.3 (4.8-10.8) X10*3/uL RBC 3.88 L (4.20-5.50) X10*6/uL Hgb 11.6 L (12.0-16.0) g/dl Hct 33.7 L (37.0-47.0) % MCV 86.9 (80.0-98.0) fL MCH 29.9 (27.0-33.0) pg MCHC 34.4 (31.0-35.0) g/dl RDW 12.4 (11.0-16.0) % Plt Count 238 (160-400) X10*3/uL MPV 10.6 (9.4-12.3) fL Immature Gran % (Auto) 0.2 (0.0-0.4) % Neut % (Auto) 72.5 (45-73) % Lymph % (Auto) 20.4 (20-40) % Wise % (Auto) 6.5 (2-11) % Eos % (Auto) 0.0 (0-4) % Baso % (Auto) 0.4 (0-2) % Lymph # (Auto) 1.7 (1.2-4.9) X10*3/uL Wise # (Auto) 0.5 (0.1-1.2) X10*3/uL Eos # (Auto) 0.0 (0.0-0.4) X10*3/uL Baso # (Auto) 0.0 (0.0-0.2) X10*3/uL Abs Immat Gran (auto) 0.02 (0.00-0.03) X10*3/uL Absolute Neuts (auto) 6.0 (2.0-8.3) x10*3/uL Absolute Nucleated RBC 0.000 (0.0-0.012) X10*3/uL Nucleated RBC % (auto) 0.0 (0.0-0.2) /100WBC Sodium 138 (135-145) mmol/L Potassium 3.1 L (3.3-5.1) mmol/L Chloride 106 (96-108) mmol/L Carbon Dioxide 24 (22-29) mmol/L Anion Gap 11 L (12-20) BUN 7 L (9-16) mg/dL Creatinine 0.69 (0.5-1.4) mg/dL Estim Creat Clear Calc 109.6 Estimated GFR > 60 Random Glucose 102 (60-115) mg/dL Calcium 8.9 D (8.4-10.2) mg/dL Total Bilirubin 0.4 (0.0-1.0) mg/dL AST 17 (5-31) U/L ALT 15 (0-31) U/L Alkaline Phosphatase 68 (39-117) U/L Total Protein 6.8 (6.5-8.0) g/dL Albumin 4.2 (3.5-5.0) g/dL External Record Review External record reviewed: Outpatient record and Prior outpatient labs Tests considered The following testing was considered but not selected: CT facial bones considered but no obvious abscess on exam Prescription Management I considered prescription management with: Pain Medication and Antibiotic Critical Care Time Critical Care Time Critical Care Time: No Discharge Plan Discharge Clinical Impression: Toothache Fracture of tooth Qualifiers: Encounter type: initial encounter Fracture type: closed Qualified Code(s): S 02.5XXA - Fracture of tooth (traumatic), initial encounter for closed fracture Patient Disposition: Home, Self-Care Instructions: Toothache (ED), Tooth Extraction (DC) Additional Instructions: Recommend following up with a dentist and oral surgeon as soon as possible. You can call [facility] at [facility] to [facility] in [facility] [phone] Take the prescribed antibiotics as directed, complete the entire course and do not miss any doses Take the prescribed pain medication as needed for severe pain only. Do not drive after taking this medication. If you develop new or worsening symptoms call 911 or come back to the ER for further evaluation. Prescriptions: New amoxicillin-pot clavulanate 875-125 mg tablet 1 tab PO BID Qty: 20 0RF tramadol 50 mg tablet 50 mg PO BID PRN (Reason: pain) Qty: 6 0RF No Action Xarelto 20 mg tablet 1 tab PO QPM [id number]-gkpgcnpdutedl-tfoq 50-325-40 mg tablet 1 tab PO TID PRN (Reason: migraine) sertraline 50 mg tablet 50 mg PO DAILY hydrochlorothiazide 12.5 mg capsule 12.5 mg PO DAILY Referrals: Kelsey Huggins MD [Primary Care Provider] - Interventions: ED Discharge Assessment Last Done: 11/15/23 13:56 Discharge Date/Time: 11/15/23 13:55 Print Language: Angolan
[2023-11-15] MEDS: oxyCODONE HCl Immed Release 5 MG TABLET PO (13:43)
[2023-11-15] MEDS: Acetaminophen 325 MG TABLET 975 MG PO (13:43)
[2023-11-15 13:56] VITALS: BP 122/80; PULSE 62; RESP 18; TEMP 36.9; O2SAT 100
== END 2023-11-15 13:55 | disposition home or self-care (01) ==
PROVIDERS: Emergency Provider Emergency Medicine; PCP Internal Medicine
DX: K08.89 Other specified disorders of teeth and supporting structures (principal); S02.5XXA Fracture of tooth (traumatic), initial encounter for closed fracture; X58.XXXA Exposure to other specified factors, initial encounter; Y93.9 Activity, unspecified; Y92.9 Unspecified place or not applicable; Y99.9 Unspecified external cause status; H92.02 Otalgia, left ear; I82.402 Acute embolism and thrombosis of unspecified deep veins of left lower extremity; Z79.01 Long term (current) use of anticoagulants; Z79.899 Other long term (current) drug therapy
CPT/HCPCS: 36415; 80053; 85025; 99283; 99284

== ENCOUNTER 2024-01-22 07:44 | Emergency (ER) | payer MEDICAID, SELFPAY ==
--- NOTE | ~2024-01-22 | US_ITS ---
EXAMINATION: US PELVIS CLINICAL INFORMATION: Lower abdominal pain COMPARISON: CT abdomen and pelvis with contrast done earlier on the same date. Pelvic ultrasound 08/29/2023 TECHNIQUE: Ultrasound of the pelvis is performed using transabdominal transducers along with Doppler. Technologist notes: Patient refused transvaginal imaging. FINDINGS: Uterus: The uterus is anteverted, anteflexed and measures 9.9 x 4.9 x 5.6 cm. No focal myometrial lesions. The endometrial thickness is within normal limits measuring 0.4 cm. Adnexa: Both ovaries are visualized. The right ovary measures 2.8 x 2.1 x 2.2 cm with a volume of 7 mL and appears unremarkable. The left ovary measures 3.1 x 1.8 x 1.8 cm with a volume of 5 mL and appears unremarkable. Doppler evaluation demonstrates normal arterial and venous waveforms. Small amount of free fluid is noted within the left adnexa. US/US pelvic complete IMPRESSION: 1. Unremarkable sonographic appearance of the uterus and bilateral ovaries. 2. Comment of free fluid in the left adnexa which may be physiologic.
--- NOTE | ~2024-01-22 | US_ITS ---
EXAMINATION: US PELVIS CLINICAL INFORMATION: Lower abdominal pain COMPARISON: CT abdomen and pelvis with contrast done earlier on the same date. Pelvic ultrasound 08/29/2023 TECHNIQUE: Ultrasound of the pelvis is performed using transabdominal transducers along with Doppler. Technologist notes: Patient refused transvaginal imaging. FINDINGS: Uterus: The uterus is anteverted, anteflexed and measures 9.9 x 4.9 x 5.6 cm. No focal myometrial lesions. The endometrial thickness is within normal limits measuring 0.4 cm. Adnexa: Both ovaries are visualized. The right ovary measures 2.8 x 2.1 x 2.2 cm with a volume of 7 mL and appears unremarkable. The left ovary measures 3.1 x 1.8 x 1.8 cm with a volume of 5 mL and appears unremarkable. Doppler evaluation demonstrates normal arterial and venous waveforms. Small amount of free fluid is noted within the left adnexa. US/US pelvic ovarian doppler IMPRESSION: 1. Unremarkable sonographic appearance of the uterus and bilateral ovaries. 2. Comment of free fluid in the left adnexa which may be physiologic.
--- NOTE | ~2024-01-22 | CT_ITS ---
EXAMINATION: CT ABDOMEN AND PELVIS WITH CONTRAST CLINICAL INFORMATION: Right-sided abdominal pain. Nausea. Vomiting. COMPARISON: Most recent pelvic ultrasound dated 09/29/[address] abdomen/pelvis dated 08/29/2023. TECHNIQUE: Multidetector volumetric images were obtained from the superior aspect of the liver through the pubic symphysis following administration 85 mL of Omnipaque 350 intravenous contrast. Sagittal and coronal reformatted images were obtained on the technologist's workstation. Oral contrast: No. This CT examination was performed using dose optimization techniques as appropriate, variously including the following: *Automated exposure control *Adjustment of mA and/or kV according to patient size (this includes techniques or standardized protocols for targeted exams where dose is matched to indication/reason for exam; i.e. extremities or head) *Use of iterative reconstruction technique DLP: 508 mGy-cm FINDINGS: LUNG BASES: The visualized lung bases are unremarkable. LIVER, GALLBLADDER, AND BILIARY TREE: The liver is normal in size, shape, and attenuation. No focal hepatic lesion or biliary ductal dilatation is present. Status post cholecystectomy. PANCREAS: Unremarkable. SPLEEN: Unremarkable. ADRENAL GLANDS: Unremarkable. KIDNEYS AND URETERS: The kidneys are normal in size, shape, and attenuation. Tiny bilateral renal calcifications are redemonstrated. There is increase in prominence of bilateral renal densities which could represent increasing renal stones versus early contrast excretion. No obstructing renal or ureteral stone. No hydronephrosis or hydroureter. No perinephric stranding. BLADDER: Tiny focus of dependent air within the urinary bladder which could be related to recent instrumentation. Alternatively, findings could represent an infectious or inflammatory process. Correlate for recent instrumentation. GASTROINTESTINAL TRACT: Circumferential bowel wall thickening within a pelvic small bowel loop with adjacent stranding, consistent with acute ileitis. No extraluminal air or organized fluid collection to suggest perforation or abscess formation. Findings are new when compared to the prior examination. No small or large bowel obstruction. Unremarkable appendix. PERITONEAL CAVITY: Trace pelvic free fluid. No organized fluid collection or abscess formation. No intra-abdominal free air. ABDOMINAL WALL: No significant hernia is appreciated. LYMPH NODES: No significant lymphadenopathy. VASCULAR: Unremarkable. PELVIC VISCERA: Mild prominence of the uterus which may represent normal variation. An underlying infectious or inflammatory process could be considered in the appropriate clinical setting. OSSEOUS STRUCTURES: Unremarkable. CT/CT abdomen pelvis w IV con IMPRESSION: 1. Circumferential bowel wall thickening within a pelvic small bowel loop with adjacent stranding, consistent with acute ileitis. No evidence of perforation or abscess formation. Findings are new when compared to the prior examination. No small or large bowel obstruction. Unremarkable appendix. 2. Trace pelvic free fluid. No organized fluid collection or abscess formation. No intra-abdominal free air. 3. Mild prominence of the uterus which may represent normal variation. An underlying infectious or inflammatory process could be considered in the appropriate clinical setting. 4. Tiny focus of dependent air within the urinary bladder which could be related to recent instrumentation. Alternatively, findings could represent an infectious or inflammatory process. 5. Tiny bilateral renal calcifications are redemonstrated. Increased prominence of bilateral renal densities which could represent increasing renal stones versus early contrast excretion. No obstructing renal or ureteral stone. No hydronephrosis or hydroureter. Fleischner guidelines were followed.
[2024-01-22 07:45] VITALS: BP 112/88; PULSE 100; RESP 19; TEMP 36.6; O2SAT 98; BMI 23.5
[2024-01-22 08:39] LABS: MANUAL DIFF FLAG NO
[2024-01-22] MEDS: ondansetron HCL 4 MG/2 ML VIAL IVPUSH (08:44)
[2024-01-22 08:58] LABS: Basophils Percent Auto 0.5 % (0-2); Hematocrit 38.8 % (37.0-47.0); Hemoglobin 13.4 g/dl (12.0-16.0); Imm Gran Abs Auto 0.02 X10*3/uL (0.00-0.03); Imm Gran Pct Auto 0.3 % (0.0-0.4); Lymphocytes Absolute Auto 0.5 X10*3/uL (1.2-4.9); Lymphocytes Percent Auto 6.6 % (20-40); Mean Corpuscular HGB Conc 34.5 g/dl (31.0-35.0); Mean Corpuscular Hemoglobin 29.3 pg (27.0-33.0); Mean Corpuscular Volume 84.9 fL (80.0-98.0); Mean Platelet Volume 10.5 fL (9.4-12.3); Monocytes Absolute Auto 0.3 X10*3/uL (0.1-1.2); Neutrophils Absolute Auto 6.9 x10*3/uL (2.0-8.3); Neutrophils Percent Auto 88.6 % (45-73); Platelet Count 221 X10*3/uL (160-400); Red Blood Count 4.57 X10*6/uL (4.20-5.50); Red Cell Distribution Width 12.7 % (11.0-16.0); White Blood Count 7.8 X10*3/uL (4.8-10.8)
[2024-01-22 09:00] LABS: Alanine Aminotransferase 20 U/L (0-31); Albumin Level 4.5 g/dL (3.5-5.0); Alkaline Phosphatase 77 U/L (39-117); Anion Gap 15 (12-20); Aspartate Amino Transferase 22 U/L (5-31); Bilirubin Total 0.4 mg/dL (0.0-1.0); Blood Urea Nitrogen 10 mg/dL (9-16); Calcium 9.8 mg/dL (8.4-10.2); Carbon Dioxide 21 mmol/L (22-29); Chloride 108 mmol/L (96-108); Creatinine Clr Calc Pharmacy 93.3; Estimated Glomerular Filt Rate > 60; Glucose Random 182 mg/dL (60-115); Magnesium 1.5 mg/dL (1.6-2.6); Potassium 3.4 mmol/L (3.3-5.1); Sodium 141 mmol/L (135-145); Total Protein 7.7 g/dL (6.5-8.0)
[2024-01-22 09:01] VITALS: BP 130/83; PULSE 58; RESP 16; TEMP 36.7; O2SAT 100
--- NOTE | 2024-01-22 09:03 | ED_ITS ---
HPI - General Adult General Chief complaint: Nausea/Vomiting/Diarrhea Stated complaint: vomitting, weakness Time Seen by Provider: 01/22/24 07:52 Source: patient and family Mode of arrival: ambulatory Limitations: no limitations History of Present Illness ED Provider: Joselo DOHERTY HPI narrative: 38-year-old female history of hypertension, endometriosis, dysmenorrhea, DVT on Xarelto, PID, hydrosalpinx, presenting to the emergency department with complaints of nausea, vomiting, diarrhea and diffuse abdominal pain however worse in the right upper quadrant that started this morning when she awoke. Patient reports severe constant pain in the right upper quadrant she does report history of cholecystectomy. She reports she feels terrible. Denies any new eating habits. No sick contacts. Denies fevers, chills, chest pain, shortness of breath, hematemesis, hematochezia, melena, weakness. Related Data Home Medications ?Medication ?Instructions ?Recorded ?Confirmed vajakikqzb-nacxejcwbohku-yljbachx 1 tab PO TID PRN migraine 07/08/20 10/24/23 50 mg-325 mg-40 mg tablet hydrochlorothiazide 12.5 mg capsule 12.5 mg PO DAILY 07/08/20 10/24/23 sertraline 50 mg tablet 50 mg PO DAILY 07/08/20 10/24/23 rivaroxaban 20 mg tablet (Xarelto) 1 tab PO QPM 06/09/22 10/24/23 Previous Rx's ?Medication ?Instructions ?Recorded amoxicillin 875 mg-potassium 1 tab PO BID #20 tabs 11/15/23 clavulanate 125 mg tablet tramadol 50 mg tablet 50 mg PO BID PRN pain #6 tabs 11/15/23 cefuroxime axetil 250 mg tablet 250 mg PO BID 7 days #14 tabs 01/22/24 ondansetron 4 mg disintegrating 4 mg PO Q6H PRN nausea and 01/22/24 tablet vomiting #14 tabs Allergies Allergy/AdvReac Type Severity Reaction Status Date / Time No Known Allergies Allergy Verified 01/22/24 07:49 Review of Systems 2 Review of Systems: Yes all other systems are reviewed and are negative PMFSH Past Medical History Attestation statement: The following information was validated with the patient. Source: old records reviewed and nursing notes reviewed Medical History Hypokalemia Hx of deep venous thrombosis Abdominal pain Endometriosis Surgical History Hx of cholecystectomy Tubal ligation status Family History Family History Mother Arthritis Maternal Grandmother Arthritis Mother Epilepsia Paternal Grandmother Cancer Social History Social History Household Members: Children Housing: House Do you presently have visiting nurse or other home services: No Alcohol intake: never Patient Tobacco Use Status: Never used Tobacco Tobacco use type: Cigarette Smoked in Last 30 Days: Yes Use of substances other than those prescribed or required for medical reasons: No Substance Use Type: Marijuana Advance Directives: No Advance Directives Information Provided: Yes Patient : No service: No Current occupational status: employed Current occupation: [employer] Sexual orientation: Straight/Heterosexual Gender identity: Female Physical Exam ED Vital Signs: Vital Signs - 24 hr 01/22/24 07:45 01/22/24 09:01 01/22/24 11:00 Temperature 98 F 98.0 F Pulse Rate 100 58 58 Respiratory Rate 19 16 14 Blood Pressure 112/88 130/83 128/74 Pulse Oximetry 98 100 100 Oxygen Delivery Method Room Air Room Air Room Air 01/22/24 13:59 Temperature 98.1 F Pulse Rate 66 Respiratory Rate 16 Blood Pressure 98/48 L Pulse Oximetry 100 Oxygen Delivery Method Room Air BMI result Body Mass Index 23.5 vss Appearance: Alert.? Oriented X3.? No acute distress.? Head: Normocephalic, atraumatic, no step-offs or deformities Eyes: Pupils equal, round and reactive to light.? CVS: Normal heart rate and rhythm.? Pulses normal.? Respiratory: No respiratory distress.? Breath sounds normal.? Abdomen: Soft and + RUQ tenderness .? Skin: Skin warm and dry.? Normal skin color.? Normal skin turgor.? Extremities: No lower extremity edema.? No calf ttp. 5/5 strength to bilateral upper and lower extremities Neuro: Oriented X 3.? No motor deficit.? No sensory deficit. CN 2-12 intact Course Course Course Narrative: This case was discussed with my attending who agrees with diagnosis and treatment plan Reevaluation(s) Reevaluation #1: CBC unremarkable. Chemistry no acute findings requiring intervention. Magnesium 1.5 will give oral Mag at this time. No other electrolyte abnormalities needing intervention. Negative beta hCG. UA and CT scan pending. Patient reporting worsening nausea, Compazine ordered. Time: 09:42 Reevaluation #2: UA with 1+ bacteria and trace leukocyte esterases will treat for UTI. CT abdomen pelvis circumferential bowel wall thickening consistent with acute ileitis. No evidence of perforation or abscess. These are new findings. Unremarkable appendix. Trace pelvic free fluid, no intra-abdominal free air or fluid collection or abscess. Mild prominence of the uterus however patient not complaining of pelvic pain or discharge. Air within the urinary bladder could be secondary to cystitis/UTI. Tiny bilateral renal calcifications redemonstrated. Patient tolerating p.o. feeling better. Pelvic ultrasound is pending. As long as this is normal plan is for patient to be discharged home with PCP follow-up. Time: 14:42 Reevaluation #3: Upon re-evaluation pain patient feeling better. Would like to go home. When ultrasound is back patient can likely be discharged. Time: 15:11 Additional Reevaluation(s): Ultrasound pelvic with unremarkable sonographic appearance of the uterus and bilateral ovaries. Free fluid in the left adnexa likely physiologic. Normal flow bilaterally. At this time plan is for discharge home. Educated patient on diagnosis and treatment plan, answered all question, patient verbalizes understanding. At this time patient will be discharged home, advised to return with new or worsening symptoms. Educated on worrisome signs and symptoms and when to return. At this time I feel comfortable discharge home. Medications Administered Discontinued Medications Generic Name Dose Route Start Last Admin Trade Name Freq PRN Reason Stop Dose Admin Sodium Chloride 1,000 mls @ 999 mls/hr 01/22/24 09:15 01/22/24 12:40 Ns IV 01/22/24 10:15 Infused .Q1H1M KASEY Infusion Ceftriaxone Sodium 1 gm/ 50 mls @ 100 mls/hr 01/22/24 12:33 01/22/24 12:40 Sodium Chloride IV 01/22/24 13:02 100 mls/hr ONCE ONE Administration Iohexol 85 ml 01/22/24 10:21 01/22/24 10:22 Iohexol 350 Mg/Ml 100 Ml Infus..Btl IV 01/22/24 10:22 85 ml ONCE ONE Administration Morphine Sulfate 4 mg 01/22/24 10:52 01/22/24 11:08 Morphine Sulfate 4 Mg/Ml Cartridge IVPUSH 01/22/24 10:53 4 mg ONCE ONE Administration Protocol Ondansetron HCl 4 mg 01/22/24 08:38 01/22/24 08:44 Ondansetron Hcl 4 Mg/2 Ml Vial IVPUSH 01/22/24 08:39 4 mg ONCE ONE Administration Prochlorperazine Edisylate 5 mg 01/22/24 09:25 01/22/24 09:37 Prochlorperazine Edisylate 10 Mg/2 Ml Vial IVPUSH 01/22/24 09:26 5 mg ONCE ONE Administration Medical Decision Making Medical Decision Making [facility] Narrative: 09 38 [place] old female presents with right upper quadrant pain, nausea, vomiting, diarrhea ongoing since this morning worsening. Physical examination right upper quadrant tenderness. Patient appears uncomfortable. Concerns for possible appendicitis versus viral illness versus gastroenteritis. Unlikely acute abdomen, obstruction, pancreatitis, diverticulitis, , dissection. Will rule out UTI and although less likely. Plan at this time labs, imaging, urine. Differential Diagnosis Differential Diagnoses: The differential diagnosis associated with the presentation includes Concerns for possible appendicitis versus viral illness versus gastroenteritis. Unlikely acute abdomen, obstruction, pancreatitis, diverticulitis, , dissection. Will rule out UTI and although less likely. Admission/Observation Consideration of admission/observation: Escalation of care including admission/observation considered Possible Lab Data [facility] Lab Attestation statement: I reviewed the patient's lab results. 01/22/24 08:35 01/22/24 08:35 Labs: Lab Results 01/22/24 01/22/24 Range/Units 08:35 11:00 WBC 7.8 (4.8-10.8) X10*3/uL RBC 4.57 (4.20-5.50) X10*6/uL Hgb 13.4 (12.0-16.0) g/dl Hct 38.8 (37.0-47.0) % MCV 84.9 (80.0-98.0) fL MCH 29.3 (27.0-33.0) pg MCHC 34.5 (31.0-35.0) g/dl RDW 12.7 (11.0-16.0) % Plt Count 221 (160-400) X10*3/uL MPV 10.5 (9.4-12.3) fL Immature Gran % (Auto) 0.3 (0.0-0.4) % Neut % (Auto) 88.6 H (45-73) % Lymph % (Auto) 6.6 L (20-40) % [place] % (Auto) 4.0 (2-11) % Eos % (Auto) 0.0 (0-4) % Baso % (Auto) 0.5 (0-2) % Lymph # (Auto) 0.5 L (1.2-4.9) X10*3/uL [place] # (Auto) 0.3 (0.1-1.2) X10*3/uL Eos # (Auto) 0.0 (0.0-0.4) X10*3/uL Baso # (Auto) 0.0 (0.0-0.2) X10*3/uL Abs Immat Gran (auto) 0.02 (0.00-0.03) X10*3/uL Absolute Neuts (auto) 6.9 (2.0-8.3) x10*3/uL Absolute Nucleated RBC 0.000 (0.0-0.012) X10*3/uL Nucleated RBC % (auto) 0.0 (0.0-0.2) /100WBC Sodium 141 (135-145) mmol/L Potassium 3.4 (3.3-5.1) mmol/L Chloride 108 (96-108) mmol/L Carbon Dioxide 21 L (22-29) mmol/L Anion Gap 15 (12-20) BUN 10 (9-16) mg/dL Creatinine 0.81 (0.5-1.4) mg/dL Estim Creat Clear Calc 93.3 Estimated GFR > 60 Random Glucose 182 H (60-115) mg/dL Calcium 9.8 D (8.4-10.2) mg/dL Magnesium 1.5 L (1.6-2.6) mg/dL Total Bilirubin 0.4 (0.0-1.0) mg/dL AST 22 (5-31) U/L ALT 20 (0-31) U/L Alkaline Phosphatase 77 (39-117) U/L Total Protein 7.7 (6.5-8.0) g/dL Albumin 4.5 (3.5-5.0) g/dL Beta HCG, Quant < 2 mIU/mL Urine Color Yellow Urine Appearance Cloudy Urine pH >= 9.0 (5.0-9.0) Ur Specific [place] 1.020 (1.005-1.025) Urine Protein Trace (Neg-Trace) mg/dL Urine Glucose (UA) Negative (Negative) mg/dL Urine Ketones Negative (Negative) mg/dL Urine Blood Negative (Negative) Urine Nitrite Negative (Negative) Ur Leukocyte Esterase Trace H (Negative) Urine RBC 0-2 (0-2) /HPF Urine WBC 0-5 (0-5) /HPF Ur Squamous Epith Cells 0-2 (0-2) /HPF Urine Bacteria 1+ (None Seen) Hyaline Casts 0-2 (0-2) /LPF Independent Interpretation I performed an independent interpretation of an: CT Scan Interpretation: CT/CT abdomen pelvis w IV con IMPRESSION: 1. Circumferential bowel wall thickening within a pelvic small bowel loop with adjacent stranding, consistent with acute ileitis. No evidence of perforation or abscess formation. Findings are new when compared to the prior examination. No small or large bowel obstruction. Unremarkable appendix. 2. Trace pelvic free fluid. No organized fluid collection or abscess formation. No intra-abdominal free air. 3. Mild prominence of the uterus which may represent normal variation. An underlying infectious or inflammatory process could be considered in the appropriate clinical setting. 4. Tiny focus of dependent air within the urinary bladder which could be related to recent instrumentation. Alternatively, findings could represent an infectious or inflammatory process. 5. Tiny bilateral renal calcifications are redemonstrated. Increased prominence of bilateral renal densities which could represent increasing renal stones versus early contrast excretion. No obstructing renal or ureteral stone. No hydronephrosis or hydroureter. Radiology Impression Discussion of test interpretation with radiology: I have reviewed the radiologist's reading. External Record Review External record reviewed: Office record, Outpatient record, Prior outpatient labs, Prior outpatient radiology, Primary care record and Outside ED record Prescription Management I considered prescription management with: Other (zofran ) Chronic Conditions Patient?s care impacted by: Hypertension and Other (hypertension, endometriosis, dysmenorrhea, DVT on Xarelto, PID, hydrosalpinx,) Critical Care Time Critical Care Time Critical Care Time: Yes Total Critical Care Time: 35 Attestation: I attest to this time spent taking care of the patient, obtaining history, physical, reviewing labs, imaging, speaking to my attending, specialist or hospitalist. Discharge Plan Discharge Clinical Impression: Nausea & vomiting, Abdominal pain, Hypomagnesemia, UTI (urinary tract infection), Ileitis, Viral illness Patient Disposition: Home, Self-Care Instructions: Urinary Tract Infection in Women (DC), Acute Nausea and Vomiting (ED), Abdominal Pain (ED) Additional Instructions: Take your medications as prescribed. If you were prescribed antibiotics today, it is important that you take your medication to their entirety, do not skip any doses, do not finish them early. Follow-up with your primary care provider this week. Return to the emergency department with new or worsening symptoms. Such as fevers, chills, chest pain, shortness of breath, nausea, vomiting, dizziness, headache, vision changes, lethargy In case of emergency call 911 Your magnesium was low today I gave you oral magnesium to fix this. Otherwise her labs look good. Your urine shows some signs of infection you will be treated with antibiotics. If needed you can take ibuprofen every 6 hours, Tylenol every 4 for pain and discomfort. Do not exceed maximum daily dose as listed on packaging. CT/CT abdomen pelvis w IV con IMPRESSION: 1. Circumferential bowel wall thickening within a pelvic small bowel loop with adjacent stranding, consistent with acute ileitis. No evidence of perforation or abscess formation. Findings are new when compared to the prior examination. No small or large bowel obstruction. Unremarkable appendix. 2. Trace pelvic free fluid. No organized fluid collection or abscess formation. No intra-abdominal free air. 3. Mild prominence of the uterus which may represent normal variation. An underlying infectious or inflammatory process could be considered in the appropriate clinical setting. 4. Tiny focus of dependent air within the urinary bladder which could be related to recent instrumentation. Alternatively, findings could represent an infectious or inflammatory process. 5. Tiny bilateral renal calcifications are redemonstrated. Increased prominence of bilateral renal densities which could represent increasing renal stones versus early contrast excretion. No obstructing renal or ureteral stone. No hydronephrosis or hydroureter. Fleischner guidelines were followed. US/US pelvic ovarian doppler IMPRESSION: 1. Unremarkable sonographic appearance of the uterus and bilateral ovaries. 2. Comment of free fluid in the left adnexa which may be physiologic. Prescriptions: New cefuroxime axetil 250 mg tablet 250 mg PO BID 7 Days Qty: 14 0RF ondansetron 4 mg tablet,disintegrating 4 mg PO Q6H PRN (Reason: nausea and vomiting) Qty: 14 0RF No Action Xarelto 20 mg tablet 1 tab PO QPM amoxicillin-pot clavulanate 875-125 mg tablet 1 tab PO BID Qty: 20 0RF tramadol 50 mg tablet 50 mg PO BID PRN (Reason: pain) Qty: 6 0RF jmtmdzxzot-owgwlettzcjcz-qngv 50-325-40 mg tablet 1 tab PO TID PRN (Reason: migraine) sertraline 50 mg tablet 50 mg PO DAILY hydrochlorothiazide 12.5 mg capsule 12.5 mg PO DAILY Referrals: Kelsey Huggins MD [Primary Care Provider] - 2 days Stand Alone Forms: Work/School Release Print Language: Indonesian
[2024-01-22 09:07] LABS: HCG Quantitative < 2 mIU/mL
--- NOTE | 2024-01-22 09:14 | PC.NURSE ---
Pt is alert/oriented x 4, states sudden onset nausea/vomiting and RUQ abd pain at 0600. +Bowel sounds x 4 quads, abd soft. No active vomiting at time of assessment. Pt grimacing and nausea noted. IV established and medicated as charted. VSS. Visitor at bedside.
[2024-01-22] MEDS: 0.9 % Sodium Chloride 1,000 ML 999 ML IV (09:23)
[2024-01-22] MEDS: Prochlorperazine Edisylate 10 MG/2 ML VIAL 5 MG IVPUSH (09:37)
--- NOTE | 2024-01-22 09:41 | PC.NURSE ---
No relief from Zofran, Compazine IVP given as charted. Fluids continue to infuse
[2024-01-22] MEDS: iohexoL 350 MG/ML 100 ML INFUS..BTL 85 ML IV (10:22)
[2024-01-22 11:00] VITALS: BP 128/74; PULSE 58; RESP 14; O2SAT 100
[2024-01-22] MEDS: Morphine Sulfate 4 MG/ML CARTRIDGE IVPUSH (11:08)
[2024-01-22 11:09] LABS: Appearance Urine Cloudy; Color Urine Yellow; Glucose Urine UA Negative (Negative); Leukocyte Esterase Urine Trace (Negative); Nitrite Urine Negative (Negative); PH >= 9.0 (5.0-9.0); UMIC TRIGGER UACC YES; Urine Blood Negative (Negative); Urine Ketones Negative (Negative); Urine Protein Trace mg/dL (Neg-Trace)
--- NOTE | 2024-01-22 11:09 | PC.NURSE ---
Medicated for 8/10 pain as charted
[2024-01-22 11:41] LABS: Bacteria Urine 1+ (None Seen); Hyaline Casts Urine 0-2 /LPF (0-2); RBC Urine 0-2 /HPF (0-2); Squamous Epithelial Cell Urine 0-2 /HPF (0-2); WBC Urine 0-5 /HPF (0-5)
[2024-01-22] MEDS: cefTRIAXone sodium 1 GM in 0.9 % Sodium Chloride 50 ML IV (12:40)
[2024-01-22 13:59] VITALS: BP 98/48; PULSE 66; RESP 16; TEMP 36.7; O2SAT 100
[2024-01-22 15:36] VITALS: BP 102/62; PULSE 59; RESP 16; TEMP -17.7; TEMP 0; O2SAT 100
== END 2024-01-22 15:37 | disposition home or self-care (01) ==
PROVIDERS: Physician Assistant; Emergency Provider Emergency Medicine Emergency Medical Services; PCP Internal Medicine
DX: N39.0 Urinary tract infection, site not specified (principal); K52.9 Noninfective gastroenteritis and colitis, unspecified; B34.9 Viral infection, unspecified; E83.42 Hypomagnesemia; R11.2 Nausea with vomiting, unspecified; R10.11 Right upper quadrant pain; I10 Essential (primary) hypertension; Z86.718 Personal history of other venous thrombosis and embolism; Z79.01 Long term (current) use of anticoagulants; Z90.49 Acquired absence of other specified parts of digestive tract
CPT/HCPCS: 36415; 74177; 76856; 80053; 81001; 83735; 84702; 85025; 93975; 96361; 96365; 96366; 96375; 99285; J0696; J0737; J2270; J2405; Q9967

== ENCOUNTER 2024-02-03 16:08 | Outpatient (REF) | payer MEDICAID, SELFPAY ==
--- NOTE | ~2024-02-03 | XR_ITS ---
EXAMINATION: XR SACRUM AND COCCYX CLINICAL INFORMATION: Patient states she fell 2 days ago, order states sacral coxalgia. COMPARISON: None available. TECHNIQUE: 5 views of the sacrum/coccyx. FINDINGS: Bone mineralization is normal. Mild degenerative changes in the imaged lower lumbar spine. Bilateral hip joint spaces are preserved. Bilateral sacroiliac joints are maintained. XR/XR sacrum coccyx min 2V IMPRESSION: 1. Mild degenerative changes in the imaged lower lumbar spine. 2. Additional imaging with CT scan should be considered for better visualization as these modalities are much more sensitive for detection of fracture or other underlying pathology.
== END 2024-02-03 16:09 | disposition home or self-care (01) ==
LOC: HO.HHCX 16:08
PROVIDERS: Visit Provider Internal Medicine
DX: M53.3 Sacrococcygeal disorders, not elsewhere classified (principal)
CPT/HCPCS: 72220

== ENCOUNTER 2025-07-02 20:57 | Emergency (ER) | payer MEDICAID, SELFPAY ==
--- NOTE | ~2025-07-02 | CT_ITS ---
CLINICAL HISTORY: r o PE CT angiography chest with contrast. With MIP MPR Postprocessing. Comparison: None provided Findings: No central pulmonary embolism accounting for artifacts. No aortic dissection, accounting for artifacts. Mild residual thymic tissue mild mediastinal fluid noted. Mild bibasilar atelectasis/pneumonitis, left worse than right with ground-glass noted (90 of series 8). Duodenal asymmetry of the imaged glandular tissues nonspecific by CT. Imaged spleen approaches the upper limits of normal in the imaged abdomen. Gallbladder is surgically absent. Fusion of the sternum and manubrium. Osteophytes include imaged thoracic spine. Mild/minimal degenerative changes of the imaged shoulders by CT. IMPRESSION: 1. No central pulmonary embolism. 2. Mild bibasilar atelectasis of the pneumonitis. Please consider attention on follow-up to ensure resolution. This document has been electronically signed by: Edmond Stevenson MD on 07/03/2025 00:41:27
[2025-07-02 21:00] VITALS: BP 129/75; PULSE 101; RESP 16; TEMP 36.8; O2SAT 99; BMI 27.2
--- OUTSIDE RECORDS SUMMARY | 2025-07-02 21:17 | XMS_ITS | Clinical Summary ---
Author Organization [employer] Address [address] [place] [address] 7 [place] [address] Care Team Providers Care Laborer Beam House Name Role Phone Unavailable Primary Care Provider Unavailabl e Allergies Active Allergy Reactions Criticality Noted Date Comments Ibuprofen 07/09/2022 Naproxen 10/20/2017 Other reaction(s): Inflammation Medications ibuprofen 400 MG tablet Take 1 tablet by mouth every 4 (four) hours. 2 Active lidocaine (Lidoderm) 5 % patch apply 1-2 patches by topical route every day (May wear up to 12hours) prn pain. 2 Active loratadine (Claritin) 10 MG tablet take 1 tablet by oral route every day as needed for allergies 9 Active ondansetron (Zofran) 4 MG tablet Take 1 tablet by mouth in the morning and 1 tablet at noon and 1 tablet in the evening and 1 tablet before bedtime. 2 Active ascorbid acid ER (Vitamin C) 500 MG ER tablet Take one tablet with your iron supplement and a full glass of water 2 Active sertraline (Zoloft) 50 MG tabletIndication s:Recurrent major depressive episodes, moderate (CMS/HCC) (HCC) Take 1 tablet (50 mg) by mouth in the morning. 90 tablet 3 4 Active hydroCHLOROthiaz yaima (HYDRODiuril) 25 MG tabletIndication s:Edema,Hyperten angel Take 25 mg by mouth Once per day. Active fluticasone (Flonase) 50 MCG/ACT nasal spray ADMINISTER 1 SPRAY INTO EACH NOSTRIL ONCE PER DAY. 48 mL 4 Active butalbital-aceta minophen-caffein e 50-325-40 MG tabletIndication s:Nonintractable headache, unspecified chronicity pattern, unspecified headache type TAKE 1 TABLET BY MOUTH 3 TIMES A DAY NEEDED FOR MIGRAINE. DO NOT EXCEED 3 TAB IN 24 HOURS OR 15 TAB/MONTH 15 tablet 3 4 Active Active Problems Problem Noted Date Diagnosed Date Sacrocoxalgia 02/02/2024 Assessment & Plan (02/02/2024 4:12 PM EDT): R/o fracture, order XR. Recommended to use a donut shaped pillow for seating. Will use Diclofenac gel for pain. She will drive in small amounts first if she does not tolerate, will stop and use Tylenol. Continue to apply ice packs to affected area and re consult PRA Tooth ache 12/02/2023 Assessment & Plan (12/02/2023 12:45 PM EDT): Seems to have maxillary abscess s/p antibiotics Counseled regarding oral was w warm water and salt and/or listerine PRN Fu w/ maxillofacial surgeon on [facility] on 12/29 at 12:30. Prescription for tramadol daily until she's seen by surgeon Primary hypertension 12/02/2023 Assessment & Plan (12/02/2023 2:45 PM EDT): Hydrochlorothiazide recently increased (during last hospitalization) to 25m/d, patient is doing well Continue hydrochlorothiazide same dose Counseled re low salt diet/increase moderate physical activity. Check home BP BIW and prn CP/AGUILAR/ADAMS Non smoking patient. FU 6m Concussion without loss of consciousness 024 Myofascial pain dysfunction syndrome 10/04/2023 Deep vein thrombosis (DVT) of lower extremity Overview (10/05/2023): Right popliteal vein. DVT US LE on 02/2022 She was on Xarelto x 3mo Assessment & Plan (12/02/2023 3:01 PM EDT): S/p accident on 2021, she was seen by Dr Bui on 03/2022, hypercoagulable labs were NEG and she was cleared to complete rx for max of 6mo (due on 08/2022). Patient can dc She can DC Xarelto now and fu with maxillofacial surgery for procedure. Patient understood and agreed with POC Re consult prn. Assessment & Plan (10/05/2023 7:46 PM EST): It was related to trama back on 02/2022, seen by hematology Off xarelto now, no need to restart medication for now. Hematology note on 03/2022 reviewed, will call hematology to see if there's an additional fu note. FU with me in 3-4m Endometrial polyp 10/04/2023 Endometriosis 10/04/2023 Hydrosalpinx 10/04/2023 Right knee sprain 10/04/2023 Left knee sprain 10/04/2023 Sprain of left hip 10/04/2023 RLQ abdominal pain 10/01/2023 Assessment & Plan (10/01/2023 6:25 PM EST): Urine preg test is neg today, urine dipstick neg -chem 08/29/2023 K 3.1 ,rest wnl Pt w ongoing RLQ pain already completed 14 days of PID tx . Here afebrile with normal VS ,tenderness in abdomen but no alarming findings on examination Will hold on further ATB for now -repeat CBC and chem today ,UA w reflex cx,sureswab sent today -alarm signs and symptoms discussed w pt in length in case needs to go to ED if pain worsen to eval for appendicitis vs ovarian/tubal pathology -TV/pelvic US referred today as STAT to have test today at hospital -ok to take tylenol up to 1 gr Q 6 h -Has apt w PCP scheduled already for 10/03/2023 in 4 days -has apt w OBG [employer] [facility] for 10/29/2023 -pt is calling to check if can get an earlier apt Injury of knee 09/30/2023 Abnormal uterine bleeding 07/08/2022 Acute deep venous thrombosis of popliteal vein ( CMS/HCC) 07/08/2022 Acute pain of both knees 07/08/2022 Headache 07/08/2022 Lumbar radiculopathy 07/08/2022 Pelvic pain 07/08/2022 Assessment & Plan (10/05/2023 7:49 PM EST): Sp abs rx for PID. Referred to Dr Valencia (By dr Valderrama) at [address] [place] [id number]; Get Directions. phone: [phone], she has appt on 10/29/23. Refer to Dr Ureña re appendicitis and decide on further rx Food poisoning 10/31/2017 Acute frontal sinusitis 09/30/2017 Recurrent major depressive episodes, moderate (C MS/HCC) 08/09/2017 Assessment & Plan (12/02/2023 12:45 PM EDT): Doing well on sertraline 50mg. We discussed about potential interactions w/ tramadol including serotoninergic syndrome Continue close fu w therapist Assessment & Plan (10/05/2023 7:47 PM EST): Continue fu with therapist at [facility], Not compliant with sertraline, uses CBD and reports feeling better. Right upper quadrant pain 02/18/2017 Anemia 07/08/2016 Edema of lower extremity 07/08/2016 Encounters Date Type Department Care Team Description 07/02/2025 Telephone [facility] [address] [place] [phone] Meredith Emanuel RN 06/19/2025 3:20 PM EST Office Visit [facility] [address] [place] [phone] Timur Foster MD Leg swelling (Primary Dx); History of DVT in adulthood 06/19/2025 Travel 05/07/2025 Telephone [facility] [address] [place] [address] Tomás Corea MD 04/09/2025 Telephone [facility] [address] [place] [phone] Tomás Corea MD [facility] - New Patient Assistance from Last 3 Months Immunizations Immunization Administration Dates Next Due Influenza injectable quadriv alent IIV4 with preservative 05/01/2018,09/01/2017,06/02/2016 Tdap 10/01/2020,08/04/2016 Social History Tobacco Use Types Packs/Day Years Used Date Smoking Tobacco: Former Cigarettes Smokeless Tobacco: Never Tobacco Cessation:Counseling Given: Not Answered Alcohol Use Standard Drinks/Week Comments Never 0 (1 standard drink = 0.6 oz pur e alcohol) Housing Stability Answer Date Recorded What is your housing situation today? I have sera escobedo 09/08/[address] you li ve. Do you have problems with any of the following? None of the above 09/08/2023 Food Insecurity Answer Date Recorded Within the past 12 months, y ou worried that your food would run out before you got money to buy more: Sometimes True 2023 Within the past 12 months,th e food you bought just didn't last and you didn't have enough money to get more: Sometimes True 09/08/2023 Transportation Answer Date Recorded In the past 12 months, has l ack of transportation kept you from medical appts, meetings, work or from getting things needed for daily living? Yes, it has kept me from medical appointments or getting medications. 09/08/2023 Utilities Answer Date Recorded In the past 12 months, has t he electric, gas, oil or water company threatened to shut off services in your home? No 09/08/2023 Depression Answer Date Recorded Patient Health Questionnaire-2 Score 0 10/03/2023 Comments Unknown Sex and Gender Information Value Date Recorded Sex Assigned at Female 06/07/2022 10:30 AM EDT Legal Sex Female 10:30 AM EDT Gender Identity Female 06/07/2022 10:30 AM EDT Sexual Orientation Straight 06/07/2022 10 :30 AM EDT Last Filed Vital Signs Vital Sign Reading Time Taken Comments Blood Pressure 125/89 06/19/2025 3:27 PM EST Pulse 69 06/19/2025 3:27 PM EST Temperature 36.3 C (97.3 F) 06/19/2025 3:27 PM EST Respiratory Rate 18 06/19/2025 3:27 PM EST Oxygen Saturation 100% 06/19/2025 3:27 PM EST Inhaled Oxygen Concentration - - Weight 79.2 kg (174 lb 9.6 oz) 06/19/2025 3:27 P M EST Height 170.2 cm (5' 7 ) 06/19/2025 3:27 PM EST Body Mass Index 27.35 06/19/2025 3:27 PM EST Plan of Treatment Health Maintenance Due Date Last Done Comments Dental Oral Exam 1987 Dental Prophylaxis 1987 Dental X-Ray: Bitewings 1987 Lipid Panel 1987 Disability Screening 1987 Alcohol/Substance Use Screening 1999 Family Planning (PISQ) 2002 HPV Vaccines (1 - 3-dose series) 2002 Hepatitis B Vaccines (1 of 3 - 19+ 3-dose series) 2006 Pap Smear 2008 Cervical Cancer Screening 2017 HPV/Cotest 2017 SDOH Screening 09/08/2024 09/08/2023 Depression Screening 10/03/2024 10/03/2023, 10/03/2023 COVID-19 Vaccine (1 - 2024-2 6 season) 2025 Influenza Vaccine (#1) 2025 8, 09/01/2017, 06/02/2016 Tobacco Screening 06/19/2026 06/19/2025 Dental X-Ray: Full Mouth 03/20/2027 024, 02/03/2024 DTaP/Tdap/Td Vaccines (3 - T d or Tdap) 10/01/2030 10/01/2020, 08/04/2016 Zoster Vaccines (1 of 2) 2037 RSV Patients and Patients Aged 60 years or older (1 - 1-dose 75+ series) 2062 HIV Screening Completed 12/22/2021 Hepatitis C Screening Completed 12/22/2021 HIB Vaccines Aged Out No longer eligi ble based on patient's age to complete this topic Hepatitis A Vaccines Aged Out No long er eligible based on patient's age to complete this topic IPV Vaccines Aged Out No longer eligi ble based on patient's age to complete this topic Meningococcal B Vaccine Aged Out No l onger eligible based on patient's age to complete this topic Meningococcal Vaccine Aged Out No sasha celsa eligible based on patient's age to complete this topic Pneumococcal Vaccine: Pediatrics (0 to 5 Years) and At-Risk Patients (6 to 49) Years Aged Out No longer eligible b ased on patient's age to complete this topic RSV under 20 months Aged Out No longe r eligible based on patient's age to complete this topic Rotavirus Vaccines Aged Out No longer eligible based on patient's age to complete this topic Procedures Procedure Name Priority Date/Time Associated Diagnosis Comments PANORAMIC RADIOGRAPHIC IMAGE Routine 02/03/2024 1:00 PM EDT Rampant dental caries ZZZ HISTORICAL HEPATITIS C AB W/REFL TO HCV RNA, QN, PCR Routine 12/22/2021 5:04 PM EDT HIV 1/2 ANTIGEN/ANTIBODY, FOURTH GENERATION W/RFL Routine 12/22/2021 5:04 PM EDT from Last 3 Months or Most Recently Relevant to Health Maintenance Results * HEPATITIS C AB W/REFL TO HCV RNA, QN, PCR (12/22/2021 5:04 PM EDT) HEPATITIS C ANTIBODY NON-REACT SUNDAY NON-REACT SUNDAY [facility] INDEX 0.02 <1.00 [facility] Comment: HCV antibody was non-reactive. There is no laboratory evidence of HCV infection. In most cases, no further action is required. However, if recent HCV exposure is suspected, a test for HCV RNA (test code 56714) is suggested. For additional information please refer to http://education.[employer]/faq/ZAY61k3 (This link is being provided for informational/ educational purposes only.) 12/22/2021 5:04 PM EDT us Maninder Woodall MD HISTORICAL/NON ORDERABLE LABS Fi nal Result [facility] [address] * HIV 1/2 ANTIGEN/ANTIBODY,FOURTH GENERATION W/RFL (12/22/2021 5:04 PM EDT) HIV-1/2 ANTIGEN AND ANTIBODIES, 4TH GENERATION W/ REFLEX NON-REACT SUNDAY NON-REACT SUNDAY [facility] Comment: HIV-1 antigen and HIV-1/HIV-2 antibodies were not detected. There is no laboratory evidence of HIV infection. PLEASE NOTE: This information has been disclosed to you from records whose confidentiality may be protected by state law. If your state requires such protection, then the state law prohibits you from making any further disclosure of the information without the specific written consent of the person to whom it pertains, or as otherwise permitted by law. A general authorization for the release of medical or other information is NOT sufficient for this purpose. For additional information please refer to http://education.[employer]/faq/MFU488 (This link is being provided for informational/ educational purposes only.) The performance of this assay has not been clinically validated in patients less than 2 years old. 12/22/2021 5:04 PM EDT us Maninder Woodall MD LAB BLOOD ORDERABLES Final Resul t Performing Organization Address City/State/[facility] Co de Phone Number [facility] [address] from Last 3 Months or Most Recently Relevant to Health Maintenance Insurance [facility] C3 DENTAL-[facility] MEDICAID STAND ADULT
--- OUTSIDE RECORDS SUMMARY | 2025-07-02 21:17 | XMS_ITS | Encounter Summary ---
Author Organization [employer] Address [address] [place] [address] [place] [address] Care Team Providers Care Head Screen Worker Name Role Phone Kelsey Huggins MD Primary Care Provider + Encounter Details Date Type Department Care Team ([facility] st Contact Info) Description 07/26/2022 Orders Only [facility]INE [address] [place] [address] Yarelis Loyola FNP [address] [place] [address] Pain and swelling of knee, right (Primary Dx) Social History Tobacco Use Types Packs/Day Years Used Date Smoking Tobacco: Every Day Cigarettes Comments Unknown Sex and Gender Information Value Date Recorded Sex Assigned at Female 06/07/2022 10:30 AM EDT Legal Sex Female 10:30 AM EDT Gender Identity Female 06/07/2022 10:30 AM EDT Sexual Orientation Straight 06/07/2022 10 :30 AM EDT COVID-19 Exposure Response Date Recorded In the last 10 days, have yo u been in contact with someone who was confirmed or suspected to have Coronavirus/COVID-19? No / Unsure 07/09/2022 2:08 PM EST documented as of this encounter Plan of Treatment Not on file documented as of this encounter Visit Diagnoses Diagnosis Pain and swelling of knee, right- Primary documented in this encounter Care Teams Head Screen Worker Relationship Specialty Start Date End Date Kelsey Huggins MD [address] [place] [address] PCP - General Family Medicine 08/08/18 02/28/24 Maggie Montoya Travel Physical Therapist 09/12/23 12/09/23 documented as of this encounter
--- OUTSIDE RECORDS SUMMARY | 2025-07-02 21:17 | XMS_ITS | Encounter Summary ---
Author Organization [employer] Address [address] [facility] [address]t [place] [address] Care Team Providers Care Cable Splicer Apprentice Name Role Phone Unavailable Primary Care Provider Unavailabl e Encounter Details Date Type Department Care Team ([facility] st Contact Info) Description 07/02/2025 Telephone [facility] [address] [place] [address] Meredith Emanuel, RN [address] [place] [address] Social History Tobacco Use Types Packs/Day Years Used Date Smoking Tobacco: Former Cigarettes Smokeless Tobacco: Never Alcohol Use Standard Drinks/Week Comments Never 0 [...] Orientation Straight 06/07/2022 10 :30 AM EDT documented as of this encounter Miscellaneous Notes * Telephone Encounter - Meredith Emanuel RN - 07/02/2025 12:15 PM EST Call attempted to Patient regarding recent visit concern. Number is no longer in service. documented in this encounter Plan of Treatment Not on file documented as of this encounter Visit Diagnoses Not on filedocumented in this encounter
--- OUTSIDE RECORDS SUMMARY | 2025-07-02 21:17 | XMS_ITS | Encounter Summary ---
Author Organization [employer] Address [address] [facility] 7 [place] [address] Care Team Providers Care Windows Technical Specialist Name Role Phone Kelsey Huggins MD Primary Care Provider + Reason for Visit * Reason Comments Med Refill Encounter Details Date Type Department Care Team ([facility] Contact Info) Description 02/01/2024 Refill [facility] [address] [place] [address] Kelsey Huggins MD [address] [place] [address] Tooth ache Social History Tobacco Use Types Packs/Day Years Used Date Smoking Tobacco: Former Cigarettes Smokeless Tobacco: Never Alcohol Use Standard Drinks/Week Comments Never 0 (1 standard drink = 0.6 oz pur e alcohol) Housing Stability Answer Date Recorded What is your housing situation today? I have sera gregg 09/08/[address] you li [...] encounter Miscellaneous Notes * Telephone Encounter - Patti Rosales RN - 02/03/2024 9:51 AM EDT fabrication manager called our dental team who was willing to see patient today at 1130. RN called pt to confirm, pt stated she cannot come in because she can barely walk and has to get an xray. Pt states I know she wants me to go urgently but I have to wait until I can walk . RN advised pt to call our dental dept. when she is able to come in. Pt agreed to POC ----- Message from Kelsey Huggins MD sent at 02/02/2024 4:41 PM EDT ----- Can you please check if any of our dental clinics will see this patient for hx dental abscess, cavity. She had been seen in the ED and referred to maxillofacial surgeon in [place] (it is in her chart on previous visits) but they wont see her until she's seen by a general dentist. She has been dealing with this tooth infections for at least 1 mo. * Telephone Encounter - Patti Rosales RN - 02/03/2024 9:50 AM EDT ----- Message from Kelsey Huggins MD sent at 02/02/2024 4:41 PM EDT ----- Can you please check if any of our dental clinics will see this patient for hx dental abscess, cavity. She had been seen in the ED and referred to maxillofacial surgeon in [place] (it is in her chart on previous visits) but they wont see her until she's seen by a general dentist. She has been dealing with this tooth infections for at least 1 mo. documented in this encounter Plan of Treatment Not on file documented as of this encounter Visit Diagnoses Diagnosis Tooth ache documented in this encounter Care Teams Windows Technical Specialist Relationship Specialty Start Date End Date Kelsey Huggins MD [address] [place] [phone] PCP - General Family Medicine 08/08/18 02/28/24 documented as of this encounter
--- OUTSIDE RECORDS SUMMARY | 2025-07-02 21:17 | XMS_ITS | Encounter Summary ---
Author Organization [employer] Address [address] [place] [address] Care Team Providers Care Print Cutter Name Role Phone Kelsey Huggins MD Primary Care Provider + Reason for Visit * Reason Comments Med Refill Encounter Details Date Type Department Care Team ([facility] st Contact Info) Description 03/08/2023 Refill [facility] MEDICINE [address] [place] [address] Rajat Figueredo MD [address] [place] [address] Uncomplicated opioid dependence (CMS/HCC) Social History Tobacco Use Types Packs/Day Years Used Date Smoking Tobacco: Every Day Cigarettes Comments Unknown Sex and Gender Information Value Date Recorded Sex Assigned at Female 06/07/2022 10:30 AM EDT Legal Sex Female 10:30 AM EDT Gender Identity Female 06/07/2022 10:30 AM EDT Sexual Orientation Straight 06/07/2022 10 :30 AM EDT documented as of this encounter Plan of Treatment Not on file documented as of this encounter Visit Diagnoses Diagnosis Uncomplicated opioid dependence (CMS/HCC) (HCC) documented in this encounter Care Teams Print Cutter Relationship Specialty Start Date End Date Kelsey Huggins MD [address] [place] [address] PCP - General Family Medicine 08/08/18 02/28/24 Maggie Montoya Anodiser 09/12/23 12/09/23 documented as of this encounter
--- OUTSIDE RECORDS SUMMARY | 2025-07-02 21:17 | XMS_ITS | Encounter Summary ---
Author Organization [employer] Address [address] [place] [address] Care Team Providers Care Hoop Puncher Name Role Phone Kelsey Huggins MD Primary Care Provider + Reason for Visit * Reason Comments Med Refill Encounter Details Date Type Department Care Team ([facility] st Contact Info) Description 06/18/2023 Refill [facility]INE [address] [place], [place] [phone] Kelsey Huggins MD [address] [place], [place] [phone] Nonintractable headache, unspecified chronicity pattern, unspecified headache type Social History Tobacco Use Types Packs/Day Years [...] as of this encounter Visit Diagnoses Diagnosis Nonintractable headache, unspecified chronicity pattern, unspecified headache type documented in this encounter Care Teams Hoop Puncher Relationship Specialty Start Date End Date Kelsey Huggins MD [address] [place], [place] [phone] PCP - General Family Medicine 08/08/18 02/28/24 Maggie Montoya Station Baggage Agent 09/12/23 12/09/23 documented as of this encounter
--- OUTSIDE RECORDS SUMMARY | 2025-07-02 21:17 | XMS_ITS | Encounter Summary ---
Author Organization [employer] Address [address] [facility] 7 [place] [address] Care Team Providers Care Vp Business Development Name Role Phone Unavailable Primary Care Provider Unavailabl e Reason for Visit * Reason Comments Med Refill Encounter Details Date Type Department Care Team ([facility] st Contact Info) Description 04/02/2024 Refill [facility] MEDICINE [address] [place] [address] Kelsey Huggins MD [address] [place] [address] Social History Tobacco Use Types Packs/Day Years [...]
--- OUTSIDE RECORDS SUMMARY | 2025-07-02 21:17 | XMS_ITS | Encounter Summary ---
Author Organization [employer] Address [address] [facility] 7 [place] [address] Care Team Providers Care Note Keeper Name Role Phone Kelsey Huggins MD Primary Care Provider + Encounter Details Date Type Department Care Team ([facility] st Contact Info) Description 02/27/[address] [facility] [address] [place] [address] Ghislaine Chopra, DDS [address] [place] [address] Social History Tobacco Use Types Packs/Day Years [...] the past 12 months, has t he [employer], gas, oil or water [employer] threatened to shut off services in your [...] encounter Miscellaneous Notes * Telephone Encounter - Ghislaine Chopra DDS - 02/29/2024 9:33 AM EDT Pt currently on Clindamycin 150 mg. Pt with scheduled extraction appt on 03/09. Pt to refer with PCPif stronger pain medication needed. * Telephone Encounter - Yamilet Bentley - 02/29/2024 9:06 AM EDT This message was sent to Dr. Curtis and it was addressed to her but will send again DR Patient called in to medical side and was transferred to our side. Patient was screaming over the phone and angry because they are in a lot of pain and are not scheduled until 03/09 at [facility] for oral surgery. They state that her PCP here in the clinic prescribed antibiotics and pain medication tramadol that has not worked. And that then the patient was scheduled upstairs at [facility] dental for an emergency visit. She states that the medication that was sent is not helping thepain at all and that in fact her abscess is getting worse. I did give the patient 2 options which was to have me send a message to provider or if she felt extremely ill, that she could come in today for another emergency appt to see if we could verify what may be happening. She continued yelling stating that we are wasting her time and that all she wants is to have a message sent to the doctor and have soemthing different sent to the pharmacy and to be able to speak to the provider. She is veryscared as she has had medical conditions that have developed due to the amount of medication that she has taken in the past. She states that a cellulitis condition is developing in her jaw and does not know what to do. She would like to speak to provider to decide what to do. She has that appt for surgery coming up but the amount of pain she is in is unbearable and growing abscess and not sure that they would even be able to follow through with treatment in the condition that she is in. Please r each out to patient and/or revise medication if provider determines situation merits. Extreme pain.DR * Telephone Encounter - Ben Birch DMD - 02/27/2024 1:58 PM EDT Please follow up with Dr. Curtis * Telephone Encounter - Yamilet Bentley - 02/27/2024 1:28 PM EDT Patient called in to medical side and was transferred to our side. Patient was screaming over the phone and angry because they are in a lot of pain and are not scheduled until 03/09 at [facility] for oral surgery. They state that her PCP here in the clinic prescribed antibiotics and pain medication tramadol that has not worked. And that then the patient was scheduled upstairs at [facility] dental for an emergency visit. She states that the medication that was sent is not helping thepain at all and that in fact her abscess is getting worse. I did give the patient 2 options which was to have me send a message to provider or if she felt extremely ill, that she could come in today for another emergency appt to see if we could verify what may be happening. She continued yelling stating that we are wasting her time and that all she wants is to have a message sent to the doctor and have soemthing different sent to the pharmacy and to be able to speak to the provider. She is veryscared as she has had medical conditions that have developed due to the amount of medication that she has taken in the past. She states that a cellulitis condition is developing in her jaw and does not know what to do. She would like to speak to provider to decide what to do. She has that appt for surgery coming up but the amount of pain she is in is unbearable and growing abscess and not sure that they would even be able to follow through with treatment in the condition that she is in. Please r each out to patient and/or revise medication if provider determines situation merits. Extreme pain.DR documented in this encounter Plan of Treatment Not on file documented as of this encounter Visit Diagnoses Not on filedocumented in this encounter Care Teams Note Keeper Relationship Specialty Start Date End Date Kelsey Huggins MD [address] [place] [id number] PCP - General Family Medicine 08/08/18 02/28/24 documented as of this encounter
--- OUTSIDE RECORDS SUMMARY | 2025-07-02 21:17 | XMS_ITS | Encounter Summary ---
Author Organization [employer] Address [address] [place] [address] 7 [place] [address] Care Team Providers Care Liquid Waste Treatment Plant Operator Name Role Phone Unavailable Primary Care Provider Unavailabl e Reason for Visit * Reason Comments Med Refill Encounter Details Date Type Department Care Team ([facility] st Contact Info) Description 12/07/2024 [facility]ill [facility] [address] [place] [address] Kelsey Huggins MD [address] [place] [address] Recurrent major depressive episodes, moderate (CMS/HCC) Social History Tobacco Use Types Packs/Day [...] as of this encounter Visit Diagnoses Diagnosis Recurrent major depressive episodes, moderate (CMS/HCC) (HCC) Major depressive disorder, recurrent episode, moderate documented in this encounter
--- OUTSIDE RECORDS SUMMARY | 2025-07-02 21:18 | XMS_ITS | Encounter Summary ---
Author Organization [employer] Address [address] [place] [id number] Care Team Providers Care Signals Collection Technician Name Role Phone Kelsey Huggins MD Primary Care Provider + Reason for Visit * Reason Comments Med Refill Encounter Details Date Type Department Care Team ([facility] st Contact Info) Description 09/30/2022 Refill [facility] [address] [place] [address] Kelsey Huggins MD [address] [place] [address] Social History Tobacco Use Types Packs/Day Years [...] suspected to have Coronavirus/COVID-19? No / Unsure 09/28/2022 10:08 AM EST documented as of this encounter Plan of Treatment Not on file documented as of this encounter Visit Diagnoses Not on filedocumented in this encounter Care Teams Signals Collection Technician Relationship Specialty Start Date End Date Kelsey Huggins MD [address] [place], [place] [id number] PCP - General Family Medicine 08/08/18 02/28/24 Maggie Montoya Fire Sprinkler Designer 09/12/23 12/09/23 documented as of this encounter
--- NOTE | 2025-07-02 21:28 | ECG_ITS ---
Test Reason : SOB Blood Pressure : */* mmHG Vent. Rate : 64 BPM Atrial Rate : 64 BPM P-R Int : 134 ms QRS Dur : 80 ms QT Int : 378 ms P-R-T Axes : 53 25 8 degrees QTcB Int : 389 ms Normal sinus rhythm with sinus arrhythmia Normal ECG When compared with ECG of 18-Jan-2019 01:27, QT has shortened Referred By: Niyah Duggan Electronically Signed By: Luis Bonilla
--- NOTE | 2025-07-02 21:33 | ED_ITS ---
HPI - General Adult General Chief complaint: General Medical Stated complaint: Allergic Reaction Time Seen by Provider: 07/02/25 21:13 History of Present Illness ED Provider: Niyah Duggan HPI narrative: 39-year-old female PMH significant for PID, and prior right lower extremity DVT no longer anticoagulated, hypertension no longer on medications due to problems with medication refills, endometriosis, presents to the ED with her daughter for evaluation reporting several complaints. Primarily, she is concerned for her lower leg swelling, and lack of blood pressure medication. She reports that her legs have been swelling intermittently for the course of several weeks, and she relates this possibly to her lack of blood pressure medicine. She tells me it has been about 6 months without her hydrochlorothiazide which she no longer has due to not actively having a PCP. Additionally, she complains of tingling in the fingertips that occurred last week, but has since resolved. She relates this to possibly lack of blood pressure medication, as well as of the intermittent tingling she has had around the mouth for the course of several days. She also thought this may be a rash, and notes that there has been some swelling around the lips. But she can not recall any new detergents, topical products, abnormal food, etc. that may have caused said rash. The rash is not present upon arrival to ED. She denies any chest pain or pressure. Does report intermittent shortness of breath, worse on exertion. No fever, chills, cough, recent illnesses. No abdominal pain, nausea or vomiting, urinary complaints Related Data Home Medications ?Medication ?Instructions ?Recorded ?Confirmed caxzijpacq-naldtwldbmomp-qmihsbpj 1 tab PO TID PRN carolina lobo 07/08/20 10/24/23 50 mg-325 mg-40 mg tablet hydrochlorothiazide 12.5 mg capsule 12.5 mg PO DAILY 1 09/08/19 10/24/23 sertraline 50 mg tablet 50 mg PO DAILY 07/08/2010/06 rivaroxaban 20 mg tablet (Xarelto) 1 tab PO QPM 10/24/23 Previous Rx's ?Medication ?Instructions ?Recorded amoxicillin 875 mg-potassium 1 tab PO BID #20 tabs 05/01 clavulanate 125 mg tablet tramadol 50 mg tablet 50 mg PO BID PRN pain #6 tab s 11/15/23 cefuroxime axetil 250 mg tablet 250 mg PO BID 7 days # 14 tabs 01/22/24 ondansetron 4 mg disintegrating 4 mg PO Q6H PRN nausea and 01/22/24 tablet vomiting #14 tabs Allergies Allergy/AdvReac Type Severity Reaction Status Date / Time No Known Allergies Allergy Verified 07/02/25 21:08 Review of Systems 2 Review of Systems: ROS is otherwise negative unless mentioned in HPI. [facility] Past Medical History Medical History Hypokalemia Hx of deep venous thrombosis Abdominal pain Endometriosis Surgical History Hx of cholecystectomy Tubal ligation status Family History Family History Mother Arthritis Maternal Grandmother Arthritis Mother Epilepsia Paternal Grandmother Cancer Social History Social History Household Members: Children Housing: House Do you presently have visiting nurse or other home services: No Alcohol intake: never Patient Tobacco Use Status: Never used Tobacco Tobacco use type: Cigarette Substance Use Type: Marijuana Advance Directives: No Advance Directives Information Provided: No service: No Current occupational status: employed Current occupation: [employer] Sexual orientation: Straight/Heterosexual Gender identity: Female Physical Exam ED Exam Exam: Nursing notes and vital signs reviewed. Constitutional: Well-appearing, NAD. Alert. Oriented X3. Eyes: Pupils equal, round and reactive to light. ENT: Pharynx normal. Neck: Normal inspection. Neck supple. CVS: Normal heart rate and rhythm. Pulses normal. Respiratory: No respiratory distress. Breath sounds normal. Abdomen: Soft and nontender. +BSx4. Skin: Skin warm and dry. Normal skin color. Extremities: No lower extremity edema. Neuro: Oriented X 3. No motor deficit. Vital Signs: Vital Signs - 24 hr 07/02/25 21:00 07/02/25 23:05 Temperature 98.3 F 98.4 F Pulse Rate 101 H 66 Respiratory Rate 16 14 Blood Pressure 129/75 108/63 Pulse Oximetry 99 100 Oxygen Delivery Method Room Air Room Air BMI result Body Mass Index 27.2 Medical Decision Making Medical Decision Making MDM Narrative: Upon assessment, she overall appears well. Answering questions appropriately. There is no redness, warmth to the calves, no pain to palpation. Low clinical suspicion for DVT. However, there is 1+ nonpitting edema bilaterally. It is could be related to dependent edema versus new CHF, though unlikely. She has a multitude of complaints, was noted to be mildly tachycardic in the low 100s, with no hypoxia. Given she then reported pain midsternally, and with radiation to the midthoracic back, and shortness of breath on exertion, we will obtain CTA of the chest to rule underlying PE given her DVT history. We will also obtain troponin, electrolytes, urinalysis. EKGs reassuring. Patient reports that she does not have adequate care outpatient with her PCP, and does relate all of her symptoms back to not having her blood pressure medications, though her blood pressure is 129/84 in the ED. Pending reassessment. 0045-- reports significant improvement in her symptoms, feeling better to be discharged home. CTA of the chest does not show evidence of any PE. Mild atelectasis, can be followed outpatient with PCP. Otherwise lab work has been reassuring while in the ED. No leukocytosis, anemia that appears to be chronic. Potassium is mildly low at 3.2, repleted orally. Urinalysis with no signs of infection. Negative viral panel. She has been hemodynamically stable while in the ED, blood pressure is in the low 100s systolic they, mid 80s diastolic the. There is no indication to refill her blood pressure medication at this time given her blood pressure is not hypertensive. She is agreeable with discharge plan, we will follow up outpatient with primary care provider. The source of her multitude of complaints is unclear, I did recommend that she keeps a food diary and monitor his intake and output, detergents, topical products, etc.. Provided return precautions to the ED. Differential Diagnosis Differential Diagnoses: The differential diagnosis associated with the presentation includes PE, ACS, mi, electrolyte abnormality, arrhythmia, allergic reaction, contact dermatitis Admission/Observation Consideration of admission/observation: Escalation of care including admission/observation considered (Not indicated) Lab Data [facility] Lab Attestation statement: I reviewed the patient's lab results. (Overall reassuring) 07/02/25 21:48 07/02/25 21:48 Labs: Lab Results 07/02/25 07/02/25 07/02/25 Range/Units 21:48 21:50 22:00 WBC 6.4 (4.8-10.8) X10*3/uL RBC 4.09 L (4.20-5.50) X10*6/uL Hgb 11.4 L (12.0-16.0) g/dl Hct 35.3 L (37.0-47.0) % MCV 86.3 (80.0-98.0) fL MCH 27.9 (27.0-33.0) pg MCHC 32.3 (31.0-35.0) g/dl RDW 12.9 (11.0-16.0) % Plt Count 188 (160-400) X10*3/uL MPV 11.1 (9.4-12.3) fL Immature Gran % (Auto) 0.5 H (0.0-0.4) % Neut % (Auto) 47.2 (45-73) % Lymph % (Auto) 45.7 H (20-40) % [place] % (Auto) 6.4 (2-11) % Eos % (Auto) 0.2 (0-4) % Baso % (Auto) 0.0 (0-2) % Lymph # (Auto) 2.9 (1.2-4.9) X10*3/uL [place] # (Auto) 0.4 (0.1-1.2) X10*3/uL Eos # (Auto) 0.0 (0.0-0.4) X10*3/uL Baso # (Auto) 0.0 (0.0-0.2) X10*3/uL Abs Immat Gran (auto) 0.03 (0.00-0.03) X10*3/uL Absolute Neuts (auto) 3.1 (2.0-8.3) x10*3/uL Absolute Nucleated RBC 0.000 (0.0-0.012) X10*3/uL Nucleated RBC % (auto) 0.0 (0.0-0.2) /100WBC PT 12.8 (11.2-13.5) SEC INR 1.0 (0.9-1.1) Sodium 142 (135-145) mmol/L Potassium 3.2 L (3.3-5.1) mmol/L Chloride 108 (96-108) mmol/L Carbon Dioxide 25 (22-29) mmol/L Anion Gap 12 (12-20) BUN 6 L (9-16) mg/dL Creatinine 0.75 (0.5-1.4) mg/dL Estim Creat Clear Calc 110.9 Estimated GFR > 60 Random Glucose 67 (60-115) mg/dL Calcium 9.3 (8.4-10.2) mg/dL Magnesium 2.1 (1.6-2.6) mg/dL Troponin I High Sens < 2.7 (<3.5-17.0) ng/L NT-Pro-B Natriuret Pep 179.3 (<300) pg/mL Urine Color Yellow Urine Appearance Clear Urine pH 6.5 (5.0-9.0) Ur Specific [place] <= 1.005 (1.005-1.025) Urine Protein Negative (Neg-Trace) mg/dL Urine Glucose (UA) Negative (Negative) mg/dL Urine Ketones Negative (Negative) mg/dL Urine Blood Negative (Negative) Urine Nitrite Negative (Negative) Ur Leukocyte Esterase Negative (Negative) Influenza Type A (PCR) NEGATIVE (Negative) Influenza Type B (PCR) NEGATIVE (Negative) RSV RNA Qual (PCR) NEGATIVE (Negative) SARS-CoV-2 RNA (RT-PCR) NEGATIVE (Negative) Independent Interpretation I performed an independent interpretation of an: EKG Interpretation: Rate:64 Rhythm: NSR [place]: 53/25/8 Normal P waves. Normal ANGELA. Normal QRS complex. ST T wave : no dep, elev qTC:389 prior studies:similar The study has been interpreted contemporaneously by me. Radiology Impression Discussion of test interpretation with radiology: I have reviewed the radiologist's reading. Radiologist Impression: CTA Chest PE: IMPRESSION: 1. No central pulmonary embolism. 2. Mild bibasilar atelectasis of the pneumonitis. Please consider attention on follow-up to ensure resolution. Independent Historian Clinical information obtained from an independent historian. History obtained from or confirmed by: Other (Daughter) External Record Review External record reviewed: Other (Prior ER visits) Chronic Conditions Patient?s care impacted by: Hypertension and Other (Prior DVT) Social Determinants Patient?s care significantly limited by Social Determinants of Health including: Problems related to primary support group Discharge Plan Discharge Clinical Impression: Dependent edema Patient Disposition: Home, Self-Care Instructions: Leg Edema (ED) Additional Instructions: As we discussed, you had an extensive workup in the emergency department today. Your imaging, lab work, etc was overall very reassuring. The CT of your chest did not show any evidence of pneumonia, or pulmonary embolism. It does show atelectasis, which should be followed up with your primary care provider outpatient. Your potassium level was mildly low, where he would be oral pills to bring list number back out. Your COVID, flu, RSV panel is also negative, and urine sample showed no signs of infection. We would like for you to follow-up with your PCP within 1 week. Please return to the ED for reassessment at any time with any worsening or new complaints. Prescriptions: No Action Xarelto 20 mg tablet 1 tab PO QPM amoxicillin-pot clavulanate 875-125 mg tablet 1 tab PO BID Qty: 20 0RF tramadol 50 mg tablet 50 mg PO BID PRN (Reason: pain) Qty: 6 0RF cefuroxime axetil 250 mg tablet 250 mg PO BID 7 Days Qty: 14 0RF ondansetron 4 mg tablet,disintegrating 4 mg PO Q6H PRN (Reason: nausea and vomiting) Qty: 14 0RF mvgqywuqpg-bptuutcewazhp-uece 50-325-40 mg tablet 1 tab PO TID PRN (Reason: migraine) sertraline 50 mg tablet 50 mg PO DAILY hydrochlorothiazide 12.5 mg capsule 12.5 mg PO DAILY Referrals: Kelsey Huggins MD [Primary Care Provider, Internal Medicine] Print Language: Citizen [place]
[2025-07-02 21:56] LABS: MANUAL DIFF FLAG NO
[2025-07-02 21:57] LABS: Hematocrit 35.3 % (37.0-47.0); Hemoglobin 11.4 g/dl (12.0-16.0); Imm Gran Abs Auto 0.03 X10*3/uL (0.00-0.03); Imm Gran Pct Auto 0.5 % (0.0-0.4); Lymphocytes Absolute Auto 2.9 X10*3/uL (1.2-4.9); Mean Corpuscular HGB Conc 32.3 g/dl (31.0-35.0); Mean Corpuscular Hemoglobin 27.9 pg (27.0-33.0); Mean Corpuscular Volume 86.3 fL (80.0-98.0); NRBC Abs Auto 0.000 X10*3/uL (0.0-0.012); NRBC Pct Auto 0.0 /100WBC (0.0-0.2); Platelet Count 188 X10*3/uL (160-400); Red Blood Count 4.09 X10*6/uL (4.20-5.50); White Blood Count 6.4 X10*3/uL (4.8-10.8)
[2025-07-02 22:04] LABS: INTERNATIONAL NORM RATIO 1.0 (0.9-1.1); Prothrombin Time 12.8 SEC (11.2-13.5)
[2025-07-02 22:12] LABS: Anion Gap 12 (12-20); Blood Urea Nitrogen 6 mg/dL (9-16); Calcium 9.3 mg/dL (8.4-10.2); Carbon Dioxide 25 mmol/L (22-29); Chloride 108 mmol/L (96-108); Creatinine Clr Calc Pharmacy 110.9; Estimated Glomerular Filt Rate > 60; Magnesium 2.1 mg/dL (1.6-2.6); Potassium 3.2 mmol/L (3.3-5.1); Sodium 142 mmol/L (135-145)
[2025-07-02 22:13] LABS: Appearance Urine Clear; Glucose Urine UA Negative (Negative); PH 6.5 (5.0-9.0); Specific Gravity - Urine <= 1.005 (1.005-1.025)
[2025-07-02 22:20] LABS: NT Pro B Type Natriuretic Pept 179.3 pg/mL (<300)
[2025-07-02 22:22] LABS: Troponin-I High Sensitivity < 2.7 ng/L (<3.5-17.0)
--- NOTE | 2025-07-02 22:23 | PC.NURSE ---
Patient away for imaging.
[2025-07-02 22:33] LABS: Resp Syncy Virus RNA Qual PCR NEGATIVE (Negative); SARS COV2 PCR INHOUSE NEGATIVE (Negative)
--- NOTE | 2025-07-02 22:38 | PC.NURSE ---
Patient returned from imaging at this time. Awaiting results. Pt ambulated with steady gait between radiology & ED bed 8. Care ongoing by this RN.
[2025-07-02 23:05] VITALS: BP 108/63; PULSE 66; RESP 14; TEMP 36.9; O2SAT 100
[2025-07-03 00:58] VITALS: BP 120/78; PULSE 66; RESP 16; TEMP 36.8; O2SAT 98
[2025-07-03] MEDS: iohexoL 350 MG/ML 100 ML INFUS..BTL 65 ML IV (01:05)
[2025-07-03] MEDS: Potassium Chloride ER 20 MEQ TAB.ER.PRT 40 MEQ PO (01:16)
[2025-07-03 01:26] VITALS: BP 120/78; PULSE 66; RESP 16; TEMP 36.8; O2SAT 98
== END 2025-07-03 01:27 | disposition home or self-care (01) ==
PROVIDERS: Nurse Practitioner; Emergency Provider Student in an Organized Health Care Education/Training Program; PCP Internal Medicine
DX: R60.0 Localized edema (principal); R06.02 Shortness of breath; I10 Essential (primary) hypertension; M79.89 Other specified soft tissue disorders; R00.0 Tachycardia, unspecified; Z79.899 Other long term (current) drug therapy; Z03.818 Encounter for observation for suspected exposure to other biological agents ruled out
CPT/HCPCS: 71275; 80048; 81003; 83735; 83880; 84484; 85025; 85610; 87637; 93005; 99284; Q9967

== ENCOUNTER → 2025-07-02 21:28 | Outpatient (BNV) | payer MEDICAID, SELFPAY | PROVIDERS: Emergency Provider Student in an Organized Health Care Education/Training Program; PCP Internal Medicine; Visit Provider Radiology Neuroradiology | DX: J18.9 Pneumonia, unspecified organism (principal); J98.11 Atelectasis | CPT/HCPCS: 71275 ==

== ENCOUNTER → 2025-07-02 21:28 | Outpatient (BNV) | payer MEDICAID, SELFPAY | PROVIDERS: Emergency Provider Student in an Organized Health Care Education/Training Program; PCP Internal Medicine; Visit Provider Internal Medicine Cardiovascular Disease | DX: R06.02 Shortness of breath (principal) | CPT/HCPCS: 93010 ==